=== PATIENT | female | born 1990 | race African-American/Black ===

== ENCOUNTER 2020-05-26 18:20 | Emergency (ER) | payer SELFPAY ==
--- NOTE | ~2020-05-26 | CT_ITS ---
EXAMINATION: CT brain wo con EXAM DATE: 05/26/2020 20:20 INDICATION: Headache, body numbness and tingling, poor appetite. TECHNIQUE: Spiral CT of the head was performed without contrast. Axial, coronal and sagittal images were reviewed. The dose-length product (DLP) for this examination was 681.00 mGy-cm. The exposure w as tailored according to patient size, and iterative reconstruction (ASIR) was used as additional dos e reduction technique. There is no prior study for comparison. FINDINGS: There is no acute intraparenchymal hemorrhage. No evidence of intraparenchymal brain mass lesion. No evidence of acute infarction. There is no mass effect or midline shift. The ventricles are normal in size. There are no extra-axial collections. There are no acute calvarial fractures. T he orbits are unremarkable. Soft tissue is unremarkable. There is mild to moderate bilateral ethmoi d mucoperiosteal thickening. IMPRESSION: 1. No acute intracranial findings. 2. Mild to moderate ethmoid mucoperiosteal thickening. Reviewed, dictated and finalized at location A.
[2020-05-26 18:25] VITALS: BP 117/82; PULSE 80; RESP 17; TEMP 36.9; O2SAT 100
[2020-05-26 18:47] LABS: Basophils Absolute Auto 0.1 K/mm3 (0.0-0.1); Basophils Percent Auto 0.6 % (0.2-1.2); Eosinophils Absolute Auto 0.4 K/mm3 (0-0.3); Eosinophils Percent Auto 3.3 % (0-4.4); Hematocrit 37.2 % (37.0-47.0); Hemoglobin 11.9 g/dL (12.0-15.0); Immature Granulocyte Absolute 0.04 K/mm3 (0.00-0.031); Immature Granulocyte Percent A 0.4 % (0-0.5); Lymphocytes Absolute Auto 2.93 K/mm3 (0.9-3.2); Lymphocytes Percent Auto 25.8 % (18.3-44.2); Mean Corpuscular Hemoglobin 27.6 pg (26-34); Mean Corpuscular Volume 86.3 fl (80-100); Mean Platelet Volume 8.9 fl (7.4-10.4); Monocytes Absolute Auto 0.9 K/mm3 (0.1-0.6); Monocytes Percent Auto 7.8 % (2.6-8.5); Neutrophils Percent Auto 62.1 % (45.5-73.1); Platelet Count Result 447 k/mm3 (150-375); Red Blood Count 4.31 M/mm3 (4.2-5.4); Red Cell Distribution Width 13.9 % (11.5-14.5); White Blood Count 11.4 K/mm3 (4.5-10.0)
[2020-05-26 18:51] LABS: Add Urine Microscopic? YES; Appearance Urine Clear (Clear); Bacteria Urine Trace /hpf; Bilirubin Urine Negative (Negative); Blood Urine Negative (Negative); Color Urine Straw (Yellow); Glucose Urine UA Negative (Negative); Ketones Urine Negative (Negative); Leukocyte Esterase Ur Trace LEU/UL (Negative); Mucus Urine Rare /lpf; Nitrate Urine Negative (Negative); Protein Urine Negative (Negative); Squamous Epithelial Cell Urine Many /hpf (Few); Urobilinogen Urine Negative mg/dL (<2.0); WBC Urine 0-3 /hpf
[2020-05-26 18:59] LABS: Alanine Aminotransferase 17 U/L (4-35); Albumin Level 4.4 g/dL (3.5-5.1); Alkaline Phosphatase 65 U/L (38-126); Anion Gap 10.8 mmol/L (7-16); Aspartate Amino Transferase 31 U/L (14-36); Bilirubin,Total < 0.1 mg/dL (0.2-1.3); Blood Urea Nitrogen 8 mg/dL (7-17); Calcium 9.1 mg/dL (8.4-10.2); Carbon Dioxide 26 mmol/L (22-30); Chloride 104 mmol/L (98-107); Estimated CRCL calculation 116 ml/min; Estimated Glomerular Filt Rate > 60; Glucose 85 mg/dL (65-105); Lipase 51 U/L (23-300); Potassium 3.8 mmol/L (3.4-5.0); Sodium 137 mmol/L (137-145)
--- NOTE | 2020-05-26 19:09 | ED.HA ---
HPI - Headache General Chief Complaint: Headache Stated Complaint: Headache/tingling Time Seen by Provider: 05/26/20 19:08 History of Present Illness HPI Narrative: She has had frequent headaches for the past couple of months. They start in the back of the neck and radiate through the quaker. She says that she can feel something crawling under her skin in her face. She reports that she also has worms in her urine and feces. She was seen about her symptoms at an outside hospital and had what appears to be a negative work-up and was refered for an MRI. She says that she was feeling better so she di not get it. Related Data Home Medications Medication Instructions Recorded Confirmed No Home Medications 05/26/20 05/26/20 Allergies Allergy/AdvReac Type Severity Reaction Status Date / Time No Known Allergies Allergy Verified 05/26/20 18:38 Review of Systems Review of Systems: All systems reviewed & are unremarkable except as noted in HPI and below Constitutional: Constitutional: Reports fatigue and Denies fever(s) Eyes: Eyes: Denies change in vision Cardiovascular: Cardiovascular: Denies chest pain Respiratory: Respiratory: Denies dyspnea Gastrointestinal: Gastrointestinal: Reports nausea Genitourinary: Genitourinary: Denies dysuria Integumentary/Breasts: Skin/Breast: Reports pruritus Neurologic: Reports dizziness, Reports headache(s) and Reports weakness PMFSH Social History Social History (Updated 06/02/20 @ 02:05 by Miller Bonilla MD) Smoking status: Never smoker Gender identity (if verbalized by the patient): Female Exam Const: General: healthy appearing, no acute distress and alert Orientation/consciousness: patient oriented x3 HENMT: Head: normal to inspection Neck: Neck: normal visual inspection and no lymphadenopathy Chest: Chest palpation & inspection: no tenderness Resp: Effort & Inspection: normal respiratory effort Auscultation: clear to auscultation bilaterally, no rales, no rhonchi and no wheezes Cardio: Jugular venous distension: no JVD Rate: regular rate Rhythm: regular rhythm Heart sounds: no murmurs GI: Inspection: non-distended GI Palp: Yes Soft to palpation and No Tenderness to palpation present (GI) Skin: General skin exam: normal color Neuro: General: patient oriented x3 and moves all extremities Speech: normal speech Extrem: General: no edema Psych: Appearance: well kempt Affect: normal affect Course Vital Signs Vital signs: Vital Signs Temperature 36.9 C 05/26/20 18:25 Pulse Rate 80 05/26/20 18:25 Respiratory Rate 17 05/26/20 18:25 Blood Pressure 117/82 05/26/20 18:25 Pulse Oximetry 100 05/26/20 18:25 Temperature 36.7 C 05/26/20 20:40 Pulse Rate 81 05/26/20 20:40 Respiratory Rate 16 05/26/20 20:40 Blood Pressure 116/71 05/26/20 20:40 Pulse Oximetry 98 05/26/20 20:40 MDM - Headache MDM Narrative Medical decision making narrative: Benign exam. I watched the video she provided and it appears to be mucous in her toillet. Will get stool studies if sample is provided. CT brain negative. Feeling better with symptomatic treatment. Lab Data Result diagrams: 05/26/20 18:41 05/26/20 18:41 Labs: Lab Results 05/26/20 05/26/20 05/26/20 Range/Units 18:41 18:41 18:41 WBC 11.4 H (4.5-10.0) K/mm3 RBC 4.31 (4.2-5.4) M/mm3 Hgb 11.9 L (12.0-15.0) g/dL Hct 37.2 (37.0-47.0) % MCV 86.3 (80-100) fl MCH 27.6 (26-34) pg MCHC 32.0 (32-36) g/dl RDW 13.9 (11.5-14.5) % Plt Count 447 H (150-375) k/mm3 MPV 8.9 (7.4-10.4) fl Immature Gran % (Auto) 0.4 (0-0.5) % Neut % (Auto) 62.1 (45.5-73.1) % Lymph % (Auto) 25.8 (18.3-44.2) % [place] % (Auto) 7.8 (2.6-8.5) % Eos % (Auto) 3.3 (0-4.4) % Baso % (Auto) 0.6 (0.2-1.2) % Lymph # (Auto) 2.93 (0.9-3.2) K/mm3 [place] # (Auto) 0.9 H (0.1-0.6) K/mm3 Eos # (Auto) 0.4
[2020-05-26] MEDS: KETOROLAC 30 MG/ML VIAL (*BKC) IV PUSH (19:46)
[2020-05-26] MEDS: SODIUM CHLORIDE 0.9% IV 1,000 ML 999 ML IV CONT (19:46)
[2020-05-26] MEDS: METOCLOPRAMIDE HCL INJ 10 MG/2 ML VIAL IV PUSH (19:47)
[2020-05-26] MEDS: diphenhydrAMINE HCl INJ 50 MG/ML VIAL 25 MG IV PUSH (19:47)
[2020-05-26 20:07] VITALS: BP 114/73; PULSE 84; RESP 16; O2SAT 98
--- NOTE | 2020-05-26 20:07 | PC.NURSE ---
pt asked for tylenol iv to be stopped because it was making her dizzy. aware. no new orders
[2020-05-26 20:40] VITALS: BP 116/71; PULSE 81; RESP 16; TEMP 36.7; O2SAT 98
== END 2020-05-26 20:41 | disposition home or self-care (01) ==
PROVIDERS: Emergency Medicine; Emergency Provider Emergency Medicine
DX: R51 Headache (principal)
CPT/HCPCS: 36415; 70450; 80053; 81001; 81025; 83690; 85025; 96361; 96374; 96375; 99284; J0131; J1200; J1885; J2765; J7030

== ENCOUNTER 2020-07-02 08:54 | Outpatient (CLI) | payer OTHER, SELFPAY ==
--- NOTE | ~2020-07-02 | MR_ITS ---
EXAMINATION: MR brain/brain stem wo/w con DATE: 07/02/2020 10:07 CDT INDICATION: Intermittent severe headache with paresthesias. TECHNIQUE: Magnetic resonance imaging (MRI) of the brain and brainstem was performed without and with 16 cc MultiHance intravenous contrast. Sequences included sagittal and axial T1-weighted SE, axial d iffusion-weighted FS SE, axial T2*-weighted GRE, axial T2-weighted FLAIR Propeller, and axial T2-weig hted Propeller. Apparent diffusion coefficient (ADC) maps were created. COMPARISON: FINDINGS: The brain volume and ventricular system are within normal limits. The brain parenchymal si gnal intensity pattern and milan/white matter is normal and there is no evidence of hemorrhage, space occupying masses or infarctions. The flow signal voids of the major arterial structures about the [place] and within the parth r dural venous sinuses appear grossly unremarkable and patent. The seventh and eighth cranial nerve complexes are normal. The mid sagittal image demonstrates a normal craniovertebral junction and kenny us callosum. There is mucosal thickening of the frontal and ethmoid sinuses. There is rightward nasal septal deviation. Left-sided chandrakant bullosa. No abnormal contrast enhancement was appreciated. IMPRESSION: 1: Mild sinus disease. Otherwise, unremarkable MRI of the brain. Reviewed, dictated and finalized at location A.
[2020-07-02 09:33] LABS: Estimated Glomerular Filt Rate > 60
== END 2020-07-02 08:55 | disposition home or self-care (01) ==
PROVIDERS: PCP Internal Medicine; Visit Provider Emergency Medicine
DX: R51 Headache (principal); R20.2 Paresthesia of skin; J32.9 Chronic sinusitis, unspecified
CPT/HCPCS: 70553; A9577

== ENCOUNTER 2020-07-08 06:33 | Outpatient (CLI) | payer OTHER, SELFPAY ==
--- NOTE | 2020-07-08 12:17 | WPDNEUROLOGY ---
Neurology EEG Report General Information Date of Study: 07/08/20 TEST EEG DIAGNOSIS dizzy spells CONDITION OF RECORDING Awake drowsy and sleep EEG NUMBER [id number] CLINICAL HISTORY patient reported for the last couple of months she has been feeling like something is moving around in her head which makes her dizzy and gives her headaches EEG DESCRIPTION basic resting occipital frequency consist of moderate amount of well-organized low to medium voltage 8 to 10 hertz per 2nd alpha admixed with low-voltage 15 to 18 hertz per 2nd beta. During drowsiness low-voltage beta activity seen diffusely admixed with waxing and waning alpha activity. Bilateral symmetrical sleep activity seen during sleep with normal and symmetrical sleep spindles. Normal EKG artifact is noted intermittently. Non paroxysmal. Nonfocal. Nonlateralizing. IMPRESSION Normal EEG during wakefulness drowsiness and sleep
== END 2020-07-08 06:34 | disposition home or self-care (01) ==
PROVIDERS: PCP Internal Medicine; Visit Provider Internal Medicine
DX: R42 Dizziness and giddiness (principal)
CPT/HCPCS: 95819

== ENCOUNTER 2020-08-05 15:35 | Emergency (ER) | payer OTHER, SELFPAY ==
--- NOTE | 2020-08-05 15:50 | PC.NURSE ---
pt states she is going to another facility to be evaluated. discussed risks of leaving. verbalizes understanding.
== END 2020-08-05 16:03 | disposition left against medical advice (07) ==
PROVIDERS: PCP Internal Medicine
DX: Z53.21 Procedure and treatment not carried out due to patient leaving prior to being seen by health care provider (principal)
CPT/HCPCS: 99199

== ENCOUNTER 2020-08-16 16:08 | Outpatient (CLI) | payer OTHER, SELFPAY ==
[2020-08-16 16:43] LABS: Add Urine Microscopic? YES; Appearance Urine Clear (Clear); Bacteria Urine Trace /hpf; Bilirubin Urine Negative (Negative); Blood Urine Negative (Negative); Color Urine Straw (Yellow); Glucose Urine UA Negative (Negative); Ketones Urine Trace mg/dL (Negative); Leukocyte Esterase Ur Trace LEU/UL (Negative); Nitrate Urine Negative (Negative); Protein Urine Negative (Negative); RBC Urine 0-2 /hpf (0-2); Specific Grav Ur 1.006 (1.001-1.035); Squamous Epithelial Cell Urine Many /hpf (Few); Urobilinogen Urine Negative mg/dL (<2.0); WBC Urine 0-3 /hpf
== END 2020-08-16 16:09 | disposition home or self-care (01) ==
LOC: ANHLAB 16:15
PROVIDERS: PCP Internal Medicine; Visit Provider Internal Medicine
DX: R82.90 Unspecified abnormal findings in urine (principal)
CPT/HCPCS: 81001; 87177; 87209

== ENCOUNTER 2021-02-14 19:57 | Emergency (ER) | payer OTHER, SELFPAY ==
[2021-02-14 20:04] VITALS: BP 108/59; PULSE 116; RESP 20; TEMP 36.7; O2SAT 99
--- NOTE | 2021-02-14 21:38 | ED.URI ---
HPI - URI/Sore Throat General Chief Complaint: Upper Respiratory Infection Stated Complaint: PANIAGUA, BODYACHES, RUNNY NOSE, INSOMNIA, 24 WKS PREG Time Seen by Provider: 02/14/21 21:10 Source: patient Mode of arrival: ambulatory Limitations: no limitations History of Present Illness HPI Narrative: Patient is a 31-year-old female complaining of nasal congestion, runny nose and sore throat that started yesterday. Patient also complaining of not being able to sleep well for the past few months. Patient states that she is 24 weeks . Patient denies any chest pain, shortness of breath, abdominal pain, nausea, vomiting, diarrhea, fever, chills, vaginal bleeding or discharge. Patient wants to get tested for Covid. Related Data Home Medications Medication Instructions Recorded Confirmed No Home Medications 05/26/20 05/26/20 Allergies Allergy/AdvReac Type Severity Reaction Status Date / Time No Known Allergies Allergy Verified 05/26/20 18:38 Review of Systems Review of Systems: All systems reviewed & are unremarkable except as noted in HPI and below Constitutional: Constitutional: Denies body ache(s), Denies chills, Denies excessive sweating, Denies fatigue, Denies fever(s), Denies headache(s), Denies lethargy, Denies malaise, Denies weakness and Denies weight loss Eyes: Eyes: Denies blurry vision, Denies change in vision and Denies loss of vision ENT: Denies dizziness, Denies ear discharge, Denies headache(s), Denies lip swelling, Denies epistaxis, Denies neck pain, Denies throat swelling and Denies tongue swelling Cardiovascular: Cardiovascular: Denies chest pain, Denies chest pain at rest, Denies chest pain with activity, Denies diaphoresis, Denies rapid heart rate, Denies edema, Denies irregular heart rhythm, Denies lightheadedness, Denies palpitations, Denies dyspnea and Denies dyspnea on exertion Respiratory: Respiratory: Denies chest congestion, Denies cough, Denies hemoptysis, Denies dyspnea and Denies dyspnea on exertion Gastrointestinal: Gastrointestinal: Denies abdominal pain, Denies melena, Denies hematochezia, Denies diarrhea, Denies nausea, Denies vomiting and Denies hematemesis Musculoskeletal: Musculoskeletal: Denies abnormal gait, Denies deformity, Denies joint swelling, Denies limited range of motion, Denies neck pain and Denies numbness Neurologic: Denies Abnormal speech present, Denies abnormal gait, Denies confusion, Denies dizziness, Denies headache(s), Denies focal weakness, Denies loss of vision, Denies numbness, Denies Other visual disturbances, Denies Sensory deficit (Neuro) and Denies weakness Psychiatric: Psychiatric: Denies confusion, Denies depression, Denies auditory hallucinations, Denies homicidal ideation and Denies suicidal ideation Endocrine: Endocrine: Denies cold intolerance, Denies excessive sweating, Denies fatigue, Denies heat intolerance and Denies palpitations Hematologic/Lymphatic: Hematologic/Lymphatic: Denies easy bleeding and Denies easy bruising Allergic/Immunologic: Allergic/Immunologic: Denies lip swelling, Denies throat swelling and Denies tongue swelling [facility] Social History Social History (Updated 06/02/20 @ 02:05 by Miller Bonilla MD) Smoking status: Never smoker Gender identity (if verbalized by the patient): Female Comments Past medical history: None Family history: Noncontributory Social history: Non-smoker no EtOH or drug use Exam Const: General: cooperative, healthy appearing, comfortable, no acute distress, well developed, alert and awake; No confusion Orientation/consciousness: oriented to person, oriented to place, oriented to time, patient oriented x3 and No confusion Limitations: no limitations HENMT: Head: normal to inspection, normocephalic and atraumatic Ears: hearing grossly normal bilaterally, TM normal on the right and TM normal on the left General nose exam: Normal external nose present and Normal nares present Face and sinus: normal f
[2021-02-14 21:52] VITALS: BP 103/57; PULSE 100; RESP 16; O2SAT 100
[2021-02-15 18:21] LABS: SARS-CoV-2 RNA PCR Negative
== END 2021-02-14 22:03 | disposition home or self-care (01) ==
PROVIDERS: Emergency Provider Emergency Medicine; PCP Advanced Practice Midwife
DX: O99.512 Diseases of the respiratory system complicating pregnancy, second trimester (principal); J06.9 Acute upper respiratory infection, unspecified; Z20.822 Contact with and (suspected) exposure to COVID-19; Z3A.24 24 weeks gestation of pregnancy
CPT/HCPCS: 99283; C9803; U0003; U0005

== ENCOUNTER 2021-05-20 21:56 | Inpatient (IN) | payer OTHER, SELFPAY ==
[2021-05-20 22:22] VITALS: BP 130/78; PULSE 104
[2021-05-20 22:31] VITALS: BP 132/51; PULSE 87
[2021-05-20 22:46] VITALS: BP 117/74; PULSE 101
[2021-05-20 23:00] VITALS: BP 125/76; PULSE 89
[2021-05-20 23:30] VITALS: BMI 34.4
[2021-05-21] VITALS (96 sets, daily range): BP systolic 98–145; BP diastolic 46–91; PULSE 65–130; RESP 16; TEMP 36.4–37.1; O2SAT 84–100
[2021-05-21 00:25] LABS: Basophils Percent Auto 0.3 % (0.2-1.2); Eosinophils Absolute Auto 0.2 K/mm3 (0-0.3); Eosinophils Percent Auto 1.7 % (0-4.4); Hemoglobin 9.6 g/dL (12.0-15.0); Immature Granulocyte Absolute 0.04 K/mm3 (0.00-0.031); Immature Granulocyte Percent A 0.4 % (0-0.5); Lymphocytes Absolute Auto 1.67 K/mm3 (0.9-3.2); Lymphocytes Percent Auto 17.7 % (18.3-44.2); Mean Corpuscular Volume 80.7 fl (80-100); Mean Platelet Volume 11.1 fl (7.4-10.4); Monocytes Percent Auto 10.4 % (2.6-8.5); Neutrophils Absolute Auto 6.6 K/mm3 (1.3-6.7); Neutrophils Percent Auto 69.5 % (45.5-73.1); Platelet Count Result 316 k/mm3 (150-375); Red Blood Count 3.84 M/mm3 (4.2-5.4); Red Cell Distribution Width 17.2 % (11.5-14.5); White Blood Count 9.4 K/mm3 (4.5-10.0)
--- NOTE | 2021-05-21 04:15 | OBADM ---
This patient, Ysabel Roy, admitted to the OB room Labor/Delivery/Recovery 105 for observation. Patient/family oriented to hospital policies and general routines including ID bracelet, bed and alarms, visiting hours, pain management, procedures, bathroom and other care routines, personal items, smoking policy, room service/diet, and visiting hours. Patient/Family are encouraged to report perceived risks to care and to ask questions if they do not understand what they are told or what they should do.
[2021-05-21] MEDS: LACTATED RINGERS 1,000 ML 125 ML IV CONT ×2 (07:03→08:48)
--- NOTE | 2021-05-21 07:10 | P.PNAN_ITS ---
Anes - Eval Pre Procedure Procedure: labor epidural Date/Time: 05/21/21 07:10 Surgeon: germain Pre Op Diagnosis: CTX Patient Data Age: 31 Gender: F Height: 1.63 m Weight: 91 kg Last Vital Signs Temp 36.8 C 05/21/21 04:00 Pulse 82 05/21/21 07:04 BP 130/46 L 05/21/21 07:04 Allergies Allergy/AdvReac Type Severity Reaction Status Date / Time No Known Allergies Allergy Verified 05/26/20 18:38 Home Medications Medication Instructions Recorded Confirmed Type No Home Medications 05/26/20 05/21/21 History Laboratory Tests 05/20/21 05/20/21 05/20/21 23:58 23:58 23:58 WBC 9.4 K/mm3 K/mm3 (4.5-10.0) RBC 3.84 M/mm3 L M/mm3 (4.2-5.4) Hgb 9.6 g/dL L g/dL (12.0-15.0) Hct 31.0 % L % (37.0-47.0) MCV 80.7 fl fl (80-100) MCH 25.0 pg L pg (26-34) MCHC 31.0 g/dl L g/dl (32-36) RDW 17.2 % H % (11.5-14.5) Plt Count 316 k/mm3 k/mm3 (150-375) MPV 11.1 fl H fl (7.4-10.4) Immature Gran % (Auto) 0.4 % % (0-0.5) Neut % (Auto) 69.5 % % (45.5-73.1) Lymph % (Auto) 17.7 % L % (18.3-44.2) [place] % (Auto) 10.4 % H % (2.6-8.5) Eos % (Auto) 1.7 % % (0-4.4) Baso % (Auto) 0.3 % % (0.2-1.2) Lymph # (Auto) 1.67 K/mm3 K/mm3 (0.9-3.2) [place] # (Auto) 1.0 K/mm3 H K/mm3 (0.1-0.6) Eos # (Auto) 0.2 K/mm3 K/mm3 (0-0.3) Baso # (Auto) 0.0 K/mm3 K/mm3 (0.0-0.1) Abs Immat Gran (auto) 0.04 K/mm3 H K/mm3 (0.00-0.031) Absolute Neuts (auto) 6.6 K/mm3 K/mm3 (1.3-6.7) Absolute Nucleated RBC 0.0 K/mm3 K/mm3 (0.0-0.012) Nucleated RBC % 0.0 % % (0.0-0.2) RPR Pending Blood Type O Positive Antibody Screen Negative Patient hx anesthesia problems: none Family hx anesthesia problems: none PMFSH Social History Social History (Updated 06/02/20 @ 02:05 by Miller Bonilla MD) Smoking status: Never smoker Second hand tobacco smoke exposure: No Substance use: never Gender identity (if verbalized by the patient): Female Sexual Orientation (if Verbalized by the Patient): Straight or Heterosexual Spiritual care concerns: No Exam Day of Procedure 05/21/21 07:10
--- NOTE | 2021-05-21 07:26 | WPDOBADMIT ---
Obstetrics - Admit Note Admission Note: record reviewed. No pertinent additions to the history and/or any subsequent changes in the physical findings that are not consistent with the expected course of the were found. Pt arrived in labor SVE by RN currently 6cm, plans epidural, GBS negative Additions to the history and/or subsequent changes in the physical findings follow. None.
--- NOTE | 2021-05-21 07:52 | PM.OBPNLAB ---
Pain Control Date/time seen: 05/21/21 07:52 AROM minimal amount of odorless fluid, anticipate vaginal delivery
[2021-05-21] MEDS: OXYTOCIN 30 UNITS/NS 500 ML 30 UNITS/500 ML BAG IV CONT (08:48)
--- NOTE | 2021-05-21 12:15 | P.PCNOB_ITS ---
OB - Delivery Note Procedure Delivery date: 05/21/21 Procedure: vaginal delivery Intrapartal events: None Delivery augmentation: rupture of membranes Delivery monitor: external FHT, external uterine and internal uterine Route of delivery: Laceration Description: Periurethral (left) Delivery repair: vicryl Specimen: No Quantitative Blood Loss (ml): 85 Anesthesia type: Epidural Disposition: floor [place] Baby Date of : 05/21/21 Time of : 11:59 Weeks of gestation at delivery: 37 gender: Male Weight (pounds): 6 Weight (ounces): 15 presentation: vertex position: Left Occiput Anterior Placenta delivery description: Spontaneous cord vessel description: 3 Vessels and Clamped/Cut score one minute: 7 score five minutes: 9 Narrative: mother and baby skin to skin in stable condition
[2021-05-21] MEDS: OXYTOCIN 30 UNITS/NS 500 ML 30 UNITS/500 ML BAG 125 UNITS IV CONT (12:29)
[2021-05-21] MEDS: WITCH HAZEL 40 PADS 1 PAD TOPICAL (12:30)
[2021-05-21] MEDS: BENZOCAINE 20% AER SPR (*SP) 56 GM CAN 1 SPRAY TOPICAL (12:30)
--- NOTE | 2021-05-21 16:42 | PC.NURSE ---
Patient transferred to post room #283 via wheelchair. Support person present. Oriented to unit, room, information board, rooming in, admission packet and security measures. Patient verbalizes understanding.
[2021-05-21] MEDS: IBUPROFEN 600 MG TABLET PO (17:43)
[2021-05-21] MEDS: ACETAMINOPHEN 325 MG TABLET 650 MG PO (20:45)
[2021-05-22] VITALS: BP 129/74; PULSE 86; RESP 16; TEMP 36.6
[2021-05-22 05:10] LABS: Hematocrit 28.1 % (37.0-47.0); Hemoglobin 8.8 g/dL (12.0-15.0)
--- NOTE | 2021-05-22 07:35 | WPDANLDPN2 ---
Anes-Prog Note L&D Date/Time: 05/22/21 07:35 Comfortable throughout: labor and delivery Neuraxial method: epidural Epidural/Spinal procedure site: clean & non-tender Neuro status: Neuro function grossly intact. Cardiovascular status: normal Respiratory status: normal Airway patency: baseline Mental status: baseline Post-Op hydration status: normal Vital Signs: Last Vital Signs Temp 36.6 C 05/22/21 00:00 Pulse 86 05/22/21 00:00 Resp 16 05/22/21 00:00 BP 129/74 05/22/21 00:00 Pulse Ox 100 05/21/21 16:45 Pain score (VAS): 0 I/O: Intake & Output 05/21/21 05/21/21 05/22/21 15:59 23:59 07:59 Intake Total 2000 Output Total 85 108 Balance 1915 -108 Post-procedural complaints: none Patient feedback: Patient satisfied with anesthetic care.
[2021-05-22] MEDS: POLYSACCHARIDE IRON COMPLEX 150 MG CAPSULE PO ×2 (07:43→16:04)
[2021-05-22] MEDS: MULTIVIT/MIN/PREN/FOL AC/IRON TABLET 1 TAB PO (07:43)
[2021-05-22] MEDS: IBUPROFEN 600 MG TABLET PO ×4 (07:44→22:42)
[2021-05-22] MEDS: DOCUSATE SODIUM 100 MG CAPSULE PO ×2 (07:44→16:04)
--- NOTE | 2021-05-22 07:52 | PM.OBPNVD ---
OB - PN: Subj Subjective Date/time seen: 05/22/21 07:52 Patient comments: no complaints baby status: doing well OB - PN: Obj Data Labs CBC & Chem 7: 05/22/21 04:23 Labs: Laboratory Results - last 24 hr 05/22/21 04:23 Hgb 8.8 L Hct 28.1 L OB - PN A/P Plan day: 1 Plan: routine care Time Spent With Patient Time: Total time spent is greater than 50% in coordination of care (as documented) at patient's floor/unit and/or counseling patient: Time with patient: less than 15 minutes Review of Systems Review of Systems: All systems reviewed & are unremarkable except as noted in HPI and below Exam Narrative: Fundus firm and vaginal flow controlled. No lower ext redness, warmth, or edema. Negative homans. Const: General: comfortable Chest: Breast/axilla inspection: normal inspection of the breasts Resp: Effort & Inspection: normal respiratory effort Cardio: Rate: regular rate GI: GI Palp: Yes Soft to palpation Psych: Appearance: grossly normal Affect: normal affect Attitude: cooperative Thought content: Yes Normal thought content present Judgement: Good judgement present (Psych)
[2021-05-22 07:55] VITALS: BP 126/85; PULSE 76; RESP 16; TEMP 37.2; O2SAT 100
[2021-05-22 08:05] LABS: Rapid Plasma Reagin Non-Reactive (NonReactive)
--- NOTE | 2021-05-22 10:45 | PC.NURSE ---
Consult with pt., mother has to breast. Infant was latched correctly. Infant nursed eagerly with pausing, with steady draws and frequent swallowing noted. Suggested mother stimulate while feeding to increase stimulate, increase intake and to assist with maintaining deep latch. Demonstrated stimulation techniques to wake for feeding. Reviewed signs of a correct latch, effective nursing and suck swallow ratio. Infant nursed eagerly, with steady draws and occasional swallowing noted. was able to maintain latch without discomfort to mother. Demonstrated how to adjust latch more deeply while feeding if needed. Nipple care reviewed of lanolin after feedings, warm compresses as needed. Reviewed infant feeding cues, frequencies, duration of feedings, feeding elimination flow sheet, and signs of adequate intake. Discussed rational for each. Instructed mother to call out for RN assistance if she is unable to latch for feeding or she has discomfort with nursing. is able to freely thrust tongue past gum ridge and flange both lips. Skin is intact on both nipples, no redness and bruising noted. Instructed mother to call out for RN assistance if she is unable to latch for feeding or she has discomfort with nursing. Instructed feeding should be initiated three hours from start of last feeding or if feeding cues are noted before. Mother voiced understanding of information shared.
[2021-05-22 19:16] VITALS: BP 126/72; PULSE 78; RESP 16; TEMP 36.7
[2021-05-23] MEDS: DOCUSATE SODIUM 100 MG CAPSULE PO ×2 (07:15→16:35)
[2021-05-23] MEDS: POLYSACCHARIDE IRON COMPLEX 150 MG CAPSULE PO ×2 (07:15→16:35)
[2021-05-23] MEDS: MULTIVIT/MIN/PREN/FOL AC/IRON TABLET 1 TAB PO (07:15)
[2021-05-23] MEDS: IBUPROFEN 600 MG TABLET PO ×2 (07:15→16:35)
[2021-05-23] MEDS: LANOLIN (LANSINOH) 7.5 GM CREAM 1 APPLIC TOPICAL (07:16)
[2021-05-23 07:40] VITALS: BP 125/79; PULSE 68; RESP 16; TEMP 36.8; O2SAT 99
--- NOTE | 2021-05-23 08:03 | PM.OBPNVD ---
OB - PN: Subj Subjective Date/time seen: 05/23/21 08:03 Patient comments: no complaints baby status: doing well OB - PN: Obj Data Labs CBC & Chem 7: 05/22/21 04:23 Labs: Laboratory Results - last 24 hr 05/20/21 23:58 RPR Non-reactive OB - PN A/P Plan day: 2 Plan: routine care and discharge home (F/U in 4 weeks) Time Spent With Patient Time: Total time spent is greater than 50% in coordination of care (as documented) at patient's floor/unit and/or counseling patient: Time with patient: less than 15 minutes Review of Systems Review of Systems: All systems reviewed & are unremarkable except as noted in HPI and below Exam Narrative: Fundus firm and vaginal flow controlled. No lower ext redness, warmth, or edema. Negative homans. Const: General: comfortable Chest: Breast/axilla inspection: normal inspection of the breasts Resp: Effort & Inspection: normal respiratory effort Cardio: Rate: regular rate GI: GI Palp: Yes Soft to palpation Psych: Appearance: grossly normal Affect: normal affect Attitude: cooperative Thought content: Yes Normal thought content present Judgement: Good judgement present (Psych)
--- NOTE | 2021-05-23 08:05 | P.DS_ITS ---
DS: Admitting Diagnosis Admitting Diagnosis Labor OB - DS: Summary OB Procedures : None OB Procedures Intrapartum: Spontaneous Vag Delivery OB Procedures: : None Time Spent with Patient Time attestation: Total time spent providing and/or coordinating discharge services: DS: Data Data Completed and Pending Labs on day of discharge: Labs from last 24 hours 05/20/21 23:58 RPR Non-reactive Discharge Plan Discharge Attending physician on discharge: Delilah Gordon Discharging Clinician: Martha Ruby Patient Disposition: Home, Self-Care Activity: pelvic rest Diet: as tolerated Patient Instructions: Antibiotic Form Stand Alone Forms: General Discharge Information Follow-up/Referrals: Delilah Gordon CNM [Certified Nurse [employer]] - Discharge Medications: No Action No Home Medications RF: 0 Date of admission: 05/20/21 22:10 Primary Care Provider: Martha Ruby Admitting Provider: Dudley Moeller Attending physician on admission: Dudley Moeller Condition: Stable
--- NOTE | 2021-05-23 11:00 | PC.NURSE ---
Patient viewed the discharge video Mother & Baby Care, The First Two Weeks . Patient was given the opportunity and encouraged to ask questions. Patient verbalized understanding of information shared and has been given the mother/baby guide for home reference.
--- NOTE | 2021-05-23 11:00 | PC.NURSE ---
Mother called out for assist with feeding, reporting tenderness with feedings on both breasts. Mother states infant has been sleepy and latching eagerly, he then gets sleepy and will be on and off for complete of feeding. is able to freely thrust tongue past gum ridge and flange both lips. Skin is intact on both nipples, slight redness noted to right nipple. Reviewed feeding cues, frequencies, duration of feedings, feeding elimination flow sheet, and signs of adequate intake. Demonstrated stimulation techniques to wake for feeding. Assisted with infant to breast. Reviewed positioning/alignment in cross cradle, holding breast in ?U? hold and guided asymmetrical latch on. Discussed rational for each. Infant able to latch correctly. Infant nursed eagerly, with steady draws and frequent swallowing noted. Suggested mother stimulate while feeding to increase stimulate, increase intake and to assist with maintaining deep latch. Reviewed signs of a correct latch, effective nursing and suck swallow ratio. After 3-5 minutes began with long pausing and would release latch. Mother will allow infant to latch shallow and suck nipple in causing her discomfort. Advised to stimulate during entire feeding trying not to allow to fall asleep and release latch or slip to shallow latch. Demonstrated how to adjust latch more deeply while feeding. Mother reports she can feel change in latch and has no tenderness. responds to stimulation with increased nursing. Mother wants to return to cradle, suggested she continue with cross cradle to assist with deep latch. Nipple care reviewed of lanolin after feedings, warm compresses as needed. Mother is able to independently latch with appropriate positioning/alignment. She denies any nipple discomfort, is feeding as required and waking to feed if needed. has had at least 8 effective feedings in the past 24 hours, and is currently meeting outcomes for weight, output, jaundice and feeding frequencies. Mother states she feels confident to continue effective at home. Reviewed transition to breast milk, signs of adequate intake, and engorgement/relief. Instructed to call ICP if intake/output less than required. Reviewed regular medications mother is taking. Information provided per Donna. Reviewed community resources on the [facility] website and in the Mom/Baby guide. Information on outpatient services provided. Mother has no further questions at this time.
[2021-05-23] MEDS: ACETAMINOPHEN 325 MG TABLET 650 MG PO (19:05)
[2021-05-24 09:49] VITALS: BP 122/61; PULSE 81; RESP 18; O2SAT 100
--- NOTE | 2021-05-24 14:18 | PC.NURSE ---
Pt seen for follow up today, with concerns of 2+ edema to both feed and legs, leg pain on standing, temp of 99.9 and pt reports cervix pain. Fátima Gordon was called, orders for Doppler to both legs, [facility] test to be done today. Fátima will call pt after she receives results and to discuss pain. Pt. is engorged and reviewed engorgement/relief.
== END 2021-05-23 19:35 | disposition home or self-care (01) | DRG 560 ==
LOC: ANHLDR 05-21 11:48 → ANHOB2 05-21 16:51
PROVIDERS: Advanced Practice Midwife; Admitting Provider Obstetrics & Gynecology; PCP Advanced Practice Midwife; Visit Provider Obstetrics & Gynecology
DX: O40.3XX0 Polyhydramnios, third trimester, not applicable or unspecified (principal); O71.82 Other specified trauma to perineum and vulva; O98.52 Other viral diseases complicating childbirth; B00.9 Herpesviral infection, unspecified; O76 Abnormality in fetal heart rate and rhythm complicating labor and delivery; O70.0 First degree perineal laceration during delivery; Z3A.37 37 weeks gestation of pregnancy; Z37.0 Single live birth
CPT/HCPCS: 36415; 85014; 85018; 85025; 86592; 86850; 86900; 86901; A9270; J2590; J2795; J7120

== ENCOUNTER 2022-06-24 08:38 | Emergency (ER) | payer OTHER, SELFPAY ==
--- NOTE | ~2022-06-24 | XR_ITS ---
EXAMINATION: XR chest 1V portable DATE: 06/24/2022 09:04 INDICATION: Cough. TECHNIQUE: A single frontal view of the chest was obtained. COMPARISON: None. FINDINGS: The chest demonstrates clear lungs without pneumonia, pleural effusion, or pneumothorax. Th e heart size is normal. IMPRESSION: 1. No acute cardiopulmonary disease. Reviewed, dictated and finalized at location A.
[2022-06-24 08:45] VITALS: BP 115/69; PULSE 94; RESP 20; TEMP 37.3; O2SAT 100
[2022-06-24 09:27] LABS: Influenza A QL RT-PCR Negative (Negative); Influenza B QL RT-PCR Negative (Negative); SARS-CoV-2 RNA PCR Negative
--- NOTE | 2022-06-24 09:43 | ED.URI ---
HPI - URI/Sore Throat General Chief Complaint: Upper Respiratory Infection Stated Complaint: sore throat, head congestion, infection Time Seen by Provider: 06/24/22 08:46 Source: RN notes reviewed History of Present Illness HPI Narrative: Patient presents emergency department from home for upper respiratory infection. Patient states symptoms began yesterday. Patient states she had a subjective fever as well as bilateral ear pressure sore throat and mild nonproductive cough. She denies any measured temperature she denies any rhinorrhea she denies any chest pain shortness of breath abdominal pain nausea vomiting or any other symptoms. Patient states she not take any medications for the symptoms today Related Data Allergies Allergy/AdvReac Type Severity Reaction Status Date / Time No Known Allergies Allergy Verified 05/26/20 18:38 Review of Systems Review of Systems: Gen.: Reports objective fever denies chills Eyes: Denies eye pain or visual change ENT: See HPI Respiratory: Denies shortness of breath reports nonproductive cough CV: Denies chest pain or palpitations GI: Denies abdominal pain nausea, emesis Musculoskeletal: Denies back pain or muscle pain Neuro: Denies numbness, tingling, weakness or focal weakness Skin: Denies rash Except as documented, all other systems reviewed and negative PMFSH Past Medical History Medical History (Updated 06/24/22 @ 10:23 by Marko Galloway DO) Patient denies significant medical history Social History Social History Smoking status: Never smoker Second hand tobacco smoke exposure: No Substance use: never Gender identity (if verbalized by the patient): Female Sexual Orientation (if Verbalized by the Patient): Straight or Heterosexual Spiritual care concerns: No Exam Narrative: APPEARANCE: No acute distress, nontoxic, resting in bed EYES: EOMI HEENT: Normocephalic, atraumatic, TMs clear bilaterally nares patent oral mucosa moist erythema the posterior pharynx and bilateral tonsils tonsils 2+ with mild whitish exudate uvula midline tolerating own secretions no trismus RESPIRATORY: No respiratory distress Clear to auscultation bilaterally with no rhonchi wheezing or rales. CARDIOVASCULAR: Regular rate and rhythm without murmurs rubs or gallops. ABDOMINAL: Soft, nontender, nondistended, no rebound or guarding MUSCULOSKELETAl: Moves all extremities. No clubbing, cyanosis or edema. NEURO: Awake and alert. Following commands, speech normal, no focal deficits SKIN:: Warm, dry. No rashes lesions or abrasions PSYCHIATRIC: Normal affect/mood, Course Course Emergency Course: Discussed with patient results of workup and diagnosis. Discussed need for follow-up with primary care, proper use of medication, and reasons to return to the emergency department. Patient understands and agrees to current treatment plan Vital Signs Vital signs: Vital Signs Temperature 99.2 F 06/24/22 08:45 Pulse Rate 94 06/24/22 08:45 Respiratory Rate 20 06/24/22 08:45 Blood Pressure 115/69 06/24/22 08:45 Pulse Oximetry 100 06/24/22 08:45 Oxygen Delivery Room Air 06/24/22 08:45 Temperature 99.2 F 06/24/22 08:45 Pulse Rate 94 06/24/22 08:45 Respiratory Rate 20 06/24/22 08:45 Blood Pressure 115/69 06/24/22 08:45 Pulse Oximetry 100 06/24/22 08:45 Oxygen Delivery Room Air 06/24/22 08:45 MDM - URI/Sore Throat MDM Narrative Medical decision making narrative: Patient presents with pharyngitis and ear pressure initial strep screen is negative however patient does have exudates bilaterally suspect strep and will place on Augmentin and wait for culture Lab Data Labs: Lab Results 06/24/22 Range/Units 08:43 Influenza A (RT-PCR) Negative (Negative) Influenza B (RT-PCR) Negative (Negative) SARS-CoV-2 RNA (RT-PCR) Negative Strep Screen Presumptive Negative
[2022-06-24] MEDS: ACETAMINOPHEN 500 MG TABLET 1000 MG PO (09:54)
[2022-06-24 10:00] VITALS: O2SAT 100
[2022-06-24] MEDS: AMOXICILLIN/CLAVULANATE K 875-125 MG TAB 1 TABLET PO (10:35)
== END 2022-06-24 10:41 | disposition home or self-care (01) ==
PROVIDERS: Emergency Provider Emergency Medicine; PCP Advanced Practice Midwife
DX: J02.9 Acute pharyngitis, unspecified (principal); Z20.822 Contact with and (suspected) exposure to COVID-19
CPT/HCPCS: 71045; 87081; 87502; 87880; 99283; A9270; C9803; U0003; U0005

== ENCOUNTER 2022-12-26 09:32 | Emergency (ER) | payer OTHER, SELFPAY ==
[2022-12-26 10:12] VITALS: BP 127/70; PULSE 78; RESP 18; TEMP 36.7; O2SAT 98
--- NOTE | 2022-12-26 11:46 | ED.URI ---
HPI - URI/Sore Throat General Chief Complaint: Upper Respiratory Infection Stated Complaint: nasal congestion Time Seen by Provider: 12/26/22 10:55 Source: patient Mode of arrival: ambulatory Limitations: no limitations History of Present Illness HPI Narrative: 32-year-old female presents today with concerns of congestion and body aches that started today. Patient denies fever, cough, shortness of breath, sore throat. Patient denies significant medical history. She is unsure about sick contacts but she does have 2 children at home. MD elicited complaint: nasal congestion Consistency: constant Related Data Allergies Allergy/AdvReac Type Severity Reaction Status Date / Time No Known Allergies Allergy Verified 05/26/20 18:38 Review of Systems Review of Systems: CONSTITUTIONAL: Denies fever, chills, or sweats. EYES: Denies visual changes, redness, or discharge. ENT: Nasal congestion. Denies rhinorrhea, sore throat, or otalgia. CARDIOVASCULAR: Denies chest pain, palpitations, or edema. RESPIRATORY: Denies cough or dyspnea. GASTROINTESTINAL: Denies abdominal pain, nausea, vomiting, or diarrhea. GENITOURINARY: Denies dysuria or hematuria. SKIN: Denies rash or itching. MUSCULOSKELETAL: Myalgia. Denies back pain, joint pain. NEUROLOGIC: Denies headache, numbness, dizziness, or weakness. PSYCHIATRIC: Denies anxiety or depression. [facility] Past Medical History Medical History (Updated 12/26/22 @ 11:48 by Evette Bullard APRN) Patient denies significant medical history Social History Social History Smoking status: Never smoker Second hand tobacco smoke exposure: No Substance use: never Gender identity (if verbalized by the patient): Female Sexual Orientation (if Verbalized by the Patient): Straight or Heterosexual Spiritual care concerns: No Exam Narrative: GENERAL: Well-appearing, well-nourished, and in no acute distress. HEAD: Normocephalic, atraumatic. EYES: PERRLA and EOMI. ENT: Nares clear, no rhinorrhea or epistaxis. Mucous membranes moist. Oropharynx without tonsillar hypertrophy exudate or other lesions. Bilateral TMs pearly milan nonbulging NECK: Supple. No adenopathy or masses. No carotid bruits or JVD CHEST: Clear to auscultation. No respiratory distress. No wheezes rales or rhonchi HEART: Regular rate and rhythm. No murmur heard. Normal peripheral pulses. EXTREMITIES: Normal range of motion. No edema. SKIN: Warm, dry, no rash. NEURO: No focal deficits. Alert and oriented x3. PSYCH: Normal mood and affect. Course Vital Signs Vital signs: Vital Signs Temperature 98.1 F 12/26/22 10:12 Pulse Rate 78 12/26/22 10:12 Respiratory Rate 18 12/26/22 10:12 Blood Pressure 127/70 12/26/22 10:12 Pulse Oximetry 98 12/26/22 10:12 Oxygen Delivery Room Air 12/26/22 10:12 Temperature 98.1 F 12/26/22 10:12 Pulse Rate 78 12/26/22 10:12 Respiratory Rate 18 12/26/22 10:12 Blood Pressure 127/70 12/26/22 10:12 Pulse Oximetry 98 12/26/22 10:12 Oxygen Delivery Room Air 12/26/22 11:33 MDM - URI/Sore Throat MDM Narrative Medical decision making narrative: 32-year-old female HPI as noted. Work-up to include COVID, influenza, RSV swab. She will be discharged home prior to lab results. Patient was notified via telephone of her lab results: Influenza negative, RSV negative, COVID-negative. Lungs were clear, no fever no concerning signs for pneumonia no need for further imaging at this time. Differential Diagnosis Differential diagnosis: Likely upper respiratory infection, otitis media, sinusitis, viral infection and pharyngitis Medical Records Attestation: I reviewed the patient's medical records. Lab Data Attestation: I reviewed the patient's lab results. Labs: Lab Results 12/26/22 Range/Units 11:53 Influenza A (RT-PCR) Negative (Negative) Influenza B (RT-PCR) Negative (Negative) RSV (RT-PCR)
[2022-12-26 13:00] LABS: Influenza A QL RT-PCR Negative (Negative); Influenza B QL RT-PCR Negative (Negative); RSV RNA, RT-PCR Negative (Negative); SARS-CoV-2 RNA PCR Negative
== END 2022-12-26 12:13 | disposition home or self-care (01) ==
PROVIDERS: Emergency Provider Nurse Practitioner Family; PCP Internal Medicine
DX: J06.9 Acute upper respiratory infection, unspecified (principal); Z20.822 Contact with and (suspected) exposure to COVID-19
CPT/HCPCS: 87637; 99283

== ENCOUNTER 2023-01-21 12:05 | Outpatient (CLI) | payer OTHER, SELFPAY ==
--- NOTE | ~2023-01-21 | US_ITS ---
EXAMINATION: US abdomen complete DATE: 01/21/2023 12:55 INDICATION: Abdominal pain TECHNIQUE: Multiple grayscale and Doppler ultrasound images of the abdomen were obtained. COMPARISON: None available FINDINGS: Bowel gas obscures visualization of the pancreas. The liver is normal with normal echogenic ity and echotexture. No surface nodularity. Normal hepatopetal flow in the main portal vein. The gall bladder is normal with no abnormal wall thickening, pericholecystic fluid or stones. The normal commo n bile duct measures 4 mm. There was no sonographic Arora sign. The visualized portions of the aorta and inferior vena cava are normal. The spleen is normal in appearance and measures 10.1 cm. The right kidney measures 14.5 x 4.2 x 5.2 c m. The left kidney measures 10.3 x 6.1 x 4.8 cm. The kidneys demonstrate normal parenchymal echogenic ity. There is no hydronephrosis. IMPRESSION: 1. No sonographic correlate for the patient's symptoms. Reviewed, dictated and finalized at location B.
== END 2023-01-21 12:06 | disposition home or self-care (01) ==
PROVIDERS: PCP Internal Medicine; Visit Provider Internal Medicine
DX: M54.50 Low back pain, unspecified (principal); R20.9 Unspecified disturbances of skin sensation; R51.9 Headache, unspecified; R10.9 Unspecified abdominal pain
CPT/HCPCS: 76700

== ENCOUNTER 2023-12-16 22:18 | Emergency (ER) | payer OTHER, SELFPAY ==
[2023-12-16 22:20] VITALS: BP 123/63; PULSE 80; RESP 18; TEMP 36.5; O2SAT 98
[2023-12-17] MEDS: PYRIDOXINE HCL 100 MG/ML VIAL (*SPC) 50 MG IV PUSH
[2023-12-17] MEDS: ONDANSETRON INJ 4 MG/2 ML VIAL IV PUSH
[2023-12-17 00:05] VITALS: BP 102/61; PULSE 68; RESP 16; O2SAT 100
[2023-12-17 00:24] LABS: Basophils Absolute Auto 0.1 K/mm3 (0.0-0.1); Basophils Percent Auto 0.4 % (0.2-1.2); Eosinophils Absolute Auto 0.2 K/mm3 (0-0.3); Eosinophils Percent Auto 1.3 % (0-4.4); Hematocrit 40.8 % (37.0-47.0); Hemoglobin 12.7 g/dL (12.0-15.0); Immature Granulocyte Absolute 0.03 K/mm3 (0.00-0.031); Immature Granulocyte Percent A 0.2 % (0-0.5); Lymphocytes Absolute Auto 2.56 K/mm3 (0.9-3.2); Lymphocytes Percent Auto 19.5 % (18.3-44.2); Mean Corpuscular HGB Conc 31.1 g/dl (32-36); Mean Corpuscular Volume 86.6 fl (80-100); Mean Platelet Volume 9.2 fl (7.4-10.4); Monocytes Percent Auto 7.3 % (2.6-8.5); Neutrophils Absolute Auto 9.3 K/mm3 (1.3-6.7); Neutrophils Percent Auto 71.3 % (45.5-73.1); Platelet Count Result 517 k/mm3 (150-375); Red Blood Count 4.71 M/mm3 (4.2-5.4); Red Cell Distribution Width 15.2 % (11.5-14.5); White Blood Count 13.1 K/mm3 (4.5-10.0)
[2023-12-17 00:36] LABS: Anion Gap 5 mmol/L (8-16); Blood Urea Nitrogen 8 mg/dL (7-17); Calcium 9.8 mg/dL (8.4-10.2); Carbon Dioxide 25 mmol/L (22-30); Chloride 104 mmol/L (98-107); Estimated CRCL calculation 144 ml/min; Estimated Glomerular Filt Rate > 60; Glucose 97 mg/dL (65-110); Potassium 4.1 mmol/L (3.4-5.0); Sodium 134 mmol/L (137-145)
[2023-12-17 00:54] LABS: Appearance Urine Cloudy (Clear); Bilirubin Urine Negative (Negative); Blood Urine Negative (Negative); Color Urine Yellow (Yellow); Glucose Urine UA Negative (Negative); Ketones Urine 1+ mg/dL (Negative); Leukocyte Esterase Ur 1+ LEU/UL (Negative); Nitrate Urine Negative (Negative); Protein Urine Trace mg/dL (Negative); Specific Grav Ur 1.028 (1.001-1.035); pH Urine 6.5 (5.0-9.0)
[2023-12-17 00:59] LABS: Bacteria Urine Rare /hpf; RBC Urine 0-2 /hpf (0-2); Squamous Epithelial Cell Urine Occasional /hpf (Few)
[2023-12-17 01:00] LABS: Add Urine Microscopic? YES
[2023-12-17 01:17] VITALS: BP 118/63; PULSE 68; RESP 18; O2SAT 100
--- NOTE | 2023-12-17 01:53 | ED.GENADULT ---
HPI - General Adult General Chief complaint: Nausea/Vomiting/Diarrhea Stated complaint: vomiting, approx 9 weeks Time Seen by Provider: 12/16/23 22:56 History of Present Illness HPI narrative: This is a 33-year-old female at 9 weeks gestation by last menstrual period presenting for nausea and vomiting. She has had nausea for last 2 weeks but had 2 episodes of vomiting yesterday and 2 episodes today. She tried vitamin B6 last week 1 time but it did not work. Patient denies fevers chills chest pain difficulty breathing abdominal pain vaginal bleeding discharge or cramping. Related Data Allergies Allergy/AdvReac Type Severity Reaction Status Date / Time No Known Allergies Allergy Verified 05/26/20 18:38 [facility] Past Medical History Medical History Patient denies significant medical history Social History Social History Smoking status: Never smoker Second hand tobacco smoke exposure: No Substance use: never Gender identity (if verbalized by the patient): Female Sexual Orientation (if Verbalized by the Patient): Straight or Heterosexual Spiritual care concerns: No Exam Narrative: APPEARANCE: No apparent distress. Head: atraumatic. EYES: EOMI, NOSE: Atraumatic NECK: Trachea midline RESPIRATORY: No increased rate of breathing CARDIOVASCULAR: RRR, ABDOMINAL: soft nontender no guarding or rebound MUSCULOSKELETAl: No obvious deformities NEURO: Alert. Moving 4/4 extremities SKIN:: Warm, dry. Normal color PSYCHIATRIC: Normal affect point of care OB ultrasound showed a intrauterine embryo with a visible heart rate Course Vital Signs Vital signs: Vital Signs Temperature 97.7 F 12/16/23 22:20 Pulse Rate 80 12/16/23 22:20 Respiratory Rate 18 12/16/23 22:20 Blood Pressure 123/63 12/16/23 22:20 Pulse Oximetry 98 12/16/23 22:20 Oxygen Delivery Room Air 12/16/23 22:20 Temperature 97.7 F 12/16/23 22:20 Pulse Rate 68 12/17/23 01:17 Respiratory Rate 18 12/17/23 01:17 Blood Pressure 118/63 12/17/23 01:17 Pulse Oximetry 100 12/17/23 01:17 Oxygen Delivery Room Air 12/16/23 22:20 Medical Decision Making MDM Narrative Medical decision making narrative: -Course: 33-year-old female presenting with nausea and vomiting of . Given fluid resuscitation antiemetics. She is then able to tolerate liquids. Patient will be discharged with antiemetics OBGYN follow-up. Urine had 4-6 white blood cells +1 leuk esterase. She will be treated for urinary tract infection -DDX includes but is not limited to: nausea vomiting of , hyperemesis gravidarum -Independent interpretation of studies: white count 13. Laboratory studies within normal limits. Urine showed 4-6 white blood cells +1 leuk esterase -Interventions: 2 L D5 normal, vitamin B6, Zofran -Shared decision making / Disposition: discharge -RX doxylamine, B6, Zofran, vitamin Vital Signs Vital Signs: Vital Signs Temperature 97.7 F 12/16/23 22:20 Pulse Rate 80 12/16/23 22:20 Respiratory Rate 18 12/16/23 22:20 Blood Pressure 123/63 12/16/23 22:20 Pulse Oximetry 98 12/16/23 22:20 Oxygen Delivery Room Air 12/16/23 22:20 Temperature 97.7 F 12/16/23 22:20 Pulse Rate 68 12/17/23 01:17 Respiratory Rate 18 12/17/23 01:17 Blood Pressure 118/63 12/17/23 01:17 Pulse Oximetry 100 12/17/23 01:17 Oxygen Delivery Room Air 12/16/23 22:20 Lab Data 12/17/23 00:04 12/17/23 00:04 Labs: Lab Results 12/17/23 12/17/23 Range/Units 00:04 00:06 WBC 13.1 H (4.5-10.0) K/mm3 RBC 4.71 (4.2-5.4) M/mm3 Hgb 12.7 D (12.0-15.0) g/dL Hct 40.8 (37.0-47.0) % MCV 86.6 (80-100) fl MCH 27.0 (26-34) pg MCHC 31.1 L (32-36) g/dl RDW 15.2 H (11.5-14.5) % Plt Count 517 H D (
[2023-12-17 02:24] VITALS: BP 109/41; PULSE 67; RESP 16; O2SAT 100
== END 2023-12-17 02:26 | disposition home or self-care (01) ==
PROVIDERS: Emergency Provider Emergency Medicine; PCP Internal Medicine
DX: O21.9 Vomiting of pregnancy, unspecified (principal); Z3A.09 9 weeks gestation of pregnancy
CPT/HCPCS: 36415; 80048; 81001; 81025; 85025; 96361; 96374; 96375; 99284; J2405; J3415; J7042

== ENCOUNTER 2024-03-28 11:43 | Emergency (ER) | payer OTHER, SELFPAY ==
[2024-03-28 11:46] VITALS: BP 160/88; PULSE 117; RESP 15; TEMP 36.8; O2SAT 100
[2024-03-28 12:20] VITALS: BP 114/63; PULSE 97; RESP 18; O2SAT 99
--- NOTE | 2024-03-28 12:22 | ED.GENADULT ---
HPI - General Adult General Chief complaint: Psychiatric Symptoms Stated complaint: depression, Time Seen by Provider: 03/28/24 11:56 History of Present Illness HPI narrative: this is a 34 yo @6 month gestation presenting for depression. She has noted difficulty sleeping, loss of interest in normal activities, low energy, difficulty concentrating, loss of appetite over the last several days. This was precipitated by an argument with her although she feels like she was having the symptoms before just realized afterwards. She denies SI HI. She has never been hospitalized for psychiatric illness past. No OB complaints such as abdominal pain, vaginal bleeding or discharge. Related Data Allergies Allergy/AdvReac Type Severity Reaction Status Date / Time No Known Allergies Allergy Verified 03/28/24 11:54 [facility] Past Medical History Medical History Patient denies significant medical history Social History Social History Smoking status: Never smoker Second hand tobacco smoke exposure: No Substance use: never Substance use type: does not use Gender identity (if verbalized by the patient): Female Sexual Orientation (if Verbalized by the Patient): Straight or Heterosexual Spiritual care concerns: No Exam Narrative: APPEARANCE: A&O x4 Head: atraumatic. EYES: EOMI, NOSE: Atraumatic NECK: Trachea midline RESPIRATORY: No increased rate of breathing CTAB CARDIOVASCULAR: RRR, ABDOMINAL: gravid uterus, no tenderness guarding or rebound MUSCULOSKELETAl: No obvious deformities NEURO: Alert. Moving 4/4 extremities SKIN:: Warm, dry. Normal color PSYCHIATRIC: Tearful Course Vital Signs Vital signs: Vital Signs Temperature 98.3 F 03/28/24 11:46 Pulse Rate 117 H 03/28/24 11:46 Respiratory Rate 15 03/28/24 11:46 Blood Pressure 160/88 H 03/28/24 11:46 Pulse Oximetry 100 03/28/24 11:46 Oxygen Delivery Room Air 03/28/24 11:46 Temperature 98.3 F 03/28/24 11:46 Pulse Rate 97 03/28/24 12:20 Respiratory Rate 18 03/28/24 12:20 Blood Pressure 114/63 03/28/24 12:20 Pulse Oximetry 99 03/28/24 12:20 Oxygen Delivery Room Air 03/28/24 11:46 Medical Decision Making MDM Narrative Medical decision making narrative: -Course: 34-year-old female coming with symptoms of depression and . No SI HI or overt psychosis. patient has close follow-up with her OBGYN. She will be discharged follow-up with given strict return precautions for thoughts of harming herself/children. in triage the patient was emotionally upset and had elevated vital signs. When they were rechecked after patient called out a return normal. No concern for preeclampsia at this time -DDX includes but is not limited to: depression, anxiety, adjustment disorder -Co-morbidities complicating care: -Shared decision making / Disposition: discharge with OBGYN follow-up Vital Signs Vital Signs: Vital Signs Temperature 98.3 F 03/28/24 11:46 Pulse Rate 117 H 03/28/24 11:46 Respiratory Rate 15 03/28/24 11:46 Blood Pressure 160/88 H 03/28/24 11:46 Pulse Oximetry 100 03/28/24 11:46 Oxygen Delivery Room Air 03/28/24 11:46 Temperature 98.3 F 03/28/24 11:46 Pulse Rate 97 03/28/24 12:20 Respiratory Rate 18 03/28/24 12:20 Blood Pressure 114/63 03/28/24 12:20 Pulse Oximetry 99 03/28/24 12:20 Oxygen Delivery Room Air 03/28/24 11:46 Discharge Plan Discharge Clinical Impression: Depression Patient Disposition: Home, Self-Care Condition: Stable Instructions: Antibiotic Form, Depression (ED) Additional Instructions: please follow-up with your OBGYN early as possible. Return if you develop thoughts of harming herself or others. You can return to the ED at any time if you would like re-evaluation. Prescriptions: No
== END 2024-03-28 12:38 | disposition home or self-care (01) ==
PROVIDERS: Emergency Provider Emergency Medicine; PCP Internal Medicine
DX: F32.A Depression, unspecified (principal)
CPT/HCPCS: 99281

== ENCOUNTER 2024-07-24 21:28 | Observation (INO) | payer OTHER, SELFPAY ==
--- NOTE | ~2024-07-24 | CT_ITS ---
EXAMINATION: CTA chest PE protocol DATE: 07/25/2024 01:28 INDICATION: Chest pain, shortness of breath and elevated d-dimer. TECHNIQUE: Computed tomography (CT) pulmonary angiogram of the chest was performed with 100 mL Omnipa que-350 intravenous contrast. Additional 3D reconstructions utilizing coronal maximum intensity proje ction (MIP) were performed. Automated exposure control and iterative reconstruction technique were em ployed. The dose-length product was 501.03 mGy-cm. COMPARISON: None FINDINGS: No pulmonary embolism. 6 mm subpleural left lower lobe nodule. No pneumonia, pulmonary edema, pleural effusion or pneumothorax. Cardiomegaly. No pericardial effusion. Thoracic aorta is normal in caliber with no dissection. No pathologically enlarged thoracic lymphadenopathy. And upper abdomen and bones are unremarkable. IMPRESSION: 1. No pulmonary embolism or other acute cardiopulmonary disease. 2. 6 mm left lower lobe nodule. Consider 6-12 month follow-up low-dose noncontrast chest CT. Reviewed, dictated and finalized at location A. IMPRESSION: 1. No pulmonary embolism or other acute cardiopulmonary disease. 2. 6 mm left lower lobe nodule. Consider 6-12 month follow-up low-dose noncontr ast chest CT.
--- NOTE | ~2024-07-24 | XR_ITS ---
EXAMINATION: XR chest 2V DATE: 07/24/2024 21:51 INDICATION: Chest pain. TECHNIQUE: Frontal and lateral views of the chest were obtained. COMPARISON: Chest single view 06/24/2022 FINDINGS: There is no pneumonia, pleural effusion, or pneumothorax. Cardiomegaly is noted. IMPRESSION: 1. Cardiomegaly. Reviewed, dictated and finalized at location A. IMPRESSION: 1. Cardiomegaly.
[2024-07-24 21:30] VITALS: BP 136/82; PULSE 81; RESP 20; TEMP 36.6; O2SAT 100
--- NOTE | 2024-07-24 21:35 | ECG_ITS ---
Test Date: 2024-07-24 21:38:46 Measurements Intervals [place] Rate: 73 P: 33 NH: 147 QRS: -1 QRSD: 89 T: 29 QT: 348 QTc: 384 Interpretive Statements SINUS RHYTHM VOLTAGE CRITERIA FOR LVH [MEETS CRITERIA IN ONE OF: R(aVL), S(V1), R(V5), R(V5/V6)+S(V1)] No previous ECG available for comparison Electronically Signed On 07-25-2024 16:18:33 CDT by Messi Ibrahim M.D.
[2024-07-24 21:49] LABS: Basophils Absolute Auto 0.1 K/mm3 (0.0-0.1); Basophils Percent Auto 0.5 % (0.2-1.2); Eosinophils Absolute Auto 0.4 K/mm3 (0-0.3); Eosinophils Percent Auto 3.9 % (0-4.4); Hematocrit 40.4 % (37.0-47.0); Hemoglobin 12.6 g/dL (12.0-15.0); Immature Granulocyte Absolute 0.02 K/mm3 (0.00-0.031); Immature Granulocyte Percent A 0.2 % (0-0.5); Lymphocytes Absolute Auto 2.58 K/mm3 (0.9-3.2); Lymphocytes Percent Auto 27.1 % (18.3-44.2); Mean Corpuscular HGB Conc 31.2 g/dl (32-36); Mean Corpuscular Hemoglobin 26.5 pg (26-34); Mean Corpuscular Volume 84.9 fl (80-100); Mean Platelet Volume 9.1 fl (7.4-10.4); Monocytes Absolute Auto 0.7 K/mm3 (0.1-0.6); Monocytes Percent Auto 7.7 % (2.6-8.5); Neutrophils Absolute Auto 5.8 K/mm3 (1.3-6.7); Neutrophils Percent Auto 60.6 % (45.5-73.1); Platelet Count Result 458 k/mm3 (150-375); Red Blood Count 4.76 M/mm3 (4.2-5.4); Red Cell Distribution Width 18.1 % (11.5-14.5); White Blood Count 9.5 K/mm3 (4.5-10.0)
[2024-07-24 21:59] LABS: Alanine Aminotransferase 30 U/L (6-35); Albumin Level 4.1 g/dL (3.5-5.1); Alkaline Phosphatase 90 U/L (38-126); Anion Gap 11 mmol/L (4-12); Aspartate Amino Transferase 33 U/L (14-36); Bilirubin,Total 0.3 mg/dL (0.2-1.3); Blood Urea Nitrogen 18 mg/dL (7-17); Calcium 8.8 mg/dL (8.4-10.2); Carbon Dioxide 23 mmol/L (22-30); Chloride 103 mmol/L (98-107); Estimated Glomerular Filt Rate > 60; Glucose 124 mg/dL (65-110); Lipase 74 U/L (23-300); Potassium 3.7 mmol/L (3.4-5.0); Sodium 137 mmol/L (137-145)
[2024-07-24 22:02] LABS: INR 1.1
[2024-07-24 22:03] LABS: Partial Thromboplastin Time 29.9 Seconds (22.3-36.8)
[2024-07-24 22:11] LABS: Troponin I < 0.012 ng/mL (0.000-0.034)
[2024-07-24 23:14] LABS: Uric Acid 5.5 mg/dL (2.5-7.5)
[2024-07-24 23:19] LABS: Add Urine Microscopic? YES; Appearance Urine Clear (Clear); Bacteria Urine None Seen /hpf; Bilirubin Urine Negative (Negative); Blood Urine Negative (Negative); Color Urine Yellow (Yellow); Glucose Urine UA Negative (Negative); Ketones Urine Negative (Negative); Leukocyte Esterase Ur 1+ LEU/UL (Negative); Nitrate Urine Negative (Negative); Non Pathogenic Casts 0-2; Protein Urine Negative (Negative); RBC Urine 0-2 /hpf (0-2); Specific Grav Ur 1.019 (1.001-1.035); Squamous Epithelial Cell Urine None Seen /hpf (Few)
[2024-07-24 23:22] VITALS: O2SAT 100
[2024-07-24 23:24] LABS: NT Pro B Type Natriuretic Pept < 20 pg/mL (19.9-100)
[2024-07-24 23:32] LABS: Alveolar/Arterial O2 Gradient 15.2 mmHg; Base Excess ABG -2.7 mEq/l (+/-2.0); Device ROOM AIR; Fractional Inspired Oxygen 21 %; HCO3 ABG 21.9 mEq/l (22.0-26.0); Oxygen Content ABG 17.7 %vol (16.0-22.0); Oxygen Saturation ABG 96.8 % (95.0-100.0); Oxyhemoglobin 95.7 % THb (90.0-100.0); PCO2 ABG 37.6 mmHg (35.0-45.0); PO2 ABG 89.5 mmHg (80.0-100.0); PO2 FiO2 Ratio Arterial Blood 4.26 %; Site Drawn RIGHT BRACHIAL; Total Hemoglobin 13.1 g/dL (12.0-18.0); pH ABG 7.383 (7.350-7.450)
[2024-07-24 23:48] LABS: Influenza A QL RT-PCR Negative (Negative); Influenza B QL RT-PCR Negative (Negative); RSV RNA, RT-PCR Negative (Negative); SARS-CoV-2 RNA PCR Negative (Negative)
[2024-07-25] VITALS (11 sets, daily range): BP systolic 120–140; BP diastolic 58–88; PULSE 60–88; RESP 15–20; TEMP 36.7–36.9; O2SAT 98–100
--- NOTE | 2024-07-25 | ECHO_ITS ---
Patient Info Name: Ysabel Roy Age: 34 years : 1990 Gender: Female Ht: 64 in Wt: 203 lbs BSA: 2.08 m2 HR: 75 bpm BP: 115 / 70 mmHg Heart Rhythm: Sinus Rhythm Technical Quality: Good Exam Date: 07/25/2024 1:14 PM Exam Location: Echo Lab Patient Status: Inpatient Admit Date: 07/25/2024 Staff Ordering Physician: Mani Lala MD Barrel Stave Inspector: Curtis Madison RDCS Attending Provider: Tonny Mansfield MD Exam Type: CA echo doppler color flow Study Info Indications - chest pain, elevated troponin Complete two-dimensional, color flow and Doppler transthoracic echocardiogram is performed. Summary 1. Complete two-dimensional, color flow and Doppler transthoracic echocardiogram is performed. 2. Left ventricular chamber dimension is normal. 3. Left ventricular systolic function is normal, estimated at 65-70%. 4. The left ventricular diastolic function is normal. 5. Right ventricular chamber dimension is normal. 6. Right ventricular systolic function is normal. 7. No significant valvular abnormalities. Left Ventricle Left ventricular chamber dimension is normal. Left ventricular systolic function is normal, estimated at 65-70%. There is no increased left ventricular wall thickness. Left ventricular septal wall motion is normal. The left ventricular diastolic function is normal. Right Ventricle Right ventricular chamber dimension is normal. Right ventricular systolic function is normal. Left Atria Left atrial chamber dimension is normal. Right Atria Right atrial chamber dimension is normal. Aortic Valve The aortic valve is trileaflet. There is no aortic valve sclerosis. There is no aortic valve stenosis. There is no aortic valve regurgitation. Pulmonic Valve The pulmonic valve is normal. There is no pulmonic valve stenosis. There is no pulmonic regurgitation. Mitral Valve The mitral valve has normal leaflets. There is no mitral valve stenosis. There is no mitral valve regurgitation. Tricuspid Valve The tricuspid valve leaflets are normal. There is no significant tricuspid valve stenosis. There is no tricuspid valve regurgitation. No pulmonary hypertension, estimated pulmonary arterial systolic pressure is 27 mmHg. Pericardium/Pleural The pericardium appears normal. There is no pericardial effusion. Inferior Vena Cava Normal inferior vena cava with >50% collapse upon inspiration consistent with normal right atrial pressure, 5 mmHg. Aorta The aortic root size at the sinus of Valsalva is normal. The prox ascending aorta size is normal. Left Ventricular Outflow Tract Name Value Normal LVOT 2D LVOT Diameter 1.9 cm LVOT Doppler LVOT Peak Gradient 5 mmHg LVOT Mean Gradient 3 mmHg LVOT VTI 25 cm LVOT VTI/AV VTI Ratio 0.8 LVOT Stroke Volume 72 ml LVOT CO 4.7 l/min LVOT CI 2.3 l/min/m2 Pulmonic Valve Name Value Normal
[2024-07-25 00:04] LABS: D Dimer 0.54 ug/mL (<0.48)
--- NOTE | 2024-07-25 00:17 | ECG_ITS ---
Test Date: 2024-07-25 00:23:51 Measurements Intervals [place] Rate: 75 P: 40 AR: 151 QRS: 22 QRSD: 88 T: 24 QT: 371 QTc: 414 Interpretive Statements SINUS RHYTHM Compared to ECG 07/24/2024 21:38:46 no changes Electronically Signed On 07-25-2024 16:20:00 CDT by Messi Ibrahim M.D.
[2024-07-25 01:03] LABS: Troponin I 0.098 ng/mL (0.000-0.034)
--- NOTE | 2024-07-25 01:15 | ED.GENADULT ---
HPI - General Adult General Chief complaint: Chest Pain Stated complaint: chest pain for 30 min. Time Seen by Provider: 07/24/24 22:44 History of Present Illness HPI narrative: Patient 34-year-old female who presents emergency department with chief complaint chest pain and shortness of breath. 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 Patient states that she had no complications during the but did have a little bit of edema afterwards the patient states that has been getting better the patient reports that she has not had any PND denies orthopnea but does report dyspnea on exertion Related Data Allergies Allergy/AdvReac Type Severity Reaction Status Date / Time No Known Allergies Allergy Verified 07/24/24 21:29 Review of Systems Review of Systems: A 10 system review of systems was completed on the patient and is negative except for what is stated in the HPI. Nursing and ancillary documentation was reviewed. [facility] Past Medical History Medical History Patient denies significant medical history Social History Social History Smoking status: Never smoker Second hand tobacco smoke exposure: No Substance use: never Substance use type: does not use Gender identity (if verbalized by the patient): Female Sexual Orientation (if Verbalized by the Patient): Straight or Heterosexual Spiritual care concerns: No Exam Narrative: GENERAL: Well-appearing, well-nourished, and in no acute distress. HEAD: Normocephalic, atraumatic. EYES: PERRLA and EOMI. ENT: Nares clear, no rhinorrhea or epistaxis. Mucous membranes moist. NECK: Supple. CHEST: Clear to auscultation. No respiratory distress. HEART: Regular rate and rhythm. No murmur heard. Normal peripheral pulses. ABDOMEN: Soft, nontender, nondistended, normal active bowel sounds. EXTREMITIES: Normal range of motion. Trace edema. SKIN: Warm, dry, no rash. NEURO: No focal deficits. Alert and oriented x3. PSYCH: Normal mood and affect. Course Vital Signs Vital signs: Vital Signs Temperature 36.6 C 07/24/24 21:30 Pulse Rate 81 07/24/24 21:30 Respiratory Rate 20 07/24/24 21:30 Blood Pressure 136/82 07/24/24 21:30 Pulse Oximetry 100 07/24/24 21:30 Oxygen Delivery Room Air 07/24/24 21:30 Temperature 36.6 C 07/24/24 21:30 Pulse Rate 67 07/25/24 03:14 Respiratory Rate 17 07/25/24 03:14 Blood Pressure 126/64 07/25/24 03:14 Pulse Oximetry 98 07/25/24 03:14 Oxygen Delivery Room Air 07/24/24 23:22 Medical Decision Making MDM Narrative Medical decision making narrative: Differential diagnosis includes pulmonary embolism, cardiomyopathy, myocarditis, pericarditis, EKG showed no acute ischemic changes initial troponin was -3 hour repeat troponin increased to 0.098 6 hour troponin is 0.123 D-dimer was slightly elevated BNP is less than 20 urinalysis showed no evidence of proteinuria uric acid was negative Chest x-ray showed mild cardiomegaly CTA chest showed no evidence of pulmonary embolism no pericardial effusion no dissection Given the elevated troponin the patient will be started on heparin the patient will be admitted to the hospitalist service cardiology was consult to the patient received aspirin in the emergency department. Vital Signs Vital Signs: Vital Signs Temperature 36.6 C 07/24/24 21:30 Pulse Rate 81 07/24/24 21:30 Respiratory Rate 20 07/24/24 21:30 Blood Pressure 136/82 07/24/24 21:30 Pulse Oximetry 100 07/24/24 21:30 Oxygen Delivery Room Air 07/24/24 21:30 Temperature 36.6 C 07/24/24 21:30 Pulse
--- NOTE | 2024-07-25 03:07 | ECG_ITS ---
Test Date: 2024-07-25 03:18:40 Measurements Intervals [place] Rate: 70 P: 34 MD: 152 QRS: 14 QRSD: 91 T: 29 QT: 388 QTc: 419 Interpretive Statements SINUS RHYTHM MINIMAL VOLTAGE CRITERIA FOR LVH, CONSIDER NORMAL VARIANT [MEETS CRITERIA IN ONE OF: R(aVL), S(V1), R(V5), R(V5/V6)+S(V1)] ST-elevation in leads 1 and aVL likely early repolarization Compared to ECG 07/25/2024 00:23:51 No significant changes Electronically Signed On 07-25-2024 16:20:33 CDT by Messi Ibrahim M.D.
[2024-07-25 03:40] LABS: Troponin I 0.123 ng/mL (0.000-0.034)
--- NOTE | 2024-07-25 04:05 | PM.IMHP ---
H&P: HPI History of Present Illness Date/Time: 07/25/24 04:05 Chief Complaint: chest pain Narrative: This is a 34-year-old female with no significant past medical history patient is 2 weeks presents to the emergency room due to chest pain localized to the retrosternal area with radiation to the neck and shoulder down the arm with dizziness lightheadedness this happened intermittently with exertion. Preliminary workup is significant for troponins x2 0.012/0.[address] angiogram of facial report is pending at this time but patient was ruled out for pulmonary embolism. Patient is being admitted for further evaluation management and treatment. EXAMINATION: XR chest 2V DATE: 07/24/2024 21:51 INDICATION: Chest pain. TECHNIQUE: Frontal and lateral views of the chest were obtained. COMPARISON: Chest single view 06/24/2022 FINDINGS: There is no pneumonia, pleural effusion, or pneumothorax. Cardiomegaly is noted. IMPRESSION: 1. Cardiomegaly. Review of Systems Review of Systems: Chest pain, dizziness, lightheadedness Constitutional: Constitutional: Denies chills, Denies fever(s), Denies night sweats and Denies weakness Eyes: Eyes: Denies change in vision ENT: Denies dysphagia, Denies vertigo, Denies dizziness and Denies odynophagia Cardiovascular: Cardiovascular: Reports chest pain, Reports chest pain with activity, Denies syncope, Reports lightheadedness, Reports radiating jaw, neck or arm pain and Denies palpitations Respiratory: Respiratory: Denies chest congestion and Denies cough Gastrointestinal: Gastrointestinal: Denies abdominal pain, Denies nausea and Denies vomiting Genitourinary: Genitourinary: Denies dysuria Musculoskeletal: Musculoskeletal: Denies myalgias and Denies muscle weakness Integumentary/Breasts: Skin/Breast: Denies rash Neurologic: Denies focal weakness and Denies Sensory deficit (Neuro) Psychiatric: Psychiatric: Reports no additional psychiatric complaints and Reports as per HPI Endocrine: Endocrine: Denies cold intolerance, Denies heat intolerance, Denies polyphagia, Denies polydipsia and Denies polyuria Hematologic/Lymphatic: Hematologic/Lymphatic: Reports no additional hematologic/lymphatic complaints and Reports as per HPI Allergic/Immunologic: Allergic/Immunologic: Reports no additional allergic/immunologic complaints and Reports as per HPI [facility] Past Medical History Medical History Patient denies significant medical history Family History Family History (Updated 07/25/24 @ 12:52 by Mahnaz Lino RN) Other Unknown family medical history Social History Social History Smoking status: Never smoker Second hand tobacco smoke exposure: No Substance use: never Substance use type: does not use Gender identity (if verbalized by the patient): Female Sexual Orientation (if Verbalized by the Patient): Straight or Heterosexual Spiritual care concerns: No Meds Home Medications and Allergies Home Medications Medication Instructions Recorded Confirmed Type multivitamin no.47-iron fum 27 1 cap PO DAILY #90 caps 12/17/23 07/25/24 Rx mg-folate no.1 1 mg-dha 300 mg capsule (PNV-DHA) cephalexin 500 mg capsule 500 mg PO Q12H #10 caps 07/25/24 Rx docusate sodium 100 mg capsule 100 mg PO Q12H 07/25/24 07/25/24 History Allergies Allergy/AdvReac Type Severity Reaction Status Date / Time No Known Allergies Allergy Verified 07/24/24 21:29 Vital Signs Vital Signs - 24 hr 07/24/24 21:30 07/24/24 23:22 07/25/24 02:28 Temperature 98 F Pulse Rate 81 66 Respiratory Rate 20 15 Blood Pressure 136/82 130/82 Pulse Oximetry 100 100 98 Oxygen Delivery Room Air Room Air 07/25/24 03:14 Temperature Pulse Rate 67 Respiratory Rate 17 Blood Pressure 126/64 Pulse Oximetry 98 Oxygen [employer]
[2024-07-25] MEDS: HEPARIN SODIUM 5,000 UNITS/ML VIAL 4000 UNITS IV PUSH (04:43)
[2024-07-25] MEDS: HEPARIN SOD/D5W 100 UNITS/ML 25,000 UNITS/250 ML BAG 8 UNITS IV CONT (04:44)
--- NOTE | 2024-07-25 07:17 | ADMGEN ---
This patient, Ysabel Roy, was admitted to IMU Room 206-02 on 07/25/24 at 0717. Patient/family oriented to hospital policies and general routines including ID bracelet, bed and alarms, visiting hours, pain management, procedures, bathroom and other care routines, personal items, smoking policy, room service/diet, and visiting hours. Information on how to activate the Rapid Response Team has been discussed. Patient/Family are encouraged to report perceived risks to care and to ask questions if they do not understand what they are told or what they should do.
--- NOTE | 2024-07-25 10:35 | PM.IMPN ---
Progress Note: A&P Assessment and Plan (1) Chest pain: Code(s): R07.9 - Chest pain, unspecified Status: Acute Assessment and Plan: Troponin trend upward suggesting ACS CTA negative for PE morphine /nitro as needed oxygen by nasal cannula as needed (2) Elevated troponin: Code(s): R79.89 - Other specified abnormal findings of blood chemistry Status: Acute Assessment and Plan: started heparin drip continue to trend cardiology consult (3) UTI (urinary tract infection): Code(s): N39.0 - Urinary tract infection, site not specified Status: Acute Assessment and Plan: started Rocephin (4) Thrombocytosis: Code(s): D75.839 - Thrombocytosis, unspecified Status: Acute Assessment and Plan: follow-up in outpatient setting continue to monitor Subjective Date/time seen: 07/25/24 10:35 Interval history: Chest pain has resolved. Currently sleeping. Discussed with the family at bedside. Review of Systems Review of Systems: All systems reviewed & are unremarkable except as noted in HPI and below Exam Narrative: GENERAL: Well-appearing, well-nourished, and in no acute distress. HEAD: Normocephalic, atraumatic. EYES: PERRLA and EOMI. ENT: Nares clear, no rhinorrhea or epistaxis. Mucous membranes moist. NECK: Supple. CHEST: Clear to auscultation. No respiratory distress. HEART: Regular rate and rhythm. No murmur heard. Normal peripheral pulses. ABDOMEN: Soft, nontender, nondistended, normal active bowel sounds. EXTREMITIES: Normal range of motion. Trace edema. SKIN: Warm, dry, no rash. NEURO: No focal deficits. Alert and oriented x3. PSYCH: Normal mood and affect. Objective Data Vital Signs Vital Signs: Vital Signs - 24 hr 07/24/24 21:30 07/24/24 23:22 07/25/24 02:28 Temperature 98 F Pulse Rate 81 66 Respiratory Rate 20 15 Blood Pressure 136/82 130/82 Pulse Oximetry 100 100 98 Oxygen Delivery Room Air Room Air 07/25/24 03:14 07/25/24 04:34 07/25/24 05:49 Temperature Pulse Rate 67 66 63 Respiratory Rate 17 15 15 Blood Pressure 126/64 120/64 140/88 Pulse Oximetry 98 100 100 Oxygen Delivery 07/25/24 07:48 Temperature 98.5 F Pulse Rate 60 Respiratory Rate 16 Blood Pressure 123/71 Pulse Oximetry 100 Oxygen Delivery Intake/Output Intake/Output: Intake & Output 07/22/24 07/23/24 07/24/24 07/25/24 23:59 23:59 23:59 23:59 Intake Total 50 Balance 50 Meds/Results Medications: Active Medications Generic Name Dose Route Start Last Admin Trade Name Freq PRN Reason Stop Dose Admin Acetaminophen 650 mg 07/25/24 04:07 Acetaminophen 325 Mg Tablet PO Q4H PRN Mild Pain (1-3) or Fever Heparin Sodium (Porcine) 4,000 units 07/25/24 04:04 Heparin Sodium 5,000 Units/Ml Vial IV PUSH PRN PRN aPTT less than 55 seconds Heparin Sodium (Porcine) 3,000 units 07/25/24 04:04 Heparin Sodium 5,000 Units/Ml Vial IV PUSH PRN PRN aPTT 55 - 70 seconds Ceftriaxone Sodium 1 gm in 50 mls @ 100 mls/hr 07/26/24 06:00 Rocephin 1 Gm/Ns 50 Ml IVPB Q24H ROBE Heparin Sodium/Dextrose 25,000 units in 250 mls @ 8 mls/hr 07/25/24 04:05 07/25/24 04:44 Heparin Sodium/D5w 100 Units/Ml IV CONT 800 units/hr .Q24H ROBE 8 mls/hr Administration Protocol 800 UNITS/HR Perflutren Lipid Microsphere 0 ml 07/25/24 04:12 Perflutren Lipid Microspheres 1.5 Ml Vial Diluted To 10 Ml Total Volume IV PUSH 07/28/24 04:13 ONCE PRN adequate visualization Protocol Radiology Results: ITS Impressions Chest X-Ray 07/24/24 21:53 IMPRESSION: 1. Cardiomegaly. Chest CTA 07/25/24 07:19 IMPRESSION: 1. No pulmonary embolism or other acute cardiopulmonary disease. 2. 6 mm left lower lobe nodule. Consider 6-12 month follow-up low-dose noncontrast chest CT. Labs Labs: Laboratory Results - last 24 hr 07/24/24
[2024-07-25 10:48] LABS: Basophils Absolute Auto 0.1 K/mm3 (0.0-0.1); Basophils Percent Auto 0.7 % (0.2-1.2); Eosinophils Absolute Auto 0.3 K/mm3 (0-0.3); Eosinophils Percent Auto 4.2 % (0-4.4); Hematocrit 41.7 % (37.0-47.0); Immature Granulocyte Absolute 0.01 K/mm3 (0.00-0.031); Immature Granulocyte Percent A 0.1 % (0-0.5); Lymphocytes Absolute Auto 2.18 K/mm3 (0.9-3.2); Lymphocytes Percent Auto 29.7 % (18.3-44.2); Mean Corpuscular HGB Conc 31.2 g/dl (32-36); Mean Corpuscular Hemoglobin 26.5 pg (26-34); Mean Corpuscular Volume 85.1 fl (80-100); Mean Platelet Volume 9.5 fl (7.4-10.4); Monocytes Absolute Auto 0.5 K/mm3 (0.1-0.6); Monocytes Percent Auto 6.8 % (2.6-8.5); Neutrophils Absolute Auto 4.3 K/mm3 (1.3-6.7); Neutrophils Percent Auto 58.5 % (45.5-73.1); Platelet Count Result 488 k/mm3 (150-375); Red Cell Distribution Width 18.6 % (11.5-14.5); White Blood Count 7.3 K/mm3 (4.5-10.0)
[2024-07-25 11:00] LABS: Partial Thromboplastin Time 34.9 Seconds (22.3-36.8)
[2024-07-25 13:11] LABS: Cholesterol 188 mg/dL (0-200); HDL Direct 63 mg/dL; Triglycerides 57 mg/dL (<150)
--- NOTE | 2024-07-25 13:13 | PM.CNCAR ---
Assessment and Plan Assessment and plan (1) Elevated troponin: Code(s): R79.89 - Other specified abnormal findings of blood chemistry Status: Acute Plan Mildly elevated troponin with normal EKG and no dynamic EKG changes. No clinical evidence is of ACS. And symptoms are atypical possible demand type 2 ischemia. 2 weeks Plan Transthoracic echocardiogram to rule out stress induced myopathy or cardiomyopathy Echocardiogram is unremarkable patient can be discharged follow-up in the clinic History of Present Illness History of Present Illness Consult date/time: 07/25/24 13:13 Reason For Visit: chest pain for 30 min. Narrative: 34-year-old female patient brought into the hospital with acute episode of chest pain. She had 2 episodes chest pain once yesterday and another 1 to days ago. Chest pain sharp retrosternal radiating to shoulder and the neck. HX of the pain lasted 40 minute. Pain without precipitating or relieving factors. She had no prior similar episodes in the past. She is 2 weeks. Currently she feels good no problem. She was admitted overnight for observation and management of mildly elevated troponin found in her lab. Overnight no acute events. Review of Systems Review of Systems: All systems reviewed & are unremarkable except as noted in HPI and below PMFSH Past Medical History Medical History Patient denies significant medical history Family History Family History (Updated 07/25/24 @ 12:52 by Mahnaz Lino RN) Other Unknown family medical history Social History Social History Smoking status: Never smoker Second hand tobacco smoke exposure: No Substance use: never Substance use type: does not use Gender identity (if verbalized by the patient): Female Sexual Orientation (if Verbalized by the Patient): Straight or Heterosexual Spiritual care concerns: No Meds Home Medications and Allergies Home Medications Medication Instructions Recorded Confirmed Type multivitamin no.47-iron fum 27 1 cap PO DAILY #90 caps 12/17/23 07/25/24 Rx mg-folate no.1 1 mg-dha 300 mg capsule (PNV-DHA) docusate sodium 100 mg capsule 100 mg PO Q12H 07/25/24 07/25/24 History Allergies Allergy/AdvReac Type Severity Reaction Status Date / Time No Known Allergies Allergy Verified 07/24/24 21:29 Vital Signs Vital Signs - 24 hr 07/24/24 21:30 07/24/24 23:22 07/25/24 02:28 Temperature 36.6 C Pulse Rate 81 66 Respiratory Rate 20 15 Blood Pressure 136/82 130/82 Pulse Oximetry 100 100 98 Oxygen Delivery Room Air Room Air 07/25/24 03:14 07/25/24 04:34 07/25/24 05:49 Temperature Pulse Rate 67 66 63 Respiratory Rate 17 15 15 Blood Pressure 126/64 120/64 140/88 Pulse Oximetry 98 100 100 Oxygen Delivery 07/25/24 07:48 07/25/24 11:43 07/25/24 08:00 Temperature 36.9 C 36.7 C Pulse Rate 60 69 62 Respiratory Rate 16 20 Blood Pressure 123/71 123/58 L Pulse Oximetry 100 100 Oxygen Delivery 07/25/24 10:00 07/25/24 12:00 07/25/24 08:00 Temperature Pulse Rate 75 62 Respiratory Rate Blood Pressure Pulse Oximetry Oxygen Delivery Room Air 07/25/24 12:00 Temperature Pulse Rate Respiratory Rate Blood Pressure Pulse Oximetry Oxygen Delivery Room Air Exam Const: General: comfortable and no acute distress Other: Able to lie flat HENMT: Face/Nose/Sinus: Normal nares present and no epistaxis Mouth: Yes moist mucous membranes Eyes: Sclera: sclerae normal Pupils: Equal, round and reactive pupils present Neck: Neck: supple and no JVD Carotids: no bruits Resp: Auscultation: clear to auscultation bilaterally and lung sounds not diminished Other: No chest wall tenderness Cardio: Rate: regular rate Rhythm: regular rhythm Heart sounds:
[2024-07-25 13:22] LABS: LDL Cholesterol Direct 86 mg/dL
--- NOTE | 2024-07-25 14:50 | PM.DS ---
DS: Admitting Diagnosis Discharge Date 07/25/2024 Admitting Diagnosis chest pain DS: Discharge Diagnosis Discharge Diagnosis (1) Chest pain: Code(s): R07.9 - Chest pain, unspecified Status: Acute (2) Elevated troponin: Code(s): R79.89 - Other specified abnormal findings of blood chemistry Status: Acute (3) UTI (urinary tract infection): Code(s): N39.0 - Urinary tract infection, site not specified Status: Acute (4) Thrombocytosis: Code(s): D75.839 - Thrombocytosis, unspecified Status: Acute DS: Summary Hospital Course Hospital Course: this is a 34-year-old female who presented with complaints of chest pain. Two episodes yesterday sharp retrosternal radiating to the shoulder and neck. No precipitating or relieving factor. No prior episodes. She is 2 weeks. No further recurrence of chest pain. She was admitted for observation. Initial troponin was negative. EKG unremarkable. Serial troponin which was trending upward minimally. heparin drip was started. CTA was performed which was negative for PE. Cardiology was consulted For possible ACS. However no dynamic EKG changes suspected likely demand ischemia. TTE was performed to rule out stress-induced cardiomyopathy. Echo was unremarkable. She will be followed up as an outpatient basis. Okay to discharge per Cardiology. CTA showed 6 mm left lower lobe nodule which needs to be followed up with 6-10 mom low-dose noncontrast chest CT. He did have evidence of UTI on admission and will be discharged on oral antibiotics cephalexin. Time Spent with Patient Time attestation: Total time spent providing and/or coordinating discharge services: 35 minutes Exam Narrative: GENERAL: Well-appearing, well-nourished, and in no acute distress. HEAD: Normocephalic, atraumatic. EYES: PERRLA and EOMI. ENT: Nares clear, no rhinorrhea or epistaxis. Mucous membranes moist. NECK: Supple. CHEST: Clear to auscultation. No respiratory distress. HEART: Regular rate and rhythm. No murmur heard. Normal peripheral pulses. ABDOMEN: Soft, nontender, nondistended, normal active bowel sounds. EXTREMITIES: Normal range of motion. Trace edema. SKIN: Warm, dry, no rash. NEURO: No focal deficits. Alert and oriented x3. PSYCH: Normal mood and affect. DS: Data Data Completed and Pending Completed studies during hospitalization: Exam Type: CA echo doppler color flow Study Info Indications - chest pain, elevated troponin Complete two-dimensional, color flow and Doppler transthoracic echocardiogram is performed. Summary 1. Complete two-dimensional, color flow and Doppler transthoracic echocardiogram is performed. 2. Left ventricular chamber dimension is normal. 3. Left ventricular systolic function is normal, estimated at 65-70%. 4. The left ventricular diastolic function is normal. 5. Right ventricular chamber dimension is normal. 6. Right ventricular systolic function is normal. 7. No significant valvular abnormalities. Left Ventricle Left ventricular chamber dimension is normal. Left ventricular systolic function is normal, estimated at 65-70%. There is no increased left ventricular wall thickness. Left ventricular septal wall motion is normal. The left ventricular diastolic function is normal. Right Ventricle Right ventricular chamber dimension is normal. Right ventricular systolic function is normal. Left Atria Left atrial chamber dimension is normal. Right Atria Right atrial chamber dimension is normal. Aortic Valve The aortic valve is trileaflet. There is no aortic valve sclerosis. There is no aortic valve stenosis. There is no aortic valve regurgitation. Pulmonic Valve The pulmonic valve is normal. There is no pulmonic valve stenosis. There is no pulmonic regurgitation. Mitral Valve The mitral valve has nor
== END 2024-07-25 17:48 | disposition home or self-care (01) ==
LOC: ANHED 07-25 04:12 → ANHIMU 07-25 14:50
PROVIDERS: Admitting Provider Internal Medicine; Emergency Provider Emergency Medicine; PCP Internal Medicine; Visit Provider Internal Medicine
DX: O99.893 Other specified diseases and conditions complicating puerperium (principal); R07.2 Precordial pain; D75.839 Thrombocytosis, unspecified; R79.89 Other specified abnormal findings of blood chemistry; N39.0 Urinary tract infection, site not specified; Z79.899 Other long term (current) drug therapy; Z20.822 Contact with and (suspected) exposure to COVID-19
CPT/HCPCS: 36415; 36600; 71046; 71275; 80053; 80061; 81001; 82805; 83690; 83880; 84484; 84550; 85018; 85025; 85380; 85610; 85730; 87086; 87637; 93005; 93306; 96365; 96366; 96375; 99285; G0378; G0379; J0696; J1644; Q9967

== ENCOUNTER 2025-02-05 15:09 | Emergency (ER) | payer OTHER, SELFPAY ==
--- NOTE | ~2025-02-05 | XR_ITS ---
EXAMINATION: XR chest 2V 02/05/2025 15:36 INDICATION: Chest pain and congestion PROCEDURE: 2 view chest COMPARISON: No prior studies for comparison. FINDINGS: The lungs are clear. The cardiomediastinal silhouette is within normal limits. There are no pleural effusions. There is no pneumothorax suspected. IMPRESSION: 1: NO ACUTE CARDIOPULMONARY DISEASE. Reviewed, dictated and finalized at location B.
--- OUTSIDE RECORDS SUMMARY | 2025-02-05 15:11 | XMS_ITS | Clinical Summary ---
Author Organization [facility] at the [facility] Address [address] [place] [address] Care Team Providers Care Senior Product Development Engineer Name Role Phone Ruddy Jones MD Primary Care Provider [phone] Allergies No known active allergies Medications multivitamin capsule Take 1 capsule by mouth daily Active ibuprofen (ADVIL,MOTRIN) 600 mg tablet Take 1 tablet (600 mg total) by mouth every 6 (six) hours as needed for pain 30 tablet Active Additional Information Patient not taking.Reported on 02/02/2025 Active Problems Problem Noted Date Diagnosed Date Chest pain 10/23/2024 39 weeks gestation of 07/10/2024 Dizziness, nonspecific 06/27/2024 Decreased movements in third trimester 04/2024 Shortness of breath during 06/27/2024 Low back pain during in third trimeste r 06/27/2024 36 weeks gestation of 06/24/2024 Nonintractable headache 07/25/2023 Encounters Date Type Department Care Team Description 02/02/2025 11:30 AM CDT Ancillary Procedure [facility] Cardiology [address] [facility] [address] [place] [address] Palpitations 02/02/2025 10:30 AM CDT Office Visit [facility] Cardiology [address] [facility] [address] [place] [address] Betty Bishop NP Need for lipid screening (Primary Dx); Other chest pain; Palpitations; Shortness of breath 11/16/2024 Telephone [facility] Medical [facility] Cardiology [facility] [facility] [address], [place] [address] Jc Lazaro MD from Last 3 Months Immunizations Immunization Administration Dates Next Due Varicella 07/12/2024 Medical History Medical History Date Comments Cardiomegaly Family History Relation Name Status Comments Father Alive Mother Alive Social History Tobacco Use Types Packs/Day Years Used Date Smoking Tobacco: Never Smokeless Tobacco: Never Tobacco Cessation:Counseling Given: No Social Connection and Isolat ion Panel [NHANES] Answer Date Recorded In a typical week, how many times do you talk on the phone with family, friends, or neighbors? More than three times a week 06/29/2024 How often do you get togethe r with friends or relatives? More than three times a week 06/29/2024 How often do you attend chur ch or pentecostal services? More than 4 times per year 06/29/2024 Do you belong to any clubs o r organizations such as confucianist groups, unions, fraternal or athletic groups, or school groups? Yes 06/29/2024 How often do you attend meet ings of the clubs or organizations you belong to? Never 06/29/2024 Are you , , di vorced, , never , or living with a partner? 06/29/2024 AUDIT-C Answer Date Recorded Q1: How often do you have a drink containing alcohol? Never 07/10/2024 Q2: How many drinks containi ng alcohol do you have on a typical day when you are drinking? Patient does not drink Q3: How often do you have si x or more drinks on one occasion? Never 07/10/2024 Overall Financial Resource Strain (CARDIA) Answe r Date Recorded How hard is it for you to pa y for the very basics like food, housing, medical care, and heating? Not hard at all 07/10/2024 PHQ-2 Answer Date Recorded PHQ-2 Total Score (If total score is 3 or more points, staff should administer the PHQ-9) 0 07/10/2024 [facility] of Occupat ional Health - Occupational Stress Questionnaire Answer Date Recorded Do you feel stress - tense, restless, nervous, or anxious, or unable to sleep at night because your mind is troubled all the time - these days? Not at all 07/10/2024 Exercise Vital Sign Answer Date Recorde d On average, how many days pe r week do you engage in moderate to strenuous exercise (like a brisk walk)? 7 days 07/10/2024 On average, how many minutes do you engage in exercise at this level? 30 min 07/10/2024 Hunger Vital Sign Answer Date Recorded Within the past 12 months, y ou worried that your food would run out before you got the money to buy more. Never true 07/10/20 24 Within the past 12 months, t he food you bought just didn't last and you didn't have money to get more. Never true 07/10/2024 PRAPARE - Transportation Answer Date Re corded In the past 12 months, has l ack of transportation kept you from medical appointments or from getting medications? No 06/22 In the past 12 months, has l ack of transportation kept you from meetings, work, or from getting things needed for daily living? No 07/10/2024 PHQ-9 Answer Date Recorded PHQ-9 Total Score 0 06/23/2024 Housing Stability Vital Sign Answer Jozef e Recorded In the last 12 months, was t here a time when you were not able to pay the mortgage or rent on time? No 07/10/2024 In the past 12 months, how m any times have you moved where you were living? 0 07/10/2024 At any time in the past 12 m [facility], were you homeless or living in a retirement (including now)? No 07/10/2024 Personal Safety Answer Date Recorded Have you ever been in or are you currently in a harmful physical or emotional relationship or is someone making you feel afraid or unsafe? Denies 07/10/2024 Comments Unknown Sex and Gender Information Value Date Recorded Sex Assigned at Not on file Legal Sex Female 7:25 PM CDT Gender Identity Not on file Sexual Orientation Not on file Obstetrics History Para Term AB IAB SAB Ectopic Multiple Livin g Live Births 3 3 3 0 3 3 Date Outcome GA Total Labor Labor/2nd/3rd Weight Sex Type Anes PTL Abena A1 A5 Name Clin 2017 Term 38w 0d Vag-Sp ont Livin g 2020 Term 38w 0d 3.005 kg (6 lb 10 oz) M Vag-Sp ont Livin g Complications:None 2023 Term 39w 1d 2h 13m 1h 33m/0h 33m/0h 07m 3.481 kg (7 lb 10.8 oz) F Vagina l Epidur al N Livin g 8 9 Yosol annie Garcia se, Cristhian Lee MD Complications:None Delivery Location:[facility] ([facility]) Last Filed Vital Signs Vital Sign Reading Time Taken Comments Blood Pressure 116/62 02/02/2025 11:44 AM CDT Pulse 71 02/02/2025 11:44 AM CDT Temperature 36.5 C (97.7 F) 07/12/2024 12:00 AM CDT Respiratory Rate 15 07/12/2024 12:00 AM CDT Oxygen Saturation 99% 02/02/2025 11:44 AM CDT Inhaled Oxygen Concentration - - Weight 95.9 kg (211 lb 8 oz) 02/02/2025 11:44 AM CDT Height 162.6 cm (5' 4 ) 02/02/2025 11:44 AM CDT Body Mass Index 36.3 02/02/2025 11:44 AM CDT Plan of Treatment Health Maintenance Due Date Last Done Comments Cervical Cancer Screening 1989 Hepatitis C Screening 1989 DTaP/Tdap/Td Vaccine (1 - Tdap) 01/08/2000 Hepatitis B Screening 2007 Regular Well Visit/Exam 18-64 2007 Varicella Vaccines (2 of 2 - 13+ 2-dose series) 08/09/2024 07/12/2024 Influenza Vaccine (Season Ended) 2025 Depression Screening 07/04/2025 07/04/2024, 06/27/2024, 05/25/2024, Additional history exists HPV Vaccines Aged Out No longer eligi ble based on patient's age to complete this topic Pneumococcal vaccine <65 Aged Out No longer eligible based on patient's age to complete this topic Procedures Procedure Name Priority Date/Time Associated Diagnosis Comments POCT LIPID PANEL Routine 02/02/2025 3:20 PM CDT Need for lipid screening ELECTROCARDIOGRAM REPORT Routine 025 3:10 PM CDT Other chest pain from Last 3 Months Results * POCT lipid panel (02/02/2025 3:20 PM CDT) Cholesterol, POC 162 mg/dL Comment:GLU = 86 HDL, POC 61 mg/dL Triglycerides, POC 80 mg/dL LDL Cholesterol POC 86 mg/dL Chol/HDL Ratio, POC 1.4 Non-HDL Cholesterol, POC 101 mg/dL Cholesterol Total, POC 162 mg/dL Capillary blood 02/02/2025 3 :20 PM CDT Betty Bishop NP POINT OF CARE TEST ORDERABLE S Final Result * Electrocardiogram Report (02/02/2025 3:10 PM CDT) Betty Bishop NP ECG ORDERABLES Final Result from Last [address] [place] [address] [facility] COUNTS INCLUDE 234 BEDS AT THE [facility] [employer] [facility] Advance Directives For more information, please contact: [phone] * Full Code (Latest Code Status on File) Date Activated Date Inactivated Comments 07/10/2024 10:27 AM 07/12/2024 5:07 PM * Full Code Date Activated Date Inactivated Comments 07/10/2024 6:00 AM 07/10/2024 10:27 AM Full CPR in case of cardiopulmonary arrest * Full Code Date Activated Date Inactivated Comments 06/24/2024 1:46 AM 06/24/2024 6:32 PM Full CPR in ca se of cardiopulmonary arrest Care Teams Senior Product Development Engineer Relationship Specialty Start Date End Date Ruddy Jones MD [address] [place] [address] PCP - General Internal Medicine 04/10/23
--- OUTSIDE RECORDS SUMMARY | 2025-02-05 15:11 | XMS_ITS | Referral Summary ---
Author Organization [facility] at the [facility] Address [address] [place] [address] Care Team Providers Care Computer Installer Name Role Phone Ruddy Jones MD Primary Care Provider [phone] Encounters Date Type Department Care Team Description 02/02/2025 11:30 AM CDT Ancillary Procedure [facility] Cardiology [address] [place] [address] [place] [phone] Palpitations 02/02/2025 10:30 AM CDT Office Visit [facility] Cardiology [address] [place] [address] [place] [phone] Betty Bishop NP Need for lipid screening (Primary Dx); Other chest pain; Palpitations; Shortness of breath 11/16/2024 Telephone [facility] Cardiology [address] [facility] [address] [place] [phone] Jc Lazaro MD from Last 3 Months Allergies No known active allergies Medications multivitamin [...] weeks gestation of 06/24/2024 Nonintractable headache 07/25/2023 Immunizations Immunization Administration Dates Next Due Varicella 07/12/2024 Social History Tobacco Use Types Packs/Day Years [...] 06/29/2024 How often do you attend chur or shinto services? More than 4 times per year 06/29/2024 Do you belong to any clubs o r organizations such as sabianism groups, unions, fraternal or athletic groups, or [...] staff should administer the PHQ-9) 0 07/10/2024 [facility] [place] of Occupat ional Health - Occupational Stress [...] any time in the past 12 m [facility], were you homeless or living in a fdc (including now)? No 07/10/2024 Personal Safety Answer [...] on file Sexual Orientation Not on file Last Filed Vital Signs Vital Sign Reading [...] 02/02/2025 11:44 AM CDT Plan of Treatment Not on file Procedures Procedure Name Priority Date/Time Associated Diagnosis [...] Last [address] [place] [address] [facility] [facility] [employer] [facility] Advance Directives For more information, please contact: [phone] * Full Code (Latest Code Status on [...] ca se of cardiopulmonary arrest Care Teams Computer Installer Relationship Specialty Start Date End Date Ruddy Jones MD [address] [place] [address] PCP - General Internal Medicine 04/10/23
--- OUTSIDE RECORDS SUMMARY | 2025-02-05 15:12 | XMS_ITS | Clinical Summary ---
Author Organization [employer] [email or web address] Address [address] [facility] [place] [address] Care Team Providers Care Rail Tractor Operator Name Role Phone Unavailable Primary Care Provider Unavailabl e Source Comments [email or web address],non-owned Affiliates and Associated Physician Practices is amultiple site organization consisting of ambulatory clinics and hospital sitesin [place], [place], [place] and [place]. This disclosure is being madepursuant to the Care Everywhere program and may not contain all information available regarding this patient. Last updated 18.Student Designed Allergies No known active allergies Medications * Be aware that medications may not be up to date on this document. Alwaysverify current medications with the patient. Vit-Fe Fumarate-FA ( 1 PLUS 1 PO) Active Active Problems Problem Noted Date Diagnosed Date Polyhydramnios in morales in third t rimester 03/16/2021 complicated by fet al cerebral ventriculomegaly, single gestation 02/13/2021 Overview (03/06/2021): Rubella IGM: NEGATIVE Toxoplasma IGG Antibody Quant: <3; Toxo IGG Anti Qualitative: Negative Toxo IGM Quant: <0.2 ; Toxo IGM Qualitative: Negative HSV 1 & 2 screen IGM: Negative HSV 1 IGG: Positive, will need Valtrex @ 36weeks. (Primary OB aware) HSV 2 IGG, Quant: <0.2/Negative Varicella IGM: < or = 0.90 ; varicella IGG: Positive CMV IG.9/ Positive ; CMV IGM: <0.2/Negative Parvo IGG:Positive; Parvo IGM: Negative Encounter for anatomic survey 02/13/2021 Resolved Problems Problem Noted Date Diagnosed Date Resolved Date Depression screening-Initial 03/16/2021 03/16/2021 06/07/2021 Overview (03/16/2021): 03/16/2021 Ysabel Roy was screened for depression using the [place] Depression Scale (EPDS) at her [facility] initial evaluation on 03/16/2021. Her initial score at baseline was 1. Based off of her score of 1, Ysabel does not warrant follow up. Patient will continue to be screened throughout , at intervals no closer than two weeks, for continued surveillance and early identification of depression until delivery. Patient denies mental health history. CUSTODIAL: abnormality in pr egnancy, ventriculomegaly 02/16/2021 06/07/2021 Overview (03/17/2021): Images from the original note were not included. CUSTODIAL PATIENT--PLEASE CALL [phone] (ex 2) IF TRIAGED OR ADMITTED Care Provider: Dr. Moeller [facility] consultants involved: Nurse coordinator-Mayra Mcdonald; [facility]-Dr. Childers Diagnosis: Previous concern for ventriculomegaly; lateral ventricles of the brain measure within normal limits on ultrasound from 03/16/2021 Planned surveillance: Continue routine OB care; ultrasound in [facility] weeks at [facility] for growth and fluid check; Released from CUSTODIAL after initial visit on 03/16/2021 Delivery location: [facility] Delivery mode: Per usual OB indications Desired Delivery GA: No indication for delivery before 39 weeks at this time follow up: Routine care Client Reporting Associate: Undecided Autopsy indicated: Genetics note: Low risk NIPT (predicted male) 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 See Images or Cardiac under Chart Review for US/ ECHO/ MRI reports. Social History Tobacco Use Types Packs/Day Years Used Date Smoking Tobacco: Never Assessed Comments No Sex and Gender Information Value Date Recorded Sex Assigned at Not on file Legal Sex Female 8:22 AM CDT Gender Identity Not on file Sexual Orientation Not on file Last Filed Vital Signs Vital Sign Reading Time Taken Comments Blood Pressure 120/70 03/16/2021 3:31 PM CDT Pulse 108 03/16/2021 3:31 PM CDT Temperature - - Respiratory Rate - - Oxygen Saturation - - Inhaled Oxygen Concentration - - Weight - - Height - - Body Mass Index - - Plan of Treatment Health Maintenance Due Date Last Done Comments PAP SMEAR 1989 HEPATITIS C SCREENING 01/03/2007 DTAP/TDAP/TD VACCINES (1 - Tdap) 01/08/2008 HEPATITIS B VACCINE (1 of 3 - 19+ 3-dose series) 01/08/2008 COVID-19 VACCINE (1 - 2023-2 5 season) 2024 DEPRESSION SCREENING 10/21/2024 INFLUENZA VACCINE (Season Ended) 2025 ZOSTER VACCINE (1 of 2) 2039 HIV SCREENING Completed 03/15/2021 HIB VACCINE Aged Out No longer eligi ble based on patient's age to complete this topic HPV VACCINE Aged Out No longer eligi ble based on patient's age to complete this topic MENINGOCOCCAL (Group B) VACC INE SHARED DECISION-MAKING Aged Out No longer eligibl e based on patient's age to complete this topic MENINGOCOCCAL GROUPS A/C/Y/W VACCINE Aged Out No longer eligible b ased on patient's age to complete this topic PNEUMOCOCCAL VACCINE Aged Out No long er eligible based on patient's age to complete this topic [id number]
--- OUTSIDE RECORDS SUMMARY | 2025-02-05 15:12 | XMS_ITS | Data Portability ---
[facility] Organization [facility] Address [address] [place] [address] Care Team Providers Care Traffic Controller Cable Name Role Phone NAOMY DARCIE Paper Stripper Assessment Encounter Date Assessment Date Assessment LastModified by Organization Details LastModified Time 08/31/2024 08/31/2024 Follow-up preferably with Dr. Gold in 2 months or as needed [email or web address] Not available 09/05/2024 18:53:34 Plan of Treatment Reminders Order Date Submit Date Provider Last Modified By Organization Details Last Modified Time Details Appointments None recorded. Lab urinalysi s, dipstick 2023 024 [email or web address] In-Office Order, Internal Use Only DO Not Attach Compendium DO Not Attach Compendium, Do Not Delete/merge, [id number] 07:57:37 HbA1c (hemoglob in A1c), blood 2023 024 [facility], [address], [place] [address], [place], [address], 4 15:38:12 urinalysi s, dipstick 2023 024 [email or web address] In-Office Order, Internal Use Only DO Not Attach Compendium DO Not Attach Compendium, Do Not Delete/merge, [id number] 18:27:27 urinalysi s, dipstick 2023 024 [email or web address] In-Office Order, Internal Use Only DO Not Attach Compendium DO Not Attach Compendium, Do Not Delete/merge, [id number] 08:19:57 culture, urine 2023 024 [place], [address], [place] [address], [place], [address], 4 06:23:22 urinalysi s, dipstick 2023 024 [email or web address] In-Office Order, Internal Use Only DO Not Attach Compendium DO Not Attach Compendium, Do Not Delete/merge, [id number] 4 12:27:04 Referral None recorded. Procedures None recorded. Surgeries None recorded. Imaging None recorded. Medication Orders None recorded. Patient TargetsNo targets recorded. Patient Instructions Encounter Date Encounter Id Patient Instructions Last Modified By Organization Details Last Modified Time 07/02/2024 [id number] Attending Physician Attestation S: 34 yo F, at 38w0d. Has had multiple triage visits. Scheduled for eIOL at 39w0d. Neg OB ROS except B-H. O: BP 111/73. FH 40, FHR 150. Udip small leuk, neg nitrite. A/P: Routine OB care - Scheduled for eIOL on 07/10/24. I did not personally see or examine the patient with the resident. I was physically present to provide indirect supervision through entire encounter. I have reviewed the documentation and agree with the history, physical findings, work-up, and medical decision making as recorded. Modesta Turner MD [email or web address] Not available 07/02/2024 12:40:30 07/09/2024 [id number] After Age 34: Care Instructions [email or web address] Not available 07/10/2024 08:19:50 Attending Physician Attestation I did not personally see or examine the patient with the resident. I was physically present to provide indirect supervision through entire encounter. I have reviewed the documentation and agree with the history, physical findings, work-up, and medical decision making as recorded. Fred Nice MD [email or web address] Not available 07/09/2024 13:06:57 07/28/2024 [id number] Care at Home With Your Baby: Care Instructions [email or web address] Not available 07/28/2024 18:27:26 When You Want to Lose Weight: Care Instructions kanota Not available 07/28/2024 18:27:26 painful urinatio n (dysuria): care instructions [email or web address] Not available 07/28/2024 18:27:26 I saw the patien t with the resident. I agree with the resident's assessment and plan as documented Osmany Guillen MD [email or web address] Not available 08/06/2024 22:09:55 08/03/2024 [id number] On the date of this encounter, I was immediately available to assist the resident/fellow in the care of the patient, and have reviewed and agree with the resident s findings and plan of care. MD Dipesh [email or web address] Not available 08/04/2024 01:01:10 08/31/2024 [id number] Attending Physician Attestation I did not personally see or examine the patient with the resident. I was physically present to provide indirect supervision through entire encounter. I have reviewed the documentation and agree with the history, physical findings, work-up, and medical decision making as recorded. Fred Nice MD [email or web address] Not available 09/05/2024 18:53:47 Reason for Referral None Reported. Results Created Date Observation Date Name Description Value Unit Range Abnormal Flag Note LastModifiedBy Organization Detail LastModifiedTime 06/09/20 24 06/09/2024 urina lysis , dipst ick Leukocytes Small Not Available In-Offi ce Order Internal Use Only DO Not Attach Compendium DO Not Attach Compendium, Do Not Delete/merge, [id number] 06/09/2024 11:50:33 06/09/2006/09/2024 urina lysis , dipst ick Nitrite negati ve Not Available In-Office Order Internal Use Only DO Not Attach Compendium DO Not Attach Compendium, Do Not Delete/merge, [id number] 06/09/2024 11:50:33 06/09/20 24 06/09/2024 urina lysis , dipst ick Urobilinogen .2 Not Available In-Of fice Order Internal Use Only DO Not Attach Compendium DO Not Attach Compendium, Do Not Delete/merge, [id number] 06/09/2024 11:50:33 06/09/20 24 06/09/2024 urina lysis , dipst ick Protein Negati ve Not Available In-Office Order Internal Use Only DO Not Attach Compendium DO Not Attach Compendium, Do Not Delete/merge, 06/09/2024 11:50:33 06/09/20 24 06/09/2024 urina lysis , dipst ick pH 7.5 Not Available In-Office Order Internal Use Only DO Not Attach Compendium DO Not Attach Compendium, Do Not Delete/merge, 06/09/2024 11:50:33 06/09/20 24 06/09/2024 urina lysis , dipst ick Blood Non-He molyze d: Trace Not Available In-Office Order Internal Use Only DO Not Attach Compendium DO Not Attach Compendium, Do Not Delete/merge, 06/09/2024 11:50:33 06/09/20 24 06/09/2024 urina lysis , dipst ick Specific Baraga 1.020 Not Available In-Off ice Order Internal Use Only DO Not Attach Compendium DO Not Attach Compendium, Do Not Delete/merge, 06/09/2024 11:50:33 06/09/20 24 06/09/2024 urina lysis , dipst ick Ketone Negati ve Not Available In-Office Order Internal Use Only DO Not Attach Compendium DO Not Attach Compendium, Do Not Delete/merge, 06/09/2024 11:50:33 06/09/20 24 06/09/2024 urina lysis , dipst ick Bilirubin Negati ve Not Available In-Office Order Internal Use Only DO Not Attach Compendium DO Not Attach Compendium, Do Not Delete/merge, 06/09/2024 11:50:33 06/09/20 24 06/09/2024 urina lysis , dipst ick Glucose Negati ve Not Available In-Office Order Internal Use Only DO Not Attach Compendium DO Not Attach Compendium, Do Not Delete/merge, 06/09/2024 11:50:33 06/09/20 24 06/09/2024 urina lysis , dipst ick Appearance Clear Not Available In-Offi ce Order Internal Use Only DO Not Attach Compendium DO Not Attach Compendium, Do Not Delete/merge, 06/09/2024 11:50:33 06/09/20 24 06/09/2024 urina lysis , dipst ick Color Yellow Not Available In-Office Order Internal Use Only DO Not Attach Compendium DO Not Attach Compendium, Do Not Delete/merge, 06/09/2024 11:50:33 06/25/20 24 06/25/2024 urina lysis , dipst ick Leukocytes Small Not Available In-Offi ce Order Internal Use Only DO Not Attach Compendium DO Not Attach Compendium, Do Not Delete/merge, 06/25/2024 15:06:14 06/25/20 24 06/25/2024 urina lysis , dipst ick Nitrite negati ve Not Available In-Office Order Internal Use Only DO Not Attach Compendium DO Not Attach Compendium, Do Not Delete/merge, 06/25/2024 15:06:14 06/25/20 24 06/25/2024 urina lysis , dipst ick Urobilinogen .2 Not Available In-Of fice Order Internal Use Only DO Not Attach Compendium DO Not Attach Compendium, Do Not Delete/merge, 06/25/2024 15:06:14 06/25/20 24 06/25/2024 urina lysis , dipst ick Protein Negati ve Not Available In-Office Order Internal Use Only DO Not Attach Compendium DO Not Attach Compendium, Do Not Delete/merge, 06/25/2024 15:06:14 06/25/20 24 06/25/2024 urina lysis , dipst ick pH 7.5 Not Available In-Office Order Internal Use Only DO Not Attach Compendium DO Not Attach Compendium, Do Not Delete/merge, 06/25/2024 15:06:14 06/25/20 24 06/25/2024 urina lysis , dipst ick Blood Negati ve Not Available In-Office Order Internal Use Only DO Not Attach Compendium DO Not Attach Compendium, Do Not Delete/merge, 06/25/2024 15:06:14 06/25/20 24 06/25/2024 urina lysis , dipst ick Specific [place] 1.015 Not Available In-Off ice Order Internal Use Only DO Not Attach Compendium DO Not Attach Compendium, Do Not Delete/merge, [id number] 06/25/2024 15:06:14 06/25/20 24 06/25/2024 urina lysis , dipst ick Ketone Negati ve Not Available In-Office Order Internal Use Only DO Not Attach Compendium DO Not Attach Compendium, Do Not Delete/merge, [id number] 06/25/2024 15:06:14 06/25/20 24 06/25/2024 urina lysis , dipst ick Bilirubin Negati ve Not Available In-Office Order Internal Use Only DO Not Attach Compendium DO Not Attach Compendium, Do Not Delete/merge, [id number] 06/25/2024 15:06:14 06/25/20 24 06/25/2024 urina lysis , dipst ick Glucose Negati ve Not Available In-Office Order Internal Use Only DO Not Attach Compendium DO Not Attach Compendium, Do Not Delete/merge, [id number] 06/25/2024 15:06:14 06/26/20 24 06/28/2024 STREP GP B DANII strep gp B DANII NEGATI VE negati ve Cente rs for Disea se Contr ol and Preve ntion (CDC) and Ameri can Congr ess of Obste trici ans and Gynec ologi sts (ACOG ) guide lines for preve ntion of perin atal group B strep tococ kusum (GBS) disea se speci fy co-co llect ion of a vagin al and recta l swab speci men to maxim ize sensi tivit y of GBS detec tion. Per the CDC and ACOG, swabb ing both the lower vagin a and rectu m subst antia lly incre ases the yield of detec tion azeem red with sampl ing the vagin a alone . Penic illin G, ampic illin , or cefaz alethea are indic ated for intra partu m proph ylaxi s of perin atal GBS colon izati on. Refle x susce ptibi lity testi ng shoul d be perfo rmed prior to use of clind amyci n only on GBS isola bibiana from penic illin -luis rgic women who are consi dered a high risk for anaph ylaxi s. Treat ment with vanco mycin witho ut addit ional chico fraga is warra nted if resis tance to clind amyci n is noted . Not Available [facility] ([facility]) [address] [facility], [place], [address], 06/28/2024 13:07:33 07/02/20 24 07/03/2024 URINE CULTU RE, ROUTI NE urine culture, routine FINAL REPORT Not Available [facility] ([facility]) [address], [place], [address], 07/04/2024 06:23:22 07/02/20 24 07/03/2024 URINE CULTU RE, ROUTI NE result 1 COMMEN T Mixed uroge nital doc Less than 10,00 0 colon ies/m L Not Available [facility] ([facility]) [address] [facility], [place], [address], 07/04/2024 06:23:22 07/02/20 24 07/02/2024 urina lysis , dipst ick Leukocytes Large Not Available In-Offi ce Order Internal Use Only DO Not Attach Compendium DO Not Attach Compendium, Do Not Delete/merge, [id number] 07/02/2024 12:08:22 07/02/20 24 07/02/2024 urina lysis , dipst ick Nitrite negati ve Not Available In-Office Order Internal Use Only DO Not Attach Compendium DO Not Attach Compendium, Do Not Delete/merge, [id number] 07/02/2024 12:08:22 07/02/20 24 07/02/2024 urina lysis , dipst ick Urobilinogen .2 Not Available In-Of fice Order Internal Use Only DO Not Attach Compendium DO Not Attach Compendium, Do Not Delete/merge, [id number] 07/02/2024 12:08:22 07/02/2007/02/2024 urina lysis , dipst ick Protein Negati ve Not Available In-Office Order Internal Use Only DO Not Attach Compendium DO Not Attach Compendium, Do Not Delete/merge, 07/02/2024 12:08:22 07/02/20 24 07/02/2024 urina lysis , dipst ick pH 7.0 Not Available In-Office Order Internal Use Only DO Not Attach Compendium DO Not Attach Compendium, Do Not Delete/merge, 07/02/2024 12:08:22 07/02/20 24 07/02/2024 urina lysis , dipst ick Blood Negati ve Not Available In-Office Order Internal Use Only DO Not Attach Compendium DO Not Attach Compendium, Do Not Delete/merge, 07/02/2024 12:08:22 07/02/20 24 07/02/2024 urina lysis , dipst ick Specific Bar[place] 1.020 Not Available In-Off ice Order Internal Use Only DO Not Attach Compendium DO Not Attach Compendium, Do Not Delete/merge, 07/02/2024 12:08:22 07/02/20 24 07/02/2024 urina lysis , dipst ick Ketone Negati ve Not Available In-Office Order Internal Use Only DO Not Attach Compendium DO Not Attach Compendium, Do Not Delete/merge, 07/02/2024 12:08:22 07/02/20 24 07/02/2024 urina lysis , dipst ick Bilirubin Negati ve Not Available In-Office Order Internal Use Only DO Not Attach Compendium DO Not Attach Compendium, Do Not Delete/merge, 07/02/2024 12:08:22 07/02/20 24 07/02/2024 urina lysis , dipst ick Glucose Negati ve Not Available In-Office Order Internal Use Only DO Not Attach Compendium DO Not Attach Compendium, Do Not Delete/merge, 07/02/2024 12:08:22 07/02/20 24 07/02/2024 urina lysis , dipst ick Appearance Slight ly Cloudy Not Available In-Office Order Internal Use Only DO Not Attach Compendium DO Not Attach Compendium, Do Not Delete/merge, 07/02/2024 12:08:22 07/02/20 24 07/02/2024 urina lysis , dipst ick Color Yellow Not Available In-Office Order Internal Use Only DO Not Attach Compendium DO Not Attach Compendium, Do Not Delete/merge, 07/02/2024 12:08:22 07/09/20 24 07/09/2024 urina lysis , dipst ick Leukocytes Modera te Not Available In-Office Order Internal Use Only DO Not Attach Compendium DO Not Attach Compendium, Do Not Delete/merge, 07/09/2024 12:01:25 07/09/20 24 07/09/2024 urina lysis , dipst ick Nitrite negati ve Not Available In-Office Order Internal Use Only DO Not Attach Compendium DO Not Attach Compendium, Do Not Delete/merge, 07/09/2024 12:01:07/09/20 24 07/09/2024 urina lysis , dipst ick Urobilinogen .2 Not Available In-Of fice Order Internal Use Only DO Not Attach Compendium DO Not Attach Compendium, Do Not Delete/merge, 07/09/2024 12:01:07/09/20 24 07/09/2024 urina lysis , dipst ick Protein Negati ve Not Available In-Office Order Internal Use Only DO Not Attach Compendium DO Not Attach Compendium, Do Not Delete/merge, 07/09/2024 12:01:25 07/09/20 24 07/09/2024 urina lysis , dipst ick pH 7.5 Not Available In-Office Order Internal Use Only DO Not Attach Compendium DO Not Attach Compendium, Do Not Delete/merge, 07/09/2024 12:01:25 07/09/20 24 07/09/2024 urina lysis , dipst ick Blood Negati ve Not Available In-Office Order Internal Use Only DO Not Attach Compendium DO Not Attach Compendium, Do Not Delete/merge, 07/09/2024 12:01:25 07/09/20 24 07/09/2024 urina lysis , dipst ick Specific Bar[place] 1.020 Not Available In-Off ice Order Internal Use Only DO Not Attach Compendium DO Not Attach Compendium, Do Not Delete/merge, [id number] 07/09/2024 12:01:25 07/09/20 24 07/09/2024 urina lysis , dipst ick Ketone Negati ve Not Available In-Office Order Internal Use Only DO Not Attach Compendium DO Not Attach Compendium, Do Not Delete/merge, 07/09/2024 12:01:25 07/09/20 24 07/09/2024 urina lysis , dipst ick Bilirubin Negati ve Not Available In-Office Order Internal Use Only DO Not Attach Compendium DO Not Attach Compendium, Do Not Delete/merge, 07/09/2024 12:01:25 07/09/20 24 07/09/2024 urina lysis , dipst ick Glucose Negati ve Not Available In-Office Order Internal Use Only DO Not Attach Compendium DO Not Attach Compendium, Do Not Delete/merge, 07/09/2024 12:01:25 07/28/20 24 07/28/2024 urina lysis , dipst ick Leukocytes Trace Not Available In-Offi ce Order Internal Use Only DO Not Attach Compendium DO Not Attach Compendium, Do Not Delete/merge, 07/28/2024 17:53:31 07/28/20 24 07/28/2024 urina lysis , dipst ick Nitrite negati ve Not Available In-Office Order Internal Use Only DO Not Attach Compendium DO Not Attach Compendium, Do Not Delete/merge, [id number] 07/28/2024 17:53:31 07/28/20 24 07/28/2024 urina lysis , dipst ick Urobilinogen .2 Not Available In-Of fice Order Internal Use Only DO Not Attach Compendium DO Not Attach Compendium, Do Not Delete/merge, 07/28/2024 17:53:31 07/28/20 24 07/28/2024 urina lysis , dipst ick Protein Trace Not Available In-Office Order Internal Use Only DO Not Attach Compendium DO Not Attach Compendium, Do Not Delete/merge, [id number] 07/28/2024 17:53:31 07/28/2007/28/2024 urina lysis , dipst ick pH 6.5 Not Available In-Office Order Internal Use Only DO Not Attach Compendium DO Not Attach Compendium, Do Not Delete/merge, [id number] 07/28/2024 17:53:31 07/28/2007/28/2024 urina lysis , dipst ick Blood Modera te Not Available In-Office Order Internal Use Only DO Not Attach Compendium DO Not Attach Compendium, Do Not Delete/merge, [id number] 07/28/2024 17:53:31 07/28/2007/28/2024 urina lysis , dipst ick Specific [place] 1.020 Not Available In-Off ice Order Internal Use Only DO Not Attach Compendium DO Not Attach Compendium, Do Not Delete/merge, [id number] 07/28/2024 17:53:31 07/28/20 24 07/28/2024 urina lysis , dipst ick Ketone Negati ve Not Available In-Office Order Internal Use Only DO Not Attach Compendium DO Not Attach Compendium, Do Not Delete/merge, [id number] 07/28/2024 17:53:31 07/28/20 24 07/28/2024 urina lysis , dipst ick Bilirubin Negati ve Not Available In-Office Order Internal Use Only DO Not Attach Compendium DO Not Attach Compendium, Do Not Delete/merge, [id number] 07/28/2024 17:53:31 07/28/20 24 07/28/2024 urina lysis , dipst ick Glucose Negati ve Not Available In-Office Order Internal Use Only DO Not Attach Compendium DO Not Attach Compendium, Do Not Delete/merge, [id number] 07/28/2024 17:53:31 07/28/20 24 07/28/2024 urina lysis , dipst ick Appearance Slight ly Cloudy Not Available In-Office Order Internal Use Only DO Not Attach Compendium DO Not Attach Compendium, Do Not Delete/merge, [id number] 07/28/2024 17:53:31 07/28/20 24 07/28/2024 urina lysis , dipst ick Color Yellow Not Available In-Office Order Internal Use Only DO Not Attach Compendium DO Not Attach Compendium, Do Not Delete/merge, [id number] 07/28/2024 17:53:31 08/31/20 24 08/31/2024 urina lysis , dipst ick Leukocytes Negati ve Not Available In-Office Order Internal Use Only DO Not Attach Compendium DO Not Attach Compendium, Do Not Delete/merge, 08/31/2024 13:33:14 08/31/20 24 08/31/2024 urina lysis , dipst ick Nitrite negati ve Not Available In-Office Order Internal Use Only DO Not Attach Compendium DO Not Attach Compendium, Do Not Delete/merge, 08/31/2024 13:33:14 08/31/20 24 08/31/2024 urina lysis , dipst ick Urobilinogen .2 Not Available In-Of fice Order Internal Use Only DO Not Attach Compendium DO Not Attach Compendium, Do Not Delete/merge, 08/31/2024 13:33:14 08/31/20 24 08/31/2024 urina lysis , dipst ick Protein 30 Not Available In-Office Order Internal Use Only DO Not Attach Compendium DO Not Attach Compendium, Do Not Delete/merge, 08/31/2024 13:33:14 08/31/20 24 08/31/2024 urina lysis , dipst ick pH 7.0 Not Available In-Office Order Internal Use Only DO Not Attach Compendium DO Not Attach Compendium, Do Not Delete/merge, [id number] 08/31/2024 13:33:14 08/31/20 24 08/31/2024 urina lysis , dipst ick Blood Negati ve Not Available In-Office Order Internal Use Only DO Not Attach Compendium DO Not Attach Compendium, Do Not Delete/merge, 08/31/2024 13:33:14 08/31/20 24 08/31/2024 urina lysis , dipst ick Specific [place] 1.025 Not Available In-Off ice Order Internal Use Only DO Not Attach Compendium DO Not Attach Compendium, Do Not Delete/merge, [id number] 08/31/2024 13:33:14 08/31/20 24 08/31/2024 urina lysis , dipst ick Ketone Negati ve Not Available In-Office Order Internal Use Only DO Not Attach Compendium DO Not Attach Compendium, Do Not Delete/merge, [id number] 08/31/2024 13:33:14 08/31/20 24 08/31/2024 urina lysis , dipst ick Bilirubin Negati ve Not Available In-Office Order Internal Use Only DO Not Attach Compendium DO Not Attach Compendium, Do Not Delete/merge, [id number] 08/31/2024 13:33:14 08/31/20 24 08/31/2024 urina lysis , dipst ick Glucose Negati ve Not Available In-Office Order Internal Use Only DO Not Attach Compendium DO Not Attach Compendium, Do Not Delete/merge, [id number] 08/31/2024 13:33:14 06/25/20 24 06/25/2024 non-s tress test (PROC ) No observ ation record ed. BARCODE Not Available 2023 17:24:01 Result Notes None recorded. Problems Name Problem SNOMED Code Status Onset Date Resolution Date Notes Provider Name and Address Organization Details Recorded Time Pregnanc y 50118178 Completed 202207/12/2024 Pam Gold MD Attn: Dean henry,[address] [facility], [place], [address], [facility] 4 11:11:48 Varicell a non-immu ne 615910313 Completed 202309/01/2024 Got vaccine 07/12/24 Liane Swain MD Attn: Dean henry,[address] [facility], [place], [address], [facility] - [facility] 4 07:58:58 Vomiting 299180376 Completed 202309/01/2024 S/p ED visit. Sx resolved prior to establish ing care & at this time. Tried B6 w/o unisom prior to establish ing care. No Tx at this time as Sx resolved. Liane Swain MD Attn: Dean henry,[address] [facility], [place], [address], [place] - [facility] 4 07:57:48 Pregnanc y 16817241 Completed 2022 CINDY Francis, [place] - [facility] 5 11:42:50 Varicell a non-immu ne 746652579 Completed 2023 Recommend pp vaccinati on Mariela CINDY Tay null, [place] - [facility] 5 11:42:49 Vomiting 668693065 Completed 2023 S/p ED visit. Sx resolved prior to establish ing care & at this time. Tried B6 w/o unisom prior to establish ing care. No Tx at this time as Sx resolved. CINDY Francis, [place] - [facility] 5 11:42:49 Hypereme sis gravidar um 24312790 Completed Unisom and Zofran Mariela Tay RN null, [place] - [facility] 5 11:42:49 Advanced maternal age 835090984 Completed Mariela Tay RN null, [place] - [facility] 5 11:42:49 Recurren t candidia sis of vagina 058813627 Completed 2023 Mariela Tay RN null, [place] - [facility] 5 11:42:49 Contrace ption care manageme nt Active 2023 Liane Swain MD Attn: Dean henry,[address] [place], [address], [place] - [facility] 4 07:57:31 Sleep pattern disturba nce 41492156 Active 2023 Liane Swain MD Attn: Dean henyr,[address] [place], [address], [place] - [facility] 4 07:57:41 Malaise and fatigue 482931278 Active 2023 Liane Swain MD Attn: Dean henry,[address] [place], [address], [place] [facility] 4 07:57:42 Postpart um care Completed 202309/05/2024 Liane Swain MD Attn: Dean henry,[address], [place], [address], [facility] 4 18:43:29 Postpart care Active 2023 Liane Swain MD Attn: Dean henry,[address], [place], [address], [facility] - [facility] 4 18:43:29 Problem Notes None recorded. Procedures Surgical History Date Name Laterality Status Provider Name and Address Organization Details Recorded Time 10/21/2020 Date of Last Pap Smear completed Kristin Cooley MA [facility] 12/06/2023 10:48:35 Imaging Results Imaging Date Name Status LastModified by Organiz ation Details LastModified Time 06/25/2024 non-stress test (PROC) completed BAR[facility] Information not available 06/25/2024 17:24:01 Procedure Notes None recorded. Medical Equipment None Reported. Allergies No known drug allergies Medications Name Sig Start Date Stop Date Status Note LastModified by Organization Details LastModified Time Vitamin B-6 25 mg tablet TAKE 1 TABLET BY MOUTH DAILY 04/13 completed Not Available Not Available Not Available fluconazole 150 mg tablet TAKE 1 TABLET BY MOUTH FOR YEAST INFECTION . 05/26 completed Not Available Not Available Not Available ondansetron HCl 4 mg tablet TAKE 1 TABLET BY MOUTH TWICE A DAY NEEDED FOR 30 DAYS, FOR VOMITING IN . 04/13 completed Not Available Not Available Not Available clotrimazol e 1 % vaginal cream INSERT 1 APPLICATO RFUL EVERY DAY BY VAGINAL ROUTE AT BEDTIME FOR 7 DAYS, FOR YEAST INFECTION . 06/09 completed Not Available Not Available Not Available topiramate 25 mg tablet 12/06 completed Not Available Not Available Not Available folic acid 400 mcg tablet TAKE 1 TABLET BY MOUTH EVERY DAY FOR 30 DAYS 04/13 completed Not Available Not Available Not Available cephalexin 500 mg capsule TAKE 1 CAPSULE BY MOUTH EVERY 12 HOURS active Not Available Not Available No t Available ferrous sulfate 325 mg (65 mg iron) tablet TAKE 1 TABLET BY MOUTH EVERY DAY active Not Available Not Available No t Available docusate sodium 100 mg capsule 08/03 completed Not Available Not Available Not Available ibuprofen 600 mg tablet active Not Available Not Available Not Available ondansetron 4 mg disintegrat ing tablet DISSOLVE 1 TABLET BY MOUTH EVERY 8 HOURS NEEDED FOR NAUSEA AND VOMITING 02/16 completed Not Available Not Available Not Available fluticasone propionate 50 mcg/actuati on nasal spray,suspe nsion SPRAY 2 SPRAYS INTO EACH NOSTRIL DAILY 12/06 completed Not Available Not Available Not Available Sleep Aid (doxylamine ) 25 mg tablet 04/13 completed Not Available Not Available Not Available 28 mg iron-800 mcg tablet Take 1 tablet every day by oral route at bedtime for 30 days, for iron deficienc y. 2023 active Not Available Not Available Not Avai lable Vitals Date Recorded Body height Body mass index (BMI) Body weight Body temperature Respiratory rate Heart rate Systolic blood pressure Diastolic blood pressure Provider Name and Address Organization Details Last Updated DateTime 4 162.56 cm 37.7 kg/m2 53244.8 8 g 97.5 [degF] 16 /min 98 /min 111 mm[Hg] 73 mm[Hg] Bijan Reilly [place] [facility] 4 11:12:58 Date Recorded Body height Body mass index (BMI) Body weight Heart rate Body temperature Respiratory rate Oxygen saturation Oxygen saturation in Arterial blood by Pulse oximetry Systolic blood pressure Diastolic blood pressure Provider Name and Address Organization Details Last Updated DateTime 4 162.56 cm 36.8 kg/m2 23488.8 7 g 97 /min 97.7 [degF] 16 /min 99 % 99 % 112 mm[Hg] 72 mm[Hg] Trixie pham [place] [facility] 4 11:50:42 Date Recorded Body height Respiratory rate Body temperature Oxygen saturation Oxygen saturation in Arterial blood by Pulse oximetry Heart rate Body mass index (BMI) Body weight Systolic blood pressure Diastolic blood pressure Provider Name and Address Organization Details Last Updated DateTime 4 162.56 cm 18 /min 97.8 [degF] 99 % 99 % 74 /min 34.3 kg/m2 85769.9 7 g 118 mm[Hg] 64 mm[Hg] GAVINO Dwyer [facility] 4 17:37:29 Date Recorded Body height Body mass index (BMI) Body weight Heart rate Oxygen saturation Oxygen saturation in Arterial blood by Pulse oximetry Systolic blood pressure Diastolic blood pressure Provider Name and Address Organization Details Last Updated DateTime 162.56 cm 35 kg/m2 63192.8 4 g 93 /min 96 % 96 % 122 mm[Hg] 68 mm[Hg] Jane Anne MA [facility] 4 11:45:03 Date Recorded Body height Body mass index (BMI) Body weight Heart rate Oxygen saturation Oxygen saturation in Arterial blood by Pulse oximetry Systolic blood pressure Diastolic blood pressure Provider Name and Address Organization Details Last Updated DateTime 162.56 cm 35 kg/m2 02239.1 9 g 87 /min 97 % 97 % 103 mm[Hg] 79 mm[Hg] Ayleen Najera MA [facility] 4 12:08:00 Social History Question Answer Notes LastModified by Organizat ion Details LastModified Time Tobacco Smoking Status Never Smoker Kristin Cooley MA [facility], [facility] 12/06/2023 10:55:23 Do You Have An Advance Directive? No Information not available 12/06/2023 What Is Your Level Of Alcohol Consumption? None Information not available 12/06/2023 Are You Blind Or Do You Have Difficulty Seeing? No Information not available 12/06/2023 What Is Your Level Of Caffeine Consumption? Occasional Information not available 12/06/2023 Are You Currently Employed? Yes Information not available 12/06/2023 Are You Deaf Or Do You Have Serious Difficulty Hearing? No Information not available 12/06/2023 What Type Of Diet Are You Following? 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 08/31/2024 Information not available 08/31/2024 How Many Children Do You Have? 2 Information not available 12/06/2023 Do You Use Protection During Sex? No Information not available 12/06/2023 What Is Your Relationship Status? Information not available 12/06/2023 Do You Use Your Seat Belt Or Car Seat Routinely? Yes Information not available 12/06/2023 Are You Sexually Active? Yes Information not available 12/06/2023 Do You Have Smoke And Carbon Monoxide Detectors In Your Home? Yes Information not available 12/06/2023 Are You Passively Exposed To Smoke? Yes Information no t available 12/06/2023 Do You Use Any Illicit Or Recreational Drugs? No Information not available 12/06/2023 Do You Use Sunscreen Routinely? No Information not available 12/06/2023 Has Tobacco Cessation Counseling Been Provided? Yes Information not available 12/06/2023 On What Date Was Tobacco Cessation Counseling Provided? 08/31/2024 Information not available 08/31/2024 Do You Or Have You Ever Used Any Other Forms Of Tobacco Or Nicotine? No Information not available 12/06/2023 Sex: Female Functional Status Question Answer Note LastModified by Organizat ion Details LastModified Time Are you able to care for yourself? Yes Information not available 12/06/2023 What is your exercise level? Occasional Information not available 12/06/2023 Mental Status None recorded. Family History Relationship Description Onset Age of this Age Resolved Age Notes LastModified by Organization Details LastModified Time Father No current problems or disability [email or web address] Not available 10:54:50 Mother No current problems or disability [email or web address] Not available 10:54:50 Notes:06/09/24, 07/28/24 Medical History Condition Response Anxiety Disorder N Diabetes N High Blood Pressure N Seizures/Epilepsy N Cancer N Thyroid Problems N Kidney or Bladder Problems N Allergies N Depression N Blood Clots N Asthma N Anemia N High Cholesterol N Hepatitis N Liver Disease N Heart Failure N Gynecological History Statement/Question Response Date of LMP 10/10/2023 On BCP's at Conception? N Menses Monthly N Date of Last Pap Smear 10/21/2020 Current Control Method None Age at First Child 27 LMP Definite Obstetrics History GPAL:G 3 P 3 0 0 3 Type Value Multiple Births 0 Full Term 3 Induced 0 Spontaneous 0 Premature 0 Living 3 Ectopics 0 Total 3 Immunizations Vaccine Type Date Status Note Provider Name and Address Organization Details Recorded Time Tdap 4 cancelled patient objection Rosa Elena Guerrero MD Attn: [address] [place], [address], [facility] 04/15/2024 09:30:56 Tdap 4 completed Pam Gold MD Attn: [address] [facility], [place], [address], [facility] 05/07/2024 16:31:00 Past Encounters Encounter ID Performer Location Encounter Start Date Encounter Closed Date Diagnosis/Indication Diagnosis SNOMED-CT Code Diagnosis ICD10 Code Diagnosis Note [id number] OSBALDO Knight (SEED SERVICE ADVISOR) [address] [place] [phone] 0 12/06/2023 10:12:31 12/19/2023 13:03:59 Routine care [id number] Z34.90 [id number] MD Diann Lai (SEED SERVICE ADVISOR) [address] [place] [phone] 12/23/2023 10:07:38 01/21/2024 12:36:57 test positive 494344335 Z32.01 Positive. Routine an tenatal care 703563223 Z34.91 OB plan: 33 y/o ; LUKAS 07/16/2024 based on LMP supported by dating USPre-Preg lisseth Weight: n/a, BMI: 20.1Pre-Ec lampsia Risk: NegativeAn ticipatory guidance givenConti nue PNVf/u in 4 gly00-56 wk labs ordered today Continuity Resident: n/aPregturner cy Risk Level: LowProblem List: Varicella non-immune status Ysabel Roy is a 33y/o who presents to clinic for dating US. LMP: 10/10/2024 GA: 10w4d LUKAS: 07/16/2024 Patient is sure of dating. DUS: 12/23/2023 AUA: 10w6d LUKAS: 07/14/2024 iscrepancy <7days LUKAS: 07/16/2024 Based on LMP = 1st trimester US INITIAL LABS Date: 12/06/2023 lood Type: O+Rh Type: PositiveAn tibody Screen: NegativeCB C: wnl. Hb 12.5VDRL/R SD: non-reacti veUrine Culture: negativeHB sAg: negativeHe pC: non-reacti veHIV: non-reacti veRubella: immuneVari owen: non-Immune CF: negativeSS : consistent with normal variantUDS : negative 10-12 week labs:Order ed today Situationa l Awareness: Support Person(s): Baby Name(s):Ed [place]: NegativePH Q9: negative GAD7: negativeAC ES: 1Resilienc e: HighSDOH: NoneDesire d delivering facility: [facility] to participat e in group visits: YesPlannin g to breastfeed : YesCircumc ision YesEpidura l YesPost-pa rtum contracept ion: UndecidedO pen to vaccinatio n:Tdap: YesCOVID: NoFlu: n/aHome visits ok: Yes Screening for malignant neoplasm of cervix 764480328 Z12.4 Unknown last PAP.Repeat today. Vomiting 713341879 R11.1 0 Resolved. ED visit prior to [facility]. Previously taking B6 alone (ED prescribed ). ED has give zofran Rx. All Sx resolved at this time.Advis ed if recurrence to advise and combo B6 & unisom likely more effective. Monitor. Varicella non-immune 371 679765 Z78.9 Per labs.Recom mend post-partu m vaccinatio n Body mass index 20-24 - normal 465970150 Z68.20 [facility] requiremen t. BMI 20.1 today.Shawn mmend continued lifestyle modificati ons & exercise >150mins/w k [id number] MD Diann OHARA (SEED SERVICE ADVISOR) [address] [place] [phone] 0 01/13/2024 10:09:41 02/10/2024 16:48:20 Routine care [id number] Z34.91 OB plan: 33 y/o ; LUKAS 07/16/2024 based on LMP supported by dating US Pre-Pregna ncy Weight: n/a, BMI: 20.1Pre-Ec lampsia Risk: Negative Continuity Resident: n/aPregturner cy Risk Level: Low Problem List:Varic hayden non-immune statusAMAH yperemesis gravidum LMP: 10/10/2024 GA: 10w4d LUKAS: 07/16/2024 Patient is sure of dating.DUS : 12/23/2023 AUA: 10w6d LUKAS: 07/14/2024 iscrepancy <7days LUKAS: 07/16/2024 Based on LMP = 1st trimester US INITIAL LABS Date: 12/06/2023 lood Type: O+Rh Type: PositiveAn tibody Screen: NegativeCB C: wnl. Hb 12.5VDRL/R SD: non-reacti veUrine Culture: negativeHB sAg: negativeHe pC: non-reacti veHIV: non-reacti veRubella: immuneVari owen: non-Immune CF: negativeSS : consistent with normal variantUDS : negativeSe quential/Q UAD/Matern iT21:{{pos neg*}}; consistent with {{male fem martin* unkno wn}}AFP: will need at 16 week gestation Anatomy Scan: {{concorda nt with dates; unremarkab le discord ant with dates}} 26-28 weeks: Date{{}}GT T: {{Pass Arnav l}}; 3HR GTT {{not warranted pass fail} }CBC: {{}}Urinal ysis: {{pos neg} }HIV:{{kenny ctive non- reactive}} RPR {{reactive non-react carol}}Tdap: {{given de clined}} Date:Rhoga m: {{unwarran cathy given} } Date: 36 weeksVagin al Cultures: Yeast: {{pos neg} };BV: {{pos neg} }GC:{{pos neg}}; Chlamydia: {{pos neg} };Trich: {{pos neg} }GBS {{postive negative}} Limited US:{{cepha lic breech transvers e}}Situati onal Awareness: Support Person(s): Baby Name(s):Ed [place]: NegativePH Q9: negative GAD7: negativeAC ES: 1Resilienc e: HighSDOH: NoneDesire d delivering facility: [facility] to participat e in group visits: YesPlannin g to breastfeed : YesCircumc ision YesEpidura l YesPost-pa rtum contracept ion: UndecidedO pen to vaccinatio n:Tdap: YesCOVID: NoFlu: n/aHome visits ok: Yes Varicella non-immune 371 127416 Z78.9 Advanced m aternal age 571502853 O09.521 -Will be 35-39 years old or older at the time of delivery: {{yes* no} }-Aspirin 81mg daily for pre-eclamp holley risk - start when able to tolerate PO-MFM level II anatomy US at 18-22 weeks: {{will order at 18-22 weeks* ord ered sched uled compl eted}} Consider IOL at 39 wks-If older than 40 years at delivery, transfer care to OB Hyperemesi s gravidarum 56559058 O21.0 Has lost 3 lbs since last visitWill start zofran since -First linea. Avoidance triggers, small/freq uent meals, monitor hydrationb . Folic acid only until able to tolerate PNVc. P6 pressure bandsd. Adeel capsule 250mg q6h or other adeel productse. OTC Vitamin B6 10-25mg q6h plus doxylamine (Unisom) 25 mg QHS (can increase to q8h if tolerated) f. Vit B6/Doxylam ine combo (Diclegis) 10mg/10mg q8h or 20mg/20mg q12h (expensive , consider OTC) -Second line, one of the following in addition to above - wanting to avoid anything that can make era. Promethazi ne (Phenergan ) 12.5-25mg q4-6h PRN or scheduled, oral or per rectumb. Prochlorpe razine (Compazine ) 25mg q6h PRN or scheduled, oral or per rectumc. Diphenhydr amine (Benadryl) 25-50mg q4-6h PRN or scheduled (avoid if taking doxylamine ) -Third lineW/o dehydratio n, in addition to above:b. Metoclopra mide (Reglan) 5-10mg q6-8h PRN or scheduledc . Ondansetro n (Zofran) 4-8mg q8h PRN or scheduled [id number] MD Diann Lai (SEED SERVICE ADVISOR) [address] [place] [phone] 0 02/17/2024 10:09:55 02/21/2024 09:30:51 Routine care [id number] Z34.90 - 34 y/o presenting @ 18.4 LUKAS 07/16/24 based on LMP supported by dating US here for routine care- no acute concerns or complaints this visit- Nausea and vomiting is improved- will send for anatomy scan today- given anticipato ry guidance, to continue PNV- follow up in 4 weeks OB plan: 33 y/o ; LUKAS 07/16/2024 based on LMP supported by dating US Pre-Pregna ncy Weight: n/a, BMI: 20.1 Pre-Eclamp holley Risk: Negative Continuity Resident: Dr Flores lalito Risk Level: Low Problem List:Varic hayden non-immune statusAMAH yperemesis gravidum LMP: 10/10/2024 GA: 10w4d LUKAS: 07/16/2024 Patient is sure of dating.DUS : 12/23/2023 AUA: 10w6d LUKAS: 07/14/2024 iscrepancy <7daysEDD: 07/16/2024 Based on LMP = 1st trimester US INITIAL LABS Date: 12/06/2023 lood Type: O+Rh Type: PositiveAn tibody Screen: NegativeCB C: wnl. Hb 12.5VDRL/R SD: non-reacti veUrine Culture: negativeHB sAg: negativeHe pC: non-reacti veHIV: non-reacti veRubella: immuneVari owen: non-Immune CF: negativeSS : consistent with normal variantUDS : negativeSe quential/Q UAD/Matern iT21:neg; consistent with female Situationa l Awareness: Support Person(s): Moose - Baby Name(s): [place]: Negative PHQ9: negative GAD7: negative ACES: 1 Resilience : High SDOH: None Desired delivering facility: [facility] Willing to participat e in group visits: Yes Planning to breastfeed : Yes Circumcisi on Yes Epidural Yes Post-partu m contracept ion: Undecided Open to vaccinatio n: Tdap: Yes COVID: No Flu: n/a Home visits ok: Yes [id number] MD Barry Lai 14 IM 4 [facility] [address] [place] [address] 03/17/2024 10:46:29 03/19/2024 13:04:07 Routine care 457519821 Z34.90 - 34 y/o presenting @ 22.5 LUKAS 07/16/24 based on LMP supported by dating US here for routine care- no acute concerns or complaints this visit- given anticipato ry guidance, to continue PNV- follow up in 4 weeks [id number] MD Barry Gray 14 IM 4 [facility] [address] [place] [address] 04/13/2024 14:25:27 04/16/2024 08:49:35 Routine care 289258762 Z34.90 - 34 y/o presenting @ 26.4 LUKAS 07/16/24 based on LMP supported by dating US here for routine care- is endorsing dysuria and itching, will culture urine and nuswab performed- given anticipato ry guidance, to continue PNV- follow up in 3 weeks, will receive TDap vaccine at that time [id number] MD Barry Gray 14 IM 4 [facility] [address] [place] [address] 05/07/2024 14:30:35 05/14/2024 16:14:07 Routine care 141751073 Z34.90 - 34 y/o presenting @ 30.0 LUKAS 07/16/24 based on LMP supported by dating US here for routine care- given anticipato ry guidance, to continue PNV- will give TDap vaccine today Iron defic iency anemia 66559040 D50.9 - pt Hgb of 9.3 with last bloodwork will send additional iron supplement ation at this time [id number] MD Barry OHARA 14 IM 4 [facility] [place] [address] 05/26/2024 11:19:33 06/02/2024 16:02:50 Iron deficiency anemia 35828700 D50.9 - pt Hgb of 9.3 with last bloodwork was never notified of additional iron supplement ation- will resend prescripti on at this time Vaginal discharge 811559 006 N89.8 - pt expressed increased discharge of late, denies any burning itching or redness, denies blood in urine- nuswab performed today, will FU on results Routine an tenatal care 078127116 Z34.90 - 34 y/o presenting @ 32.5 LUKAS 07/16/24 based on LMP supported by dating US here for routine care- was seen by this provider yesterday in Ob triage due to copious discharge and back pain/contr actions- nuswab ordered today, urine sent for culture and Pr/Cr- endorsing hip pain and frequent night time urination, advised on stretching and decreased oral intake before bed- given anticipato ry guidance, to continue PNV encouraged to take additional iron Proteinuria 16614694 R80 .9 - moderate protein seen on UA will order Pr/Cr for further evaluation [id number] MD Barry LOUIS 14 IM 4 [facility] [place] [address] 06/09/2024 11:27:53 07/07/2024 11:09:13 Routine care 955565313 Z34.90 - 34 y/o presenting @ 34.5 LUKAS 07/16/24 based on LMP supported by dating US here for routine care- reports symptoms from yeast infection are much improved- endorses lower back pain and advised to get belly band and rest as needed- continues to endorse hip pain and frequent night time urination, advised on stretching and decreased oral intake before bed- given anticipato ry guidance, to continue PNV and additional iron- given BP cuff this visit [id number] MD Barry Peter 14 IM 4 [facility] [place] [address] 06/25/2024 14:12:40 07/02/2024 08:38:29 Routine care 842840826 Z34.90 - 34 y/o presenting @ 37.0 LUKAS 07/16/24 based on LMP supported by dating US here for routine care- pt was seen in L&D in the week since last visit for painful contractio ns, there was noticeable cervical change to 3cm dilated in 2 hours however pt then stalled and was discharged with anticipato ry guidance- endorses continued contractio ns and back pain, denies any leakage of fluid/bloo d- will continue expectant management for , to continue PNV and additional iron- follow up in 1 week if not delivered [id number] MD Barry LOUIS 14 IM 4 [facility] [place] [address] 07/02/2024 11:03:32 07/03/2024 14:49:14 Routine care 150297593 Z34.90 - 34 y/o presenting @ 38.0 LUKAS 07/16/24 based on LMP supported by dating US here for routine care- pt was seen in L&D in the week since last visit for painful contractio ns, however unchanged cervical exam since office vist and did not make any change while on the floor and was DC'ed with return precaution s- endorses continued contractio ns however are irregular and back pain with pressure, denies any leakage of fluid/bloo d- will continue expectant management for harmeet for eIOL 07/10, to continue PNV and additional iron- urine had large leukocytes , will send for culture [id number] MD Barry OHARA 14 IM 4 [facility] [place] [address] 07/09/2024 11:34:14 07/22/2024 15:50:18 Routine care 559563125 Z34.90 - 34 y/o presenting @ 30.0 LUKAS 07/16/24 based on LMP supported by dating US here for routine care- endorses continued contractio ns however are irregular and back pain with pressure, denies any leakage of fluid/bloo d- will continue expectant management for harmeet for eIOL 07/10, to continue PNV and additional iron Advanced m aternal age 692008886 O09.523 continue supportive care Varicella non-immune 371 147195 Z78.9 will need vaccinatio n post delivery, continue supportive care Recurrent candidiasis of vagina 837227960 B37.32 has had multiple yeast infection during , suspect to be the cause of large presence of leukocytes seen in urineasymp tomatic at this time, will continue to monitor [id number] Osmany Guillen MD [place] 14 IM 4 [facility] [address] [place] [address] 07/28/2024 17:18:46 08/07/2024 10:29:47 care 189797767 Z39.2 Assessment : Patient is day 18. No acute concerns at this time. Plan:- Continue routine post kamron care- F/u if there's concerning sx such as fever, chills, chest pain, elevated bp, visual changes and headache. Obesity 350119775 E66.9 Assessment : Pt's BMI today is 34.3.Plan: - Discussed diet and life style modificati ons.- Recommende d A1c for next visit. Dysuria 67723525 R30.0 [id number] [facility] ([facility]ED SERVICE ADVISOR) [address] [place] [phone] 08/03/2024 11:03:53 08/07/2024 10:27:41 Contraception care management 288894445 Z30.9 - pt advised on contracept ion options, Nexplanon seemed to be the best fit for this pt- pt decided to think on her other options and will seek further care once she has decided, will do barrier method in the mean time for contracept ion- not yet cleared for sex, will re-evaluat e at 6 week visit support 40 3581351 Z39.1 - pt having trouble with milk supply, had no difficulti es breastfeed ing other children- advised on supportive measures of rest, warm fluids and warm compresses also to allow her to suckle more frequently [id number] MD Diann OHARA [facility] (SEED SERVICE ADVISOR) [address] [place] [phone] 08/31/2024 11:37:10 09/23/2024 12:43:38 care 393798774 Z39.2 Patient here for 6 week visit. Bonding well with baby, has support at home. Overall feels unwell, attributed to sleep deprivatio n. Would likely benefit from continued follow-up, preferably with consistent provider to maintain therapeuti c relationsh ip. Contracept ion care management 336769484 Z30.9 Discussed options. Considerin g Nexplanon or depo but ultimately defers today. Advised to use condoms if is not desired. Continue PNV. Can call office to schedule Nexplanon any time if desired. Sleep kenton debbie disturbance 70883982 G47.9 Multifacto rial, disrupted by baby at night and other children during the day. Inconsiste nt schedule. Encouraged proper sleep hygeine when able to, continued support from family. Malaise and fatigue 2717 08343 R53.81 DDX sleep deprivatio n, anemia, thyroid dysfunctio n. Hgb 13.0 during recent hospitaliz ation. Likely secondary to chronic sleep deprivatio n. Continue supportive care. Health Concerns Section Related Observation LastModified by Organization Detai ls LastModified Time None Recorded Concern Status LastModified by Organization Details LastModified Time None Recorded Advance Directives Directive N: Payers Encounter Date Sequence Insurance Name Policy Number Policy Bright Covered Member ID Bright Member ID Guarantor Name 07/02/2024 1 [employer] [place] ON [place] AFTER 2020 (MEDICAID REPLACEMENT - HMO) Ysabel Disu [id number] Ysabel Disu 07/09/2024 1 [employer] [place] ([place] REPLAC[place] - [place]MO) Ysabel Disu [id number] Ysabel Disu 07/28/2024 1 [employer] [place] 2020 ([place]ICA[place] REPLAC[place] - HMO) Ysabel Disu [id number] Ysabel Disu 08/03/2024 1 [employer] [place] 2020 ([place] REPLAC[place] - HMO) Ysabel Disu [id number] Ysabel Disu 08/31/2024 1 [employer] [place] REPLAC[place] - HMO) Ysabel Disu [id number] Ysabel Roy Notes Date Note Type Note Provider Name and Address Organization Details Recorded Time 4 text/html vaccination {{ Ysabel #}} is a {{ 34#}}y/o G{{ 3#}}P{{ 2#}} presenting @ {{ 30.0#}} dated by {{US LMP LMP supported by US*}}; here for {{initial routine*}} OB exam. Initial US performed {{1st* 2nd 3rd}} trimester. Preg complicated by: {{ hyperemsis gravidum (resolved), AMA#}} . She endorses good movement. She denies vaginal bleeding, vaginal discharge, loss of fluid, or contractions.- states she is feeling a lot of pressure, increased peeing- was seen in the L&D for contractions however was discharged with anticipatory guidance OB plan: 33 y/o ; LUKAS 07/16/2024 based on LMP supported by dating USPre- Weight: n/a, BMI: 20.1Pre-Eclampsia Risk: NegativeContinuity Resident: Dr GoldPregnancy Risk Level: Low Problem List:Varicella non-immune statusAMAHyperemesis gravidum (resolved) LMP: 10/10/2024 GA: 10w4d LUKAS: 07/16/2024 Patient is sure of dating.DUS: 12/23/2023 AUA: 10w6d LUKAS: 07/14/2024iscrepancy <7daysEDD: 07/16/2024 Based on LMP = 1st trimester US INITIAL LABS Date: 12/06/2023lood Type: O+Rh Type: PositiveAntibody Screen: NegativeCBC: wnl. Hb 12.5VDRL/RPR: non-reactiveUrine Culture: negativeHBsAg: negativeHepC: non-reactiveHIV: non-reactiveRubella: immuneVaricella: non-ImmuneCF: negativeSS: consistent with normal variantUDS: negativeSequential/QUAD/M [id number]:neg; consistent with female Anatomy Scan: {{concordant with dates; unremarkable* discordant with dates}} 26-28 weeks: Date {{ 04/13/24#}}GTT: {{Pass* Fail}}; 3HR GTT {{not warranted* pass fail}}CBC : {{ Hgb 9.3#}}Urinalysis: {{pos neg*}}HIV:{{reactiv e non-reactive*}}RPR {{reactive non-reactive*} }Tdap:{{given* declined}} Date: 05/07/24Rhogam: {{unwarranted* given}} Date: 36 weeks: 06/26/24GBS {{postive negative*}}Situ ational Awareness:Support Person(s): Moose Dunbar husbandPatricio Name(s):Prescott: NegativePHQ9: negative GAD7: negativeACES: 1Resilience: HighSDOH: NoneDes[facility] to participate in group visits: YesPlanning to breastfeed: YesCircumcision YesEpidural YesPost- contraception: UndecidedOpen to vaccination:Tdap: YesCOVID: NoFlu: n/aHome visits ok: Yes MODESTA TURNER MD Attn: Accounting,[address] [place], [address], [facility] 07/02/2024 17:21:56 4 text/html {{ Ysabel #}} is a {{ 34#}}y/o G{{ 3#}}P{{ 2#}} presenting @ {{ 39.0#}} dated by {{US LMP LMP supported by US*}}; here for {{initial routine*}} OB exam. Initial US performed {{1st* 2nd 3rd}} trimester. Preg complicated by: {{ hyperemsis gravidum (resolved), AMA#}} . She endorses good movement. She denies vaginal bleeding, vaginal discharge, loss of fluid, or contractions.- states she is feeling a lot of pressure OB plan: 33 y/o ; LUKAS 07/16/2024 based on LMP supported by dating USPre- Weight: n/a, BMI: 20.1Pre-Eclampsia Risk: NegativeContinuity Resident: Dr GoldPregnancy Risk Level: Low Problem List:Varicella non-immune statusAMARecurrent yeast infectionHyperemesis gravidum (resolved) LMP: 10/10/2024 GA: 10w4d LUKAS: 07/16/2024 Patient is sure of dating.DUS: 12/23/2023 AUA: 10w6d LUKAS: 07/14/2024iscrepancy <7daysEDD: 07/16/2024 Based on LMP = 1st trimester US INITIAL LABS Date: 12/06/2023lood Type: O+Rh Type: PositiveAntibody Screen: NegativeCBC: wnl. Hb 12.5VDRL/RPR: non-reactiveUrine Culture: negativeHBsAg: negativeHepC: non-reactiveHIV: non-reactiveRubella: immuneVaricella: non-ImmuneCF: negativeSS: consistent with normal variantUDS: negativeSequential/QUAD/M fipfhcG25:neg; consistent with female Anatomy Scan: {{concordant with dates; unremarkable* discordant with dates}} 26-28 weeks: Date {{ 04/13/24#}}GTT: {{Pass* Fail}}; 3HR GTT {{not warranted* pass fail}}CBC : {{ Hgb 9.3#}}Urinalysis: {{pos neg*}}HIV:{{reactiv e non-reactive*}}RPR {{reactive non-reactive*} }Tdap:{{given* declined}} Date: 05/07/24Rhogam: {{unwarranted* given}} Date: 36 weeks: 06/26/24GBS {{postive negative*}}Situ ational Awareness:Support Person(s): Moose Godinez Name(s):Prescott: NegativePHQ9: negative GAD7: negativeACES: 1Resilience: HighSDOH: NoneDes[facility] to participate in group visits: YesPlanning to breastfeed: YesCircumcision YesEpidural YesPost- contraception: UndecidedOpen to vaccination:Tdap: YesCOVID: NoFlu: n/aHome visits ok: Yes FRED NICE MD Attn: Accounting[address] [place], [address], [facility] 07/20/2024 13:39:11 4 text/html {{ Ysabel#}} is a {{ 34#}}yo G{{ 3#}} now P{{ 3#}} s/p {{Spontaneous Vaginal Delivery* Induced Vaginal Delivery Delivery}} of {{Full-term* Pre-term Pos t-term}} {{AGA* LGA SGA}} {{Male Female*}} infant @ {{ 39w d1#}}wks gestation on {{ 07/10/24#}}. Complicated by:{{ VZV non-immune status, AMA, resolved hyperemesis gravidum, anemia of pregnacy, BMI >30#}} Delivery {{uncomplicated* complica cathy by:}}Lacerations: {{none* 1st degree 2nd degree 3rd degree 4th degree}}EBL: {{ 106#}}mlPreHgb {{ 11#}} g/dL, Post Hgb {{ 11#}} g/dLBirth DetailsApgars: {{ 8#}} weight: {{ 3481#}}g ({{ 67#}} Percentile) Course: {{uncomplicated complicat ed by: complicated by:chest pain with elevated trop. otherwise neg workup#}} Today, {{ doing good. #}}- Bonding: Good- Breast: no issues- Belly: no pain- Bowels: regular bowel movement- Bladder: Just increased frequency- Bleeding: decreased- Boinking 'sex': Not active at this.- Blues (EDPS): good- Control: not on control. Osmany Guillen MD Attn: Accounting[address] [place], [address], [facility] 08/06/2024 22:13:19 4 text/html {{ Ysabel#}} is a {{ 34#}}yo G{{ 3#}} now P{{ 3#}} s/p {{Spontaneous Vaginal Delivery* Induced Vaginal Delivery Delivery}} of {{Full-term* Pre-term Pos t-term}} {{AGA* LGA SGA}} {{Male Female*}} infant @ {{ 39w d1#}}wks gestation on {{ 07/10/24#}}. Here for acute visit concerning issues and control.-States she has very minimal flow, was able to breastfeed both older children with no issues and is concerned she isn't producing enough for this baby, no fever or breast pain or abnormal discharge- would also like to discuss control, desires more children in the next 5 years and would like a non-hormonal control options, would like not to take pills and would prefer a non-estrogen containing control, already has heavy menstrual cycle but no family history of snaker cancers, would eventually like a tubal ligation Darcie Phillip MD Attn: Accounting[address] [facility], [place], [address], [place] [facility] 08/04/2024 01:01:23 4 text/html Ysabel is a 34 y/o here for care. S/p on 07/10/24. She reports not feeling well overall, stays up at night with the baby, tries to sleep during the day but interrupted by older kids. Also tosses and turns even when not interrupted.Can't concentrate, feels weak and drowsy, associated headache, dizziness, changes in vision starting 3 weeks ago and attributed to exhaustion.Helped at home by and MIL.Staying hydrated, has low appetiteTaking PNV intermittently Baby doing well, bondingStruggling with ideas of guilt and failure but denies thoughts of hurting self or baby Seen in ED on 07/25/24 for sharp chest pain, attributed to stress of Considering Nexplanon or depo but ultimately defers today.Endorses she does not want more kids but wants 1-2 more. FRED NICE MD Attn: Accounting[address] [facility], [place], [address], [place] - [facility] 09/06/2024 21:48:09 OBGyn Episode Ob Episode Information Episode Created Date Number of Fetuses Patient Bloodtype Patient rh Status Prepregnancy Weight lbs Domestic Partner Domestic Partner Phone Father Name Bale Piler Status 12/06/19 24 1 CLOSED Fetus Data First Name Last Name Admitted to NICU Weight (g) Sex Living Outcome Pediatric Complications Fetus ID Race Codes Race Delivery Type 2891.64 9 F Full Term [id number] Standard Vaginal Delivery Lukas Calculation Initial Lukas Date Initial Exam Date Initial Exam Provider Initial Ultrasound Date Last Menstrual Period Date Ultra Sound Weeks Gestation 0 Eighteen To Twenty Week Lukas Update Ultra Sound Date Fundal Height At Umbil Quickening Date Ultra Sound Latest Weeks Gestation Final Lukas Confirmed By Final Lukas Confirmed Date Final Lukas Date Ultra Sound Latest Days Gestation 0 0 Menstrual History Last Menstrual Date Menses Monthly On Bcp Conception Prior Menses Frequency Hcg Plus Date Menarche Onset Age Delivery Information Delivery Date Delivery Type Labor Anesthesia Weeks Gestation Incision Type Labor Labor Length Hrs Delivered By Post Complications Tubal Sterilization Discharge Date Comments 8 [facility] idural 38 2 baby [place] in [place] Discharge Information Feeding Method Contraceptive Method Maternal HG B and HCT Levels Ob Episode Information Episode Created Date Number of Fetuses Patient Bloodtype Patient rh Status Prepregnancy Weight lbs Domestic Partner Domestic Partner Phone Father Name Bale Piler Status 12/06/19 24 1 CLOSED Fetus Data First Name Last Name Admitted to NICU Weight (g) Sex Living Outcome Pediatric Complications Fetus ID Race Codes Race Delivery Type 3005.04 7 M Full Term [id number] Standard Vaginal Delivery Lukas Calculation Initial Lukas Date Initial Exam Date Initial Exam Provider Initial Ultrasound Date Last Menstrual Period Date Ultra Sound Weeks Gestation 0 Eighteen To Twenty Week Lukas Update Ultra Sound Date Fundal Height At Umbil Quickening Date Ultra Sound Latest Weeks Gestation Final Lukas Confirmed By Final Lukas Confirmed Date Final Lukas Date Ultra Sound Latest Days Gestation 0 0 Menstrual History Last Menstrual Date Menses Monthly On Bcp Conception Prior Menses Frequency Hcg Plus Date Menarche Onset Age Delivery Information Delivery Date Delivery Type Labor Anesthesia Weeks Gestation Incision Type Labor Labor Length Hrs Delivered By Post Complications Tubal Sterilization Discharge Date Comments 1 [facility] idural 38 4 Discharge Information Feeding Method Contraceptive Method Maternal HG B and HCT Levels Ob Episode Information Episode Created Date Number of Fetuses Patient Bloodtype Patient rh Status Prepregnancy Weight lbs Domestic Partner Domestic Partner Phone Father Name Bale Piler Status 12/06/19 24 1 O Positive CLOSED Fetus Data First Name Last Name Admitted to NICU Weight (g) Sex Living Outcome Pediatric Complications Fetus ID Race Codes Race Delivery Type yosola gianni disu false 3481.31 86 F true Full Term reducible umblical herniapeds [facility], [facility]. [address] [id number] Black or Afric an Ameri can Vaginal Problems Problem Notes Continuity Resident: RAFAELA burns call her directly should patient present to L&D Problem Name Start Date End Date Resolution Snomed Code Not e Recurrent candidiasis of vagina 05/28/2024 527268516 Hyperemesis gravidarum [id number] Unisom and Zofr an Advanced maternal age [id number] Varicella non-immune 12/12/2023 [id number] 9 Recommend pp vaccination Vomiting 12/16/2023 [id number] S/p ED vi sit. Sx resolved prior to establishing care & at this time. Tried B6 w/o unisom prior to establishing care. No Tx at this time as Sx resolved. 10/10/2023 [id number] Lukas Calculation Initial Lukas Date Initial Exam Date Initial Exam Provider Initial Ultrasound Date Last Menstrual Period Date Ultra Sound Weeks Gestation 07/16/2024 12/06/2023 [email or web address] 12/23/2023 10/10/2023 10 Eighteen To Twenty Week Lukas Update Ultra Sound Date Fundal Height At Umbil Quickening Date Ultra Sound Latest Weeks Gestation Final Lukas Confirmed By Final Lukas Confirmed Date Final Lukas Date Ultra Sound Latest Days Gestation 12/23/19 24 10 [email or web address] 01/05/2024 07/16/20 24 6 Pre- Flowsheet Flowsheet Date 12/06/2023 Watts Score Blood Edema Fundus Height Fundus Units Glucose Ketones Leukocytes Nitrite Labor Signs Protein Cervic Dilation Cervic Effacement Cervic Station Type Weight in lbs Pre/Post Dialysis Refused With clothes 200.754186797927 BP Diastolic BP Location Tested BP Systolic BP Type 68 108 sitting Fetus Heart Rate Present Fetus Movement Comments Flowsheet Date 12/23/2023 Watts Score Blood Edema Fundus Height Fundus Units Glucose Ketones Leukocytes Nitrite Labor Signs Protein Cervic Dilation Cervic Effacement Cervic Station neg none none negative none neg Type Weight in lbs Pre/Post Dialysis Refused With clothes 117.134718902555 BP Diastolic BP Location Tested BP Systolic BP Type sitting Fetus Heart Rate Present A 157 Present Fetus Movement A No Comments Ysabel Disu is a 33y/o 02 presenting @ 10w4d dated by LMP; here for initial OB exam. Preg complicated by: VZV non-immune status & resolved emesis. She has no significant concerns today and reports normal antepartum symptoms of . Has not yet experienced movement. She denies vaginal bleeding, vaginal discharge, loss of fluid, or contractions. Had an ER visit last wk sat and Marvel for recurrent intractable emesis. Emesis has since resolved. Tried B6 alone (per ED recs), didn't find effective. Did a UA that reflexed, but they don't do a urine culture. They gave her ABX, and said it was just in case, she develops a UTI . Denies any dysuria, fever or flank pain. Pt would like to know opinion of their recs. UA today wnl. Was taking folic acid prior to and has since transitioned to PNV.Anticipatory guidance givenContinue PNVf/u in 4 qdg07-19 wk labs ordered today Flowsheet Date 01/13/2024 Watts Score Blood Edema Fundus Height Fundus Units Glucose Ketones Leukocytes Nitrite Labor Signs Protein Cervic Dilation Cervic Effacement Cervic Station neg none none small neg Type Weight in lbs Pre/Post Dialysis Refused With clothes 197.317521628799 BP Diastolic BP Location Tested BP Systolic BP Type 66 114 sitting Fetus Heart Rate Present A 155 Present Fetus Movement Comments 33y/o presenting @ 1 0w4d dated by LMP; here for initial OB exam. Preg complicated by: VZV non-immune status, AMA and hyperemesis gravidum. Still vomiting even on the Unisom. She denies vaginal bleeding, vaginal discharge, loss of fluid, or contractions. AFP at 16 weeks. Will try folic acid and restart zofran. F/u in 2 wks. If still vomiting in 2 weeks, add reglan. Flowsheet Date 02/17/2024 Watts Score Blood Edema Fundus Height Fundus Units Glucose Ketones Leukocytes Nitrite Labor Signs Protein Cervic Dilation Cervic Effacement Cervic Station neg none none trace neg Type Weight in lbs Pre/Post Dialysis Refused With clothes 202.459615860446 BP Diastolic BP Location Tested BP Systolic BP Type 70 120 sitting Fetus Heart Rate Present A Present Fetus Movement Comments - 34 y/o presenting @ 1 8.4 LUKAS 07/16/24 based on LMP supported by dating US here for routine care- no acute concerns or complaints this visit - Nausea and vomiting is improved- will send for anatomy scan today- given anticipatory guidance, to continue PNV- follow up in 4 weeksContinuity Resident: Dr Gold Flowsheet Date 03/17/2024 Watts Score Blood Edema Fundus Height Fundus Units Glucose Ketones Leukocytes Nitrite Labor Signs Protein Cervic Dilation Cervic Effacement Cervic Station neg none none trace neg Type Weight in lbs Pre/Post Dialysis Refused Weight 204.290835690783 BP Diastolic BP Location Tested BP Systolic BP Type 76 111 sitting Fetus Heart Rate Present A 150 Fetus Movement Comments - 34 y/o presenting @ 2 2.5 LUKAS 07/16/24 based on LMP supported by dating US here for routine care- no acute concerns or complaints this visit - given anticipatory guidance, to continue PNV- follow up in 4 weeks Flowsheet Date 04/13/2024 Watts Score Blood Edema Fundus Height Fundus Units Glucose Ketones Leukocytes Nitrite Labor Signs Protein Cervic Dilation Cervic Effacement Cervic Station neg none 26 cm none negative neg Type Weight in lbs Pre/Post Dialysis Refused With clothes 209.127073211485 BP Diastolic BP Location Tested BP Systolic BP Type 75 112 sitting Fetus Heart Rate Present A 154 Present Fetus Movement Comments - 34 y/o presenting @ 2 6.4 LUKAS 07/16/24 based on LMP supported by dating US here for routine care - is endorsing dysuria and itching, will culture urine and nuswab performed - given anticipatory guidance, to continue PNV - follow up in 3 weeks, will receive TDap vaccine at that time Flowsheet Date 05/07/2024 Watts Score Blood Edema Fundus Height Fundus Units Glucose Ketones Leukocytes Nitrite Labor Signs Protein Cervic Dilation Cervic Effacement Cervic Station neg none 30 wks none negative neg Type Weight in lbs Pre/Post Dialysis Refused With clothes 209.613133930618 BP Diastolic BP Location Tested BP Systolic BP Type 66 124 sitting Fetus Heart Rate Present A 147 Present Fetus Movement Comments - 34 y/o presenting @ 3 0.0 LUKAS 07/16/24 based on LMP supported by dating US here for routine care - no acute concerns or complaints at this time- given anticipatory guidance, to continue PNV added additional Fe supplementation - will give TDap vaccine today Flowsheet Date 05/26/2024 Watts Score Blood Edema Fundus Height Fundus Units Glucose Ketones Leukocytes Nitrite Labor Signs Protein Cervic Dilation Cervic Effacement Cervic Station neg 32 cm none negative 1+ Type Weight in lbs Pre/Post Dialysis Refused With clothes 210.934132170420 BP Diastolic BP Location Tested BP Systolic BP Type 70 R arm 107 sitting Fetus Heart Rate Present A 140 Fetus Movement A Yes Comments - 34 y/o presenting @ 3 2.5 LUKAS 07/16/24 based on LMP supported by dating US here for routine care - was seen by this provider yesterday in Ob triage due to copious discharge and back pain/contractions- nuswab ordered today, urine sent for culture and Pr/Cr - endorsing hip pain and frequent night time urination, advised on stretching and decreased oral intake before bed - given anticipatory guidance, to continue PNV encouraged to take additional iron Flowsheet Date 06/09/2024 Watts Score Blood Edema Fundus Height Fundus Units Glucose Ketones Leukocytes Nitrite Labor Signs Protein Cervic Dilation Cervic Effacement Cervic Station trace none 36 cm none negative neg Type Weight in lbs Pre/Post Dialysis Refused With clothes 213.136147961771 BP Diastolic BP Location Tested BP Systolic BP Type 70 R arm 111 sitting Fetus Heart Rate Present A 150 Fetus Movement A Yes Comments - 34 y/o presenting @ 3 4.5 LUKAS 07/16/24 based on LMP supported by dating US here for routine care- reports symtpoms from yeast infection are much improved- endorsing hip pain and frequent night time urination, advised on stretching and decreased oral intake before bed- given anticipatory guidance, to continue PNV and additional iron Flowsheet Date 06/25/2024 Watts Score Blood Edema Fundus Height Fundus Units Glucose Ketones Leukocytes Nitrite Labor Signs Protein Cervic Dilation Cervic Effacement Cervic Station neg none negative neg 3cm 50% - 3 Type Weight in lbs Pre/Post Dialysis Refused With clothes 214.813755031197 BP Diastolic BP Location Tested BP Systolic BP Type 73 R arm 117 sitting Fetus Heart Rate Present A 150 Present Fetus Movement A Yes Comments - 34 y/o presenting @ 3 7.0 LUKAS 07/16/24 based on LMP supported by dating US here for routine care- pt was seen in L&D in the week since last visit for painful contractions, there was noticeable cervical change to 3cm dilated in 2 hours however pt then stalled and was discharged with anticipatory guidance- endorses continued contractions and back pain, denies any leakage of fluid/blood- will continue expectant management for , to continue PNV and additional iron- follow up in 1 week if not delivered Flowsheet Date 07/02/2024 Watts Score Blood Edema Fundus Height Fundus Units Glucose Ketones Leukocytes Nitrite Labor Signs Protein Cervic Dilation Cervic Effacement Cervic Station neg trace 40 cm none negative Backpain neg 4cm 5 0% -2 Type Weight in lbs Pre/Post Dialysis Refused With clothes 219.505446805415 BP Diastolic BP Location Tested BP Systolic BP Type 73 R arm 111 sitting Fetus Heart Rate Present A 151 Present Fetus Movement A Yes Comments - 34 y/o presenting @ 3 8.0 LUKAS 07/16/24 based on LMP supported by dating US here for routine care- pt was seen in L&D in the week since last visit for painful contractions, however unchanged cervical exam since office vist and did not make any change while on the floor and was DC'ed with return precautions - endorses continued contractions however are irregular and back pain with pressure, denies any leakage of fluid/blood- will continue expectant management for harmeet for eIOL 07/10, to continue PNV and additional iron Flowsheet Date 07/09/2024 Watts Score Blood Edema Fundus Height Fundus Units Glucose Ketones Leukocytes Nitrite Labor Signs Protein Cervic Dilation Cervic Effacement Cervic Station neg none 40 cm none negative Backpain neg 60 % -2 Type Weight in lbs Pre/Post Dialysis Refused With clothes 214.938813100345 BP Diastolic BP Location Tested BP Systolic BP Type 72 R arm 112 sitting Fetus Heart Rate Present A 147 Present Fetus Movement A Yes Comments - 34 y/o presenting @ 3 9.0 LUKAS 07/16/24 based on LMP supported by dating US here for routine care- endorses continued contractions however are irregular and back pain with pressure, denies any leakage of fluid/blood- will continue expectant management for harmeet for eIOL 07/10, to continue PNV and additional iron Flowsheet Date 08/03/2024 Watts Score Blood Edema Fundus Height Fundus Units Glucose Ketones Leukocytes Nitrite Labor Signs Protein Cervic Dilation Cervic Effacement Cervic Station Type Weight in lbs Pre/Post Dialysis Refused With clothes 204.700548368960 BP Diastolic BP Location Tested BP Systolic BP Type 68 L arm 122 sitting Fetus Heart Rate Present Fetus Movement Comments Menstrual History Last Menstrual Date Menses Monthly On Bcp Conception Prior Menses Frequency Hcg Plus Date Menarche Onset Age 1210/10/2023 false Genetic Screening And Infection History Question Response Note Patient's Age Will Be 35 Yea rs Or Older At Estimated Date of Delivery true 89 Thalassemia (Mongolian, Romansh, Mediterranean, Or Background): MCV < 80 false Neural Tube Defect (Meningom yelocele, Spina Bifida, Or Anencephaly) false Congenital Heart Defect false Down Syndrome false Blas-Sachs (eg, Jain, Cajun, Swedish-Dominican) f alse Eboni Disease true Sickle Cell Disease Or Trait () false Hemophilia Or Other Blood Disorders false Muscular Dystrophy false Cystic Fibrosis false [place]'s Chorea false Mental Retardation/Autism false Other Inherited Genetic Or Chromosomal Disorder false Maternal Metabolic Disorder (eg, Type 1 Diabetes , PKU) false Patient Or Baby's Father Had A Child With Defects Not Listed Above false Recurrent Loss, Or A Stillbirth false Medications (including Suppl ements, Vitamins, Herbs, OTC Drugs), Illicit/Recreational Drugs, Alcohol false Any Other Genetic History false Live With Someone With TB Or Exposed To TB false Patient Or Partner Has History Of Genital Herpes false Rash Or Viral Illness Since Last Menstrual Perio d false History Of STD, Gonorrhea, Chlamydia, HPV, Syphi lis false Other Infection History false History of HIV false History of Hepatitis false Prior GBS-infected child false Plans and Education First Trimester Discussed Date Discussion Item Discussion Note Discuss ed By 12/06/2023 12/06/23 Breast and Bottle, cb-rma gwenshandres Second Trimester Discussed Date Discussion Item Discussion Note Discuss ed By 12/06/2023 Selecting a care provider 12/06/[address] Sofia MARCIAL [facility] dwaine 12/06/2023 family planning/tubal sterilization 12/06/23 PPBC Undecided, cb-rma cbstevenshawma Third Trimester Discussed Date Discussion Item Discussion Note Discuss ed By 12/06/2023 Anesthesia plans 12/06/23 Yes to Epidural , cb-rma raysaradshawma 12/06/2023 Circumcision 12/06/23 If Baby Boy, yes to circ, cb-rma dwaine 12/06/2023 12/06/23 Breast and Bottle, -rma [facility] Delivery Information Delivery Date Delivery Type Labor Anesthesia Weeks Gestation Incision Type Labor Labor Length Hrs Delivered By Post Complications Tubal Sterilization Discharge Date Comments [facility] 39.1 false Pam Gold RES None false 07/12/2024 Discharge Information Feeding Method Contraceptive Method Maternal HG B and HCT Levels Combination none 11
--- OUTSIDE RECORDS SUMMARY | 2025-02-05 15:12 | XMS_ITS | Data Portability ---
Author Organization [facility] Address [address] [place] [place] [address] [place] [address] Assessment Encounter Date Assessment Date Assessment LastModified by Organization Details LastModified Time 04/26/2021 04/26/2021 Patient is __34_weeks . Discussed plan. Not available 04/28/2021 09:13:32 05/17/2021 05/17/2021 Patient is _37__weeks . Discussed plan. Not available 05/17/2021 18:28:57 06/21/2021 06/21/2021 plan f/u 2 week if one stitch does not dissolve, f/u wwe Not available 06/21/2021 16:38:06 Plan of Treatment Reminders Order Date Submit Date Provider Last Modified By Organization Details Last Modified Time Details Appointments None recorded. Lab None recorded. Referral None recorded. Procedures None recorded. Surgeries None recorded. Imaging US, obstetric , follow-up [facility], [address], [address], [place], [address], 13:18:05 Medication Orders Reglan 10 mg tablet [facility] [id number] [facility], [address], [place], [address], 17:02:42 Valtrex 1 gram tablet [facility] [id number] [facility], [address], [place], [address], 14:02:20 Patient TargetsNo targets recorded. Patient InstructionsNo instructions recorded. Reason for Referral None Reported. Results Created Date Observation Date Name Description Value Unit Range Abnormal Flag Note LastModifiedBy Organization Detail LastModifiedTime 05/08/20 21 05/08/2021 CULTU RE: GROUP B STREP SCREE N, REFLE X SUSCE PTIBI LITY result report SEE RESULT S BELOW Test: Cultu re: Group B Strep , Refle x Susce ptibi lity ([facility]/ [facility] ) Speci men Sourc e: Vagin a/Rec nam Speci men Type: Vagin al/Re ctal Speci men Date: 2020 1:06 PM Resul t Date: 2020 3:53 PM Resul t Statu s: Final resul t Abnor mal: No Resul ting Lab: [facility] [address] [facility] [address] Tel: CULTU RE ----- ----- ----- --- No Group B strep isola cathy at 2 days (soila ctive broth enhan cemen t) Not Available [facility] (Lab) [address] [facility], [place], [address], 05/11/2021 16:55:58 04/14/20 21 04/14/2021 US, obste tric, follo w-up No observ ation record ed. [facility] [address] [place] [address], [address], 04/17/2021 09:08:24 04/14/20 21 04/14/2021 US, obste tric, follo w-up No observ ation record ed. [email or web address] [facility] [address] [place] [address], [address], 04/17/2021 10:26:12 04/17/20 21 04/14/2021 US, obste tric, follo w-up No observ ation record ed. [email or web address] [facility] [address], [place], [address], 04/18/2021 09:35:41 05/08/20 21 05/08/2021 US, obste tric, follo w-up No observ ation record ed. [facility] [address], [place], [address], 05/08/2021 17:05:30 05/08/20 21 05/08/2021 US, obste tric, follo w-up No observ ation record ed. [facility] [address], [facility], [place], [address], 05/14/2021 11:14:27 06/24/20 22 06/24/2022 XR, chest No observ ation record ed. [email or web address] [facility] [address], [place], [address], 05/02/2023 10:53:23 Result Notes None recorded. Problems Name Problem SNOMED Code Status Onset Date Resolution Date Notes Provider Name and Address Organization Details Recorded Time Pregnanc y 12945860 Completed 202005/29/2021 Mariela briones, [facility] 1 15:06:08 Cerebral ventricu lomegaly 715000104 Completed [facility] 03/16 - lateral ventricle s WNL 04/14- Level II WNL Mariela davenportl [facility], [facility] 1 15:06:01 Herpes simplex 73353385 Completed 1+ - hx IgG - valtrex at 36wks Mariela davenportl null, [facility] 1 15:06:01 Polyhydr amnios 12157034 Completed 16.3cm @ 04/14 level II Mariela davenportl anselmo, [facility] 15:06:01 Problem Notes None recorded. Procedures Surgical History None recorded. Imaging Results Imaging Date Name Status LastModified by Organiz ation Details LastModified Time 04/14/2021 US, obstetric, follow-up completed [email or web address] [facility] [address], [address], 04/17/2021 09:08:24 04/14/2021 US, obstetric, follow-up completed [email or web address] [facility] [address], [address], 04/17/2021 10:26:12 04/14/2021 US, obstetric, follow-up completed [email or web address] [facility] [address], [address], 04/18/2021 09:35:41 05/08/2021 US, obstetric, follow-up completed jaz [address], [place], [address], 05/08/2021 17:05:30 05/08/2021 US, obstetric, follow-up completed [facility] [address], [facility], [place], [address], 05/14/2021 11:14:27 06/24/2022 XR, [facility] [place] [address] [address] [facility] [address], [place], [address], 05/02/2023 10:53:23 Procedure Notes None recorded. Medical Equipment None Reported. Allergies No known drug allergies Medications Name Sig Start Date Stop Date Status Note LastModified by Organization Details LastModified Time terconazole 0.8 % vaginal cream Insert 1 applicato rful every day by vaginal route at bedtime for 3 days. 03/15 completed Not Available Not Available Not Available Zithromax Z-Stiven 250 mg tablet TAKE 2 TABLETS (500 MG) BY ORAL ROUTE ONCE DAILY FOR 1 DAY THEN 1 TABLET (250 MG) BY ORAL ROUTE ONCE DAILY FOR 4 DAYS 02/24 completed Not Available Not Available Not Available Diflucan 150 mg tablet Take 1 tablet by mouth once 03/15 completed Not Available Not Available Not Available Reglan 10 mg tablet Take 1 tablet 3 times a day by oral route for 14 days. 2020 active Not Available Not Available Not Avai lable ondansetron 8 mg disintegrat ing tablet Place 1 tablet twice a day by transling ual route. 01/30 completed Not Available Not Available Not Available Valtrex 1 gram tablet Take 1 tablet every day by oral route. 2020 active Not Available Not Available Not Avai lable iron active Not Available Not Availa ble Not Available active Not Available Not Avai lable Not Available Vitals Date Recorded Body height Body mass index (BMI) Body weight Systolic blood pressure Diastolic blood pressure Provider Name and Address Organization Details Last Updated DateTime 04/26/2021 163.83 cm 32.3 kg/m2 41232.14 267 g 115 mm[Hg] 74 mm[Hg] Mirela Angel [facility] 18:51:08 Date Recorded Body height Body mass index (BMI) Body weight Systolic blood pressure Diastolic blood pressure Provider Name and Address Organization Details Last Updated DateTime 05/08/2021 163.83 cm 33.3 kg/m2 45919.69 689 g 121 mm[Hg] 78 mm[Hg] Marina Cho [facility] 12:18:47 Date Recorded Body height Body mass index (BMI) Body weight Systolic blood pressure Diastolic blood pressure Provider Name and Address Organization Details Last Updated DateTime 05/17/2021 163.83 cm 33.5 kg/m2 42275.28 926 g 129 mm[Hg] 80 mm[Hg] Mirela Angel [facility] 18:23:32 Date Recorded Body height Body mass index (BMI) Body weight Systolic blood pressure Diastolic blood pressure Provider Name and Address Organization Details Last Updated DateTime 06/21/2021 163.83 cm 31.8 kg/m2 17428.37 g 117 mm[Hg] 77 mm[Hg] Mirela Angel [facility] 15:43:01 Social History Question Answer Notes LastModified by Organizat ion Details LastModified Time Tobacco Smoking Status Never Smoker Luzma Thurman anselmo, [facility] 11/01/2020 14:16:26 What Is Your Level Of Alcohol Consumption? Occasional [email or web address] Information not available 03/15/2021 If You Are , What Was Your Level Of Alcohol Consumption Prior To ? None [email or web address] Information not available 03/15/2021 Are You Blind Or Do You Have Difficulty Seeing? No [email or web address] Information n ot available 03/15/2021 What Is Your Level Of Caffeine Consumption? Occasional [email or web address] Information not available 03/15/2021 In The 14 Days Before Symptom Onset, Have You Had Close Contact With A Laboratory-confirm ed COVID-19 While That Case Was Ill? No Information n ot available 03/15/2021 In The 14 Days Before Symptom Onset, Have You Had Close Contact With A Person Who Is Under Investigation For COVID-19 While That Person Was Ill? No [email or web address] Information not available 03/15/2021 Have You Been To An Area Known To Be High Risk For COVID-19? No [email or web address] Information not available 03/15/2021 Are You Deaf Or Do You Have Serious Difficulty Hearing? No [email or web address] Information not available 03/15/2021 What Type Of Diet Are You Following? REGULAR [email or web address] Information n ot available 03/15/2021 Have You Ever Been Counseled For Unhealthy Alcohol Use? No [email or web address] Information not available 03/15/2021 Do You Use Your Seat Belt Or Car Seat Routinely? Yes [email or web address] Information not available 03/15/2021 Do You Have Smoke And Carbon Monoxide Detectors In Your Home? Yes [email or web address] Information not available 03/15/2021 Do You Feel Stressed (tense, Restless, Nervous, Or Anxious, Or Unable To Sleep At Night)? [id number] [email or web address] Information not available 03/15/2021 Do You Use Any Illicit Or Recreational Drugs? No [email or web address] Information not available 03/15/2021 Do You Use Sunscreen Routinely? Yes [email or web address] Information not available 03/15/2021 Has Tobacco Cessation Counseling Been Provided? No [email or web address] Information not available 03/15/2021 Do You Or Have You Ever Used Any Other Forms Of Tobacco Or Nicotine? No [email or web address] Information not available 03/15/2021 Sex: Unknown Functional Status Question Answer Note LastModified by Organizat ion Details LastModified Time Are you able to walk? YESWOREST [email or web address] Information not available 03/15/2021 What is your exercise level? Occasional [email or web address] Information not available 03/15/2021 Mental Status None recorded. Family History Relationship Description Onset Age of this Age Resolved Age Notes LastModified by Organization Details LastModified Time Father No current problems or disability [email or web address] Not available 11/01 14:16:23 Mother No current problems or disability [email or web address] Not available 11/01 14:16:23 Medical History Condition Response Allergies (Food, seasonal, environmental ) N Other N Breast Cancer N Drug/Latex Allergies/Reactions N Blood Transfusion N Dermatologic Disorders N Lung Disease N Defects or Inherited Disease N Breast Problem N Gestational Diabetes N Hematologic disorders N Anesthesia Complications N History of STI N Deep Vein Thrombosis N Polycystic ovary syndrome N Anxiety Disorder N Autoimmune disease N Arthritis N Infertility N Polyps N Acid Reflux (GERD) N History of abnormal pap N Cancer N Stroke N Varicosities N Neurologic/Epilepsy N Endometriosis N High Cholesterol N Headaches N Fibromyalgia N Kidney Disease N Heart Problems N Kidney or Bladder Problems N Thyroid Problems N GI Problems N Eating Disorder N Anemia N Art (IVF or FET) N Psychiatric Illness N Ovarian Cancer N Diabetes N Pulmonary (TB, Asthma) N Hepatitis/Liver Disease N Eczema N Urinary Tract Infection N Abuse/Domestic Violence N Asthma N Trauma/Violence N Depression/ depression N Heart Disease N Pre-Eclampsia N Hypertension N Osteoporosis N Thrombophilias N Gynecological History Statement/Question Response Date of Last Pap Smear Current Control Method None Date of LMP 08/30/2020 LMP Approximate Obstetrics History GPAL:G 2 P 2 0 0 2 Type Value Full Term 2 Living 2 Total 2 Past Encounters Encounter ID Performer Location Encounter Start Date Encounter Closed Date Diagnosis/Indication Diagnosis SNOMED-CT Code Diagnosis ICD10 Code Diagnosis Note [id number] Martha Ruby [facility] [address],[place] [address] 11/01/2020 14:00:23 11/05/2020 15:29:06 test positive 767722189 Z32.01 Risk factors addressed: Tobacco Cessation, Safe Sexual Practices, environmen tru, work hazards, travel restrictio ns, seat belt use.Eat a health well balanced diet, avoid alcohol, tobacco, and street drugs. Engage in daily low impact exercise, avoid temperatur e extremes, and cat, rodent, and bird feces.Avoi d travel to areas where zika virus is a concern.Of fered carrier screen and NIPT. Will decide at 12 week visit and bring in consent forms. Handouts given and discussed with patient.Ch ildbirth classes recommende d.New OB sheet given. If previous , counseling .Pt verbalizes that she understand s the importance of above instructio ns.All questions were answered. Patient reminded to have annual well woman examinatio n and address [facility] . [id number] Iliana Gomez [facility] [address],[place] [address] 11/01/2020 14:01:10 11/02/2020 08:05:26 [id number] Darwin Moeller MD [facility] [address],[place] [address] 11/28/2020 14:38:58 11/28/2020 16:12:03 Nausea and vomiting 93085674 R11.2 Routine an tenatal care 626096097 Z34.01 [id number] Martha Moreausebastien [facility] [address],[place] [address] 12/26/2020 14:58:41 12/27/2020 14:45:28 Routine care 861635486 Z34.92 Additional precaution tyshawn measures were taken to minimize potential exposure to the Covid-19 virus during this patient s visit, including available hand air support control officer upon arrive, temperatur e check and being asked a series of screening questions. All staff wore face coverings during this encounter, as well as provided additional cleaning and sanitizing of all surfaces, including countertop s, pens, chairs, door handles, light switches, etc, prior to and following the patient s visit. [id number] Olivamargaret Gomez [facility] [address],[place] [address] 12/26/2020 14:58:12 02/20/2021 17:50:56 [id number] [facility] [address],[place] [address] 01/30/2021 15:09:47 01/30/2021 16:57:34 Routine care 835614646 Z34.92 Additional precaution tyshawn measures were taken to minimize potential exposure to the Covid-19 virus during this patient s visit, including available hand air support control officer upon arrive, temperatur e check and being asked a series of screening questions. All staff wore face coverings during this encounter, as well as provided additional cleaning and sanitizing of all surfaces, including countertop s, pens, chairs, door handles, light switches, etc, prior to and following the patient s visit. [id number] Kristen Moss [facility] [address],[place] [address] 01/30/2021 15:09:19 01/30/2021 18:00:07 screening for malformation 723389490 Z36.3 [id number] [facility] [address],[place] [address] 02/27/2021 16:05:10 02/27/2021 17:20:05 Routine care 095497450 Z34.92 Additional precaution tyshawn measures were taken to minimize potential exposure to the Covid-19 virus during this patient s visit, including available hand air support control officer upon arrive, temperatur e check and being asked a series of screening questions. All staff wore face coverings during this encounter, as well as provided additional cleaning and sanitizing of all surfaces, including countertop s, pens, chairs, door handles, light switches, etc, prior to and following the patient s visit. [id number] Delilah Gordon CNM [facility] [address],[place] [address] 03/15/2021 17:38:15 03/16/2021 17:19:29 Routine care 076166484 Z34.93 [id number] Lenora Casey MD [facility] [address],[place] [address] 03/27/2021 17:17:56 03/27/2021 18:30:55 Routine care 429720428 Z34.83 Polyhydramnios 27430739 O40.3XX1 [id number] [facility] [address],[place] [address] 04/12/2021 17:33:13 04/14/2021 10:23:58 Routine care 798353898 Z34.93 [id number] [facility] [address],[place] [address] 04/26/2021 18:30:17 04/27/2021 21:07:43 Routine care 143663443 Z34.93 [id number] [facility] [address],[place] [address] 05/08/2021 11:31:40 05/08/2021 12:27:22 Uterine size for dates discrepancy 667490392 O26.843 Z3A.35 [id number] Lenora Casey MD [facility] [address],[place] [address] 05/08/2021 11:31:59 05/08/2021 14:05:20 Routine care 103095503 Z34.83 [id number] [facility] [address],[place] [address] 05/17/2021 18:04:40 05/18/2021 11:40:56 Routine care 834899491 Z34.93 [id number] [facility] [address],[place] [address] 06/21/2021 15:35:04 06/21/2021 17:06:40 care 781769778 Z39.2 Inadequate flow of breast milk 827390396 O92.4 Health Concerns Section Related Observation LastModified by Organization Detai ls LastModified Time None Recorded Concern Status LastModified by Organization Details LastModified Time None Recorded Advance Directives Directive None Recorded Payers Encounter Date Sequence Insurance Name Policy Number Policy Bright Covered Member ID Bright Member ID Guarantor Name 04/26/2021 1 [employer] [place] 2020 (MEDICAID REPLACEMENT - HMO) Ysabel Disu [id number] Ysabel O Disu 05/08/2021 1 [employer] [place]AC[place] - HMO) Ysabel Disu [id number] Ysabel O Disu 05/08/2021 1 [employer] [place]AC[place] - HMO) Ysabel Disu [id number] Ysabel O Disu 05/17/2021 1 [employer] [place]AC[place] - HMO) Ysabel Disu [id number] Ysabel O Disu 06/21/2021 1 [employer] [place] - [place]MO) Ysabel Disu [id number] Ysabel O Disu Notes Date Note Type Note Provider Name and Address Organization Details Recorded Time 06/21/2021 text/html VisitReported bypatient.Quality:N Context:complicatio ns of : none; feeding choice: breast; good support from partner/family Associated Symptoms:no abnormal bleeding; no vaginal discharge Contraception Plan:declines contraceptionNotes: discussed IUD, nexplanon, pop and nuvaring handouts on each given reviewed se of decreased milk supply and risk of blood clots with ocp Delilah Gordon CNM [address], [place], [address], [facility] 06/21/2021 17:02:43 OBGyn Episode Ob Episode Information Episode Created Date Number of Fetuses Patient Bloodtype Patient rh Status Prepregnancy Weight lbs Domestic Partner Domestic Partner Phone Father Name Technical Training Coordinator Status 11/28/19 21 1 O Positive 189 CLOSED Fetus Data First Name Last Name Admitted to NICU Weight (g) Sex Living Outcome Pediatric Complications Fetus ID Race Codes Race Delivery Type 3146.79 45 M true Full Term 7761 Vaginal Delivery Problems Problem Notes Problem Name Start Date End Date Resolution Snomed Code Not e Herpes simplex 27465678 1+ - hx IgG - valtrex at 36wks Cerebral ventriculomegaly SELFRESOLVED 247607746 [facility] 03/16 - lateral ventricles WNL04/14- Level II WNL Polyhydramnios SELFRESOLVED 27828935 16 .3cm @ 04/14 level II Lukas Calculation Initial Lukas Date Initial Exam Date Initial Exam Provider Initial Ultrasound Date Last Menstrual Period Date Ultra Sound Weeks Gestation 06/06/2021 11/28/2020 11/01/2020 08/30/2020 8 Eighteen To Twenty Week Lukas Update Ultra Sound Date Fundal Height At Umbil Quickening Date Ultra Sound Latest Weeks Gestation Final Lukas Confirmed By Final Lukas Confirmed Date Final Lukas Date Ultra Sound Latest Days Gestation 0 [email or web address] 11/28/2020 06/06/20 21 0 Pre- Flowsheet Flowsheet Date 11/01/2020 Watts Score Blood Edema Fundus Height Fundus Units Glucose Ketones Leukocytes Nitrite Labor Signs Protein Cervic Dilation Cervic Effacement Cervic Station Type Weight in lbs Pre/Post Dialysis Refused BP Diastolic BP Location Tested BP Systolic BP Type Fetus Heart Rate Present Fetus Movement Comments Flowsheet Date 11/28/2020 Watts Score Blood Edema Fundus Height Fundus Units Glucose Ketones Leukocytes Nitrite Labor Signs Protein Cervic Dilation Cervic Effacement Cervic Station 12 Type Weight in lbs Pre/Post Dialysis Refused Weight 184.890746378427 BP Diastolic BP Location Tested BP Systolic BP Type 74 R arm 115 sitting Fetus Heart Rate Present A 145 Fetus Movement Comments this patient is a 30-year-ol d 2 para 1001 at 12 weeks and 6 days gestation presents for initial care. She has significant nausea and vomiting. She was prescribed Zofran. She has a history of 1 term vaginal . Her medical and social history are unremarkable. She will begin routine care. Flowsheet Date 12/26/2020 Watts Score Blood Edema Fundus Height Fundus Units Glucose Ketones Leukocytes Nitrite Labor Signs Protein Cervic Dilation Cervic Effacement Cervic Station Type Weight in lbs Pre/Post Dialysis Refused BP Diastolic BP Location Tested BP Systolic BP Type Fetus Heart Rate Present Fetus Movement Comments Flowsheet Date 12/26/2020 Watts Score Blood Edema Fundus Height Fundus Units Glucose Ketones Leukocytes Nitrite Labor Signs Protein Cervic Dilation Cervic Effacement Cervic Station none 17 neg Type Weight in lbs Pre/Post Dialysis Refused Weight 181.292659884328 BP Diastolic BP Location Tested BP Systolic BP Type 71 100 Fetus Heart Rate Present A 154 Fetus Movement A Yes Comments Doing well. Still has some n ausea. Has not taken zofran. Discussed risk vs benefit. She is going to try b6 and unisom first. Declines AFP. Flowsheet Date 01/30/2021 Watts Score Blood Edema Fundus Height Fundus Units Glucose Ketones Leukocytes Nitrite Labor Signs Protein Cervic Dilation Cervic Effacement Cervic Station Type Weight in lbs Pre/Post Dialysis Refused BP Diastolic BP Location Tested BP Systolic BP Type Fetus Heart Rate Present Fetus Movement Comments Flowsheet Date 01/30/2021 Watts Score Blood Edema Fundus Height Fundus Units Glucose Ketones Leukocytes Nitrite Labor Signs Protein Cervic Dilation Cervic Effacement Cervic Station none trace Type Weight in lbs Pre/Post Dialysis Refused Weight 183.112513186410 BP Diastolic BP Location Tested BP Systolic BP Type 70 111 Fetus Heart Rate Present Fetus Movement A Yes Comments Doing well. Baseline anatomy today. Discussed enlarged ventricles. Will schedule level 2 ultrasound and mfm consult. Having a boy! Again offered AFP. Pt agreed. Flowsheet Date 02/27/2021 Watts Score Blood Edema Fundus Height Fundus Units Glucose Ketones Leukocytes Nitrite Labor Signs Protein Cervic Dilation Cervic Effacement Cervic Station none 26 Type Weight in lbs Pre/Post Dialysis Refused Weight 185.908040767629 BP Diastolic BP Location Tested BP Systolic BP Type 71 110 Fetus Heart Rate Present A 160 Fetus Movement A Yes Comments Visit per Z. Due SNM. Doing well. Some upper leg/thigh cramps at night. Discussed increasing water intake. Appt scheduled with [facility]. Occasional vaginal itching. Affirm collected. Exam normal. Flowsheet Date 03/15/2021 Watts Score Blood Edema Fundus Height Fundus Units Glucose Ketones Leukocytes Nitrite Labor Signs Protein Cervic Dilation Cervic Effacement Cervic Station neg none trace Type Weight in lbs Pre/Post Dialysis Refused Weight 185.562987012207 BP Diastolic BP Location Tested BP Systolic BP Type 74 118 Fetus Heart Rate Present Fetus Movement A Yes Comments PATIENT IS HAVING SOME CRAMP ING AND PRESSURE AND NAUSEA, precautions reviewed, GCT today, f/u 2 weeks ob Flowsheet Date 03/27/2021 Watts Score Blood Edema Fundus Height Fundus Units Glucose Ketones Leukocytes Nitrite Labor Signs Protein Cervic Dilation Cervic Effacement Cervic Station neg none 32 Type Weight in lbs Pre/Post Dialysis Refused Weight 187.163195987078 BP Diastolic BP Location Tested BP Systolic BP Type 71 111 Fetus Heart Rate Present A 140 Fetus Movement A Yes Comments Doing ok. NOt tolerating PNV , but taking iron and we discussed a healthy diet. GCT wnl. FItted for maternity belt. Follow up with MFM on 04/14, on 03/16 noted to have poly of 27 but lateral ventricles no longer enlarged. Worried about finding childcare aide for their 3yo when she is in labor. Flowsheet Date 04/12/2021 Watts Score Blood Edema Fundus Height Fundus Units Glucose Ketones Leukocytes Nitrite Labor Signs Protein Cervic Dilation Cervic Effacement Cervic Station neg none 32 trace Type Weight in lbs Pre/Post Dialysis Refused Weight 188.026620563525 BP Diastolic BP Location Tested BP Systolic BP Type 73 116 Fetus Heart Rate Present A 134 Fetus Movement A Yes Comments patient states that having b ack pain, contractions, discharge, and swelling, using maternity belt, reviewed precautions pt would like IOL at 39 weeks, would be easier for her to deliver while daughter is at day care Flowsheet Date 04/26/2021 Watts Score Blood Edema Fundus Height Fundus Units Glucose Ketones Leukocytes Nitrite Labor Signs Protein Cervic Dilation Cervic Effacement Cervic Station neg none 37 trace Type Weight in lbs Pre/Post Dialysis Refused Weight 191.106572922008 BP Diastolic BP Location Tested BP Systolic BP Type 74 115 Fetus Heart Rate Present A 155 Fetus Movement A Yes Comments patient states that having s ome back pain and contractions. precautions reviewed, growth next visit s>d, plan iol on may 30 not scheduled with LD yet Flowsheet Date 05/08/2021 Watts Score Blood Edema Fundus Height Fundus Units Glucose Ketones Leukocytes Nitrite Labor Signs Protein Cervic Dilation Cervic Effacement Cervic Station Type Weight in lbs Pre/Post Dialysis Refused BP Diastolic BP Location Tested BP Systolic BP Type Fetus Heart Rate Present Fetus Movement Comments Flowsheet Date 05/08/2021 Watts Score Blood Edema Fundus Height Fundus Units Glucose Ketones Leukocytes Nitrite Labor Signs Protein Cervic Dilation Cervic Effacement Cervic Station neg 2+ 37 trace 3cm 70% -3 Type Weight in lbs Pre/Post Dialysis Refused Weight 197.726145778158 BP Diastolic BP Location Tested BP Systolic BP Type 78 121 Fetus Heart Rate Present A 150 Fetus Movement A Yes Comments Doing well except some back pain. GBS done and discussed. Valtrex to start. Labor precautions given. US todya 56%. Flowsheet Date 05/17/2021 Watts Score Blood Edema Fundus Height Fundus Units Glucose Ketones Leukocytes Nitrite Labor Signs Protein Cervic Dilation Cervic Effacement Cervic Station neg trace trace Type Weight in lbs Pre/Post Dialysis Refused Weight 198.569962484657 BP Diastolic BP Location Tested BP Systolic BP Type 80 129 Fetus Heart Rate Present Fetus Movement A Yes Comments patient states that having b ack pain, pelvic pain and pressure, contractions, discharge, and swelling. Menstrual History Last Menstrual Date Menses Monthly On Bcp Conception Prior Menses Frequency Hcg Plus Date Menarche Onset Age 1108/30/2020 Genetic Screening And Infection History Question Response Note Mental Retardation/Autism false Patient's Age Will Be 35 Years Or Older At Estim ated Date of Delivery false Thalassemia (Samoan, Canadian, Mediterranean, Or Background): MCV < 80 false Neural Tube Defect (Meningomyelocele, Spina Bifi da, Or Anencephaly) false Congenital Heart Defect false Down Syndrome false Blas-Sachs (eg, Sikhism, Cajun, Chinese-Traverse) f alse Eboni Disease false Sickle Cell Disease Or Trait () false Hemophilia Or Other Blood Disorders false Muscular Dystrophy false Cystic Fibrosis false Angelina's Chorea false Intellectual Disability/Autism false If Yes, Was Person Tested For Fragile X? false Other Inherited Genetic Or Chromosomal Disorder false Maternal Metabolic Disorder (eg, Type 1 Diabetes , PKU) false Patient Or Baby's Father Had A Child With Defects Not Listed Above false Recurrent Loss, Or A Stillbirth false Medications (including Suppl ements, Vitamins, Herbs, OTC Drugs), Illicit/Recreational Drugs, Alcohol false If Yes, Agent(s) And Strength/Dosage false Any Other Genetic History false Live With Someone With TB Or Exposed To TB false Patient Or Partner Has History Of Genital Herpes false Rash Or Viral Illness Since Last Menstrual Perio d false History Of STD, Gonorrhea, Chlamydia, HPV, Syphi lis false Other Infection History false History of HIV false History of Hepatitis false Prior GBS-infected child false Hemoglobinopathy Or Carrier false Other Structural Defect false Recent Travel History Outside of Country false Delivery Information Delivery Date Delivery Type Labor Anesthesia Weeks Gestation Incision Type Labor Labor Length Hrs Delivered By Post Complications Tubal Sterilization Discharge Date Comments 1 [facility] idural 37.5 false Delilah Gordon CNM Polyhydra mnios, HSV, TIGG CMV Parvo Discharge Information Feeding Method Contraceptive Method Maternal HG B and HCT Levels Ob Episode Information Episode Created Date Number of Fetuses Patient Bloodtype Patient rh Status Prepregnancy Weight lbs Domestic Partner Domestic Partner Phone Father Name Technical Training Coordinator Status 11/01/19 21 1 CLOSED Fetus Data First Name Last Name Admitted to NICU Weight (g) Sex Living Outcome Pediatric Complications Fetus ID Race Codes Race Delivery Type 2891.64 9 F Full Term 7049 Vaginal Delivery Lukas Calculation Initial Lukas Date [...] Complications Tubal Sterilization Discharge Date Comments 8 38 Discharge Information Feeding Method Contraceptive Method Maternal HG B and HCT Levels
--- OUTSIDE RECORDS SUMMARY | 2025-02-05 15:12 | XMS_ITS | Data Portability ---
Author Organization [place] - [facility] [employer], Main Office Address [address] [place] [address] Assessment Encounter Date Assessment Date Assessment LastModified by Organization Details LastModified Time 07/23/2023 07/23/2023 Assessment: Moderate OSAHS, AHI = 19 PLMD Hypoventilation Plan: The following were reviewed and explained to the patient: primary care/referral note [facility] home sleep study 07/16/23 AHI = 19, supine AHI = 21 General information on sleep disordered breathing, evaluation of sleep disordered breathing, treatment with PAP therapy, and living with PAP therapy were covered. PSG is medically necessary to determine the management of sleep apnea. We discussed with the patient the impact of weight on: Sleep disordered breathing We discussed with the patient the benefit of PAP therapy on: Sleep disordered breathing Educated the patient on sleep hygiene measures. Relaxing rituals to rest easy, understanding foods with positive and negative impact on sleep, creating a peaceful sleep environment, timing of exercise, using herbal sleep aids, and practicing sleep-friendly meditation were covered. To determine how much sleep is needed, the patient will assess where (s)he falls on the spectrum, examine what lifestyle factors such as work schedules and stress are affecting the quality and quantity of sleep. In general, adults need 7-9 hours of sleep. Educated the patient regarding foods that promote sleep. These include but are not limited to cherries, bananas, toast, oatmeal, and warm milk. Educated the patient regarding foods and drinks to avoid before bedtime. These include but are not limited to aged cheese, chocolate, spicy foods, tomato-based sauces, soy, ginseng tea and processed meat. Advocated influenza vaccination annually and pneumonia vaccination in 2053. Advocated weight loss through diet and exercise. Patient's ideal body weight according to height and gender is up to 130 lbs. Encouraged patient to adjust caloric intake to maintain/achieve ideal body weight, emphasizing on fruits, vegetables, whole grains, and fat-free or low-fat products. These include lean meats, poultry, fish, beans, eggs, and nuts and foods that are low in saturated fats, trans-fats, cholesterol, salt (sodium), and glycemic index. Stressed the importance of regular exercise up to the patient's capacity limits. In this case, we recommend 20 min daily walking, 2 days a week of resistance training. Patient to monitor BP daily and bring records to PCP for further management. Follow-up: 1 week after titration sleep study [email or web address] Not available 07/23/2023 15:07:11 Plan of Treatment Reminders Order Date Submit Date Provider Last Modified By Organization Details Last Modified Time Details Appointments None recorded. Lab None recorded. Referral None recorded. Procedures None recorded. Surgeries None recorded. Imaging polysomnog lennox, titration study - no auth required 2022 023 [email or web address] 25 [facility], [address] [place], [address], 14:55:14 Medication Orders None recorded. Patient TargetsNo targets recorded. Patient InstructionsNo instructions recorded. Reason for Referral None Reported. Results Created Date Observation Date Name Description Value Unit Range Abnormal Flag Note LastModifiedBy Organization Detail LastModifiedTime 07/22/2007/16/2023 home sleep study No observ ation record ed. [facility] Not Available 2022 20:18:15 Result Notes None recorded. Problems Name Problem SNOMED Code Status Onset Date Resolution Date Notes Provider Name and Address Organization Details Recorded Time Obstructive sleep apnea syndrome [id number] Active 023 Danish Conroy MD [address] [facility], [address], [place], [address] , [facility] [employer] [facility] 14:55:48 Notes:Medical History: Bilat eral tinnitus Delayed sleep phase syndrome Obesity with mod OSAHS, AHI = 19, 07/16/23 Procedure History: None Occupational History: Student Problem Notes None recorded. Procedures Surgical History None recorded. Imaging Results Imaging Date Name Status LastModified by Organiz ation Details LastModified Time 07/16/2023 home sleep study completed [facility] Information not available 07/22/2023 20:18:15 Procedure Notes None recorded. Medical Equipment None Reported. Allergies No known drug allergies Medications Name Sig Start Date Stop Date Status Note LastModified by Organization Details LastModified Time cetirizine 10 mg tablet 11/14 completed Not Available Not Available Not Available azithromycin 250 mg tablet 11/14 completed Not Available Not Available Not Available fluconazole 150 mg tablet 11/14 completed Not Available Not Available Not Available terconazole 0.8 % vaginal cream 11/14 completed Not Available Not Available Not Available ondansetron 8 mg disintegrati ng tablet 11/14 completed Not Available Not Available Not Available fluticasone propionate 50 mcg/actuatio n nasal spray,suspen bhanu SPRAY 2 SPRAYS INTO EACH NOSTRIL DAILY 07/23 completed Not Available Not Available Not Available topiramate 50 mg tablet 07/23 completed Not Available Not Available Not Available Tylenol active Not Available Not Avail able Not Available multivitamin active Not Available Not Available Not Available Vitals Date Recorded Body mass index (BMI) Body height Body temperature Body weight Provider Name and Address Organization Details Last Updated DateTime 11/14/2021 35.5 kg/m2 162.56 cm 97.9 [degF] 14103.62 g Not Available [facility] 12/19/2022 22:06:02 Date Recorded Body height Body mass index (BMI) Body weight Body temperature Heart rate Oxygen saturation Oxygen saturation in Arterial blood by Pulse oximetry Systolic blood pressure Diastolic blood pressure Provider Name and Address Organization Details Last Updated DateTime 162.56 cm 35.7 kg/m2 40403.2 1 g 97.9 [degF] 63 /min 97 % 97 % 108 mm[Hg] 72 mm[Hg] Fátima Rosenberg MA H[facility]anna [facility] 14:39:40 Date Recorded Heart rate Respiratory rate Provider N amelia and Address Organization Details Last Updated DateTime 07/23/2023 63 /min 15 /min Danish Conroy MD [address] [place] [address], [facility] [address], [place], [address], [place] [facility] [employer] 07/23/2023 14:47:38 Social History Question Answer Notes LastModified by Organizat ion Details LastModified Time Tobacco Smoking Status Never Smoker Not Available [facility] 12/19/2022 22:05:42 What Is Your Level Of Alcohol Consumption? None Information not available 07/23/2023 What Is Your Level Of Caffeine Consumption? None Information not available 07/23/2023 In The 14 Days Before Symptom Onset, Have You Had Close Contact With A Laboratory-confir med COVID-19 While That Case Was Ill? No [id number] Information not available 12/19/2022 In The 14 Days Before Symptom Onset, Have You Had Close Contact With A Person Who Is Under Investigation For COVID-19 While That Person Was Ill? No [id number] Information not available 12/19/2022 Are You Currently Employed? No Information not available 07/23/2023 What Type Of Diet Are You Following? REGULAR Currently Fasting Information not available 07/23/2023 Do You Have An Electrostatic Air Filter? No Information not available 07/23/2023 Have You Been Exposed To Chemicals Or Toxins? No Information not available 07/23/2023 Do You Have A Humidifier? Yes Information not available 07/23/2023 Do You Have Moisture Problems In Your Home? No Information not available 07/23/2023 What Was The Date Of Your Most Recent Tobacco Screening? 07/23/2023 Information not available 07/23/2023 Do You Have Any Pets? No Information not available 07/23/2023 Do You Use Your Seat Belt Or Car Seat Routinely? Yes Information not available 07/23/2023 Do You Have Smoke And Carbon Monoxide Detectors In Your Home? Yes Information not available 07/23/2023 Are You Passively Exposed To Smoke? No Neighbors Smoke, Can Smell It At Home Information not available 07/23/2023 Do You Feel Stressed (tense, Restless, Nervous, Or Anxious, Or Unable To Sleep At Night)? [id number] Information not available 07/23/2023 Do You Use Any Illicit Or Recreational Drugs? No [id number] Information not available 12/19/2022 Do You Use Sunscreen Routinely? No Information not available 07/23/2023 Have You Recently Traveled Abroad? No [id number] Information not available 12/19/2022 Do You Have Any Dietary Restrictions? No Information not available 07/23/2023 Sex: Unknown Functional Status Question Answer Note LastModified by Organizat ion Details LastModified Time What is your exercise level? Occasional Information not available 07/23/2023 Mental Status None recorded. Family History Relationship Description Onset Age of this Age Resolved Age Notes LastModified by Organization Details LastModified Time Mother Hypertensive disorder [email or web address] Not available 2022 14:59:36 Mother Depressive disorder [email or web address] Not available 2022 14:59:44 Medical History Condition Response MRSA N SLEEP APNEA N ALLERGIES/HAYFEVER N LUNG DISEASE/DISORDER N HISTORY OF DRUG ABUSE N INSOMNIA N COPD N RADIATION / CHEMOTHERAPY N HIGH CHOLESTEROL / HYPERLIPIDEMIA N HYPERTHYROIDISM N BLOOD DISEASES N EAR OR HEARING PROBLEMS N HYPOTHYROIDISM N SHINGLES N DEPRESSION (INCLUDING POST ) N HAVE YOU BEEN HOSPITALIZED OR SEEN IN E ER IN THE PAST YEAR ? N STROKE/TIA N ULCERS N OBESITY N ANEURYSM N HISTORY WITH COMPLICATIONS WITH ANESTHES IA ? N USE OF BLOOD THINNERS N NO SIGNIFICANT PAST MEDICAL HISTORY N DIABETES, TYPE N PARATHYROID DISEASE N ENT N SEASONAL ALLERGIES N HEARTBURN / REFLUX N HEPATITIS / LIVER DISEASE N SLEEP DISORDER N SEIZURES/EPILEPSY N HEADACHES/MIGRAINES N CHF N PACEMAKER N DIZZINESS N HEART DISEASE/HEART PROBLEMS N AIDS/HIV N FRACTURES N HYPERTENSION N CANCER: SPECIFY N TOURETTE'S N BLOOD TRANSFUSION N ANEMIA/BLOOD DISORDER N ANESTHESIA COMPLICATIONS N CHRONIC EAR INFECTIONS N TUBERCULOSIS N Gynecological HistoryNo gynecological history recorded. Obstetrics History GPAL:G 0 P 0 0 0 0 Past Encounters Encounter ID Performer Location Encounter Start Date Encounter Closed Date Diagnosis/Indication Diagnosis SNOMED-CT Code Diagnosis ICD10 Code Diagnosis Note [id number] [facility] [place] [address] [place] [address] 11/14/2021 00:00:00 11/14/2021 10:54:21 [id number] Danish Conroy MD [facility] [place] [address] [facility] [address] [place] [address] 07/23/2023 13:59:21 07/23/2023 15:11:01 Obstructive sleep apnea syndrome 60125308 G47.33 G47.30 G47.36 G47.61 Health Concerns Section Related Observation LastModified by Organization Detai ls LastModified Time None Recorded Concern Status LastModified by Organization Details LastModified Time None Recorded Advance Directives Directive None Recorded Payers Encounter Date Sequence Insurance Name Policy Number Policy Bright Covered Member ID Bright Member ID Guarantor Name 07/23/2023 1 [employer] BETTER HE[employer] OF [place] ON OR AFTER 09/20/2020 (MEDICAID REPLACEMENT - HMO) Ysabel Disu [id number] Ysabel Disu Notes Date Note Type Note Provider Name and Address Organization Details Recorded Time 07/23/2023 text/html Primary care/Referring provider: Ruddy Jones MD During the [facility] home sleep study on 07/16/23, AHI = 19, supine AHI = 21. At home, the patient sleeps from 1 am to 5 am and wakes up with an alarm. Snoring: moderate, since . Snorting: no Choking: no Coughing: no Gasping: no Gagging: no Sighing: no Witnessed apnea: yes Twitching or jerking of leg(s), arm(s), body, head: yes Teeth grinding: no Teeth clenching: no Sleeptalking: no Sleepwalking: no Sleep crying: no Bedwetting: no Tongue/lip/gum/reece k biting: no Sleeping with open mouth: yes Sleep paralysis: no Hypnagogic hallucinations: no Hypnopompic hallucinations: no Vivid dreams: yes Difficulty with sleep onset: no Difficulty with sleep maintenance: yes Sleep interruptions: nocturia x 3 Patient wakes up with: fatigue, dexterity impairment Daytime cataplexy: no Morning hypersomnolence: no Afternoon hypersomnolence: yes Caffeine sources in diet: none Associated medical and psychiatric conditions: Congestive heart failure: no Coronary artery disease: no Myocardial infarction: no Hypertension: no Stroke: no Bronchial asthma: no Chronic obstructive pulmonary disease: no Depression: no Bipolar disorder: no Anxiety: no Panic disorder: no Posttraumatic stress disorder: no Attention deficit and hyperactivity disorder: no Obsessive Compulsive disorder: no Schizophrenia: no Schizoaffective disorder: no Personality disorder: no Chronic analgesic use: no Chronic sedative/hypnotic use: no EPWORTH SLEEPINESS SCALE (ESS) CHANCE OF DOZING SCORE 0 = would never doze 1 = slight chance of dozing 2 = moderate chance of dozing 3 = high chance of dozing SITUATION AND CHANCE OF DOZING Sitting and reading - 3 Watching television - 3 Sitting inactive in a public place (e.g. a theater or meeting) - 2 As a passenger in a car for an hour without a break - 3 Lying down to rest in the afternoon when circumstances permit - 3 Sitting and talking to someone - 2 Sitting quietly after lunch without alcohol - 2 In a car, while stopped for a few minutes in the traffic - 0 TOTAL SCORE 18 Subjectively, patient has a high chance of dozing. Danish Conroy MD [address] [address], [place], [address], [place] [facility] 07/23/2023 15:07:56 OBGyn Episode No OBEpisode recorded.
--- OUTSIDE RECORDS SUMMARY | 2025-02-05 15:12 | XMS_ITS | Data Portability ---
Author Organization [place] [facility]- Address # [address] [facility] [place] [address] Assessment No assessment recorded. Plan of Treatment Reminders Order Date Submit Date Provider Last Modified By Organization Details Last Modified Time Details Appointments None record ed. Lab None record ed. Referral None record ed. Procedures None record ed. Surgeries None record ed. Imaging None record ed. Medication Orders None record ed. Patient TargetsNo targets recorded. Patient InstructionsNo instructions recorded. Reason for Referral None Reported. Problems No Known Problems Medical Equipment None Reported. Allergies No known drug allergies Medications Not known to be on any medication Vitals None Recorded Social History None recorded. Functional Status None recorded. Mental Status None recorded. Family History Nothing Reported. Medical History No medical history recorded. Gynecological HistoryNo gynecological history recorded. Obstetrics History GPAL:G 0 P 0 0 0 0 Past Encounters Encounter ID Performer Location Encounter Start Date Encounter Closed Date Diagnosis/Indication Diagnosis SNOMED-CT Code Diagnosis ICD10 Code Diagnosis Note [id number] Elise Martin [facility] [address] [place] [id number] 10/23/2024 11:58:33 11/23/2024 15:16:00 support 153077575 Z39.1 Health Concerns Section Related Observation LastModified by Organization Detai ls LastModified Time None Recorded Concern Status LastModified by Organization Details LastModified Time None Recorded Advance Directives Directive None Recorded Payers Encounter Date Sequence Insurance Name Policy Number Policy Bright Covered Member ID Bright Member ID Guarantor Name 10/23/2024 1 [employer] [facility]TER [facility] ON OR AFTER 09/20/2020 (MEDICAID REPLACEMENT - HMO) Ysabel Roy [id number] Ysabel Roy Notes Date Note Type Note Provider Name and Address Organization Details Recorded Time 10/23/2024 text/html LactationReporte d bypatient.Notes: s name and : Yanira Roy, 07/10/2024. Infant's household appliances service technician: Dr. Black, [facility] complications during ? None. Any complications during delivery? none, vaginal, 39 weeks gestation, AMH. Infant's weight gain as of now? Per mom, is gaining weight well.For mom: Any medical conditions? Since delivery, mom has had two episodes of chest pain resulting in ED visits. Mom states she has cardiology appt today. On any prescribed or OTC medication? MVI. Any previous injuries or surgeries to either breasts or spine? None. Previous BF hx? Two older children, BF to two yrs old. Pump use? None. At the beginning of today s consultation, mom expressed wanting to breastfeed again. She is concerned her infant is refusing breast. She states infant nursed fairly well the first 2 weeks after delivery, however formula was being supplemented at that time. Per mom, was brought to breast one month ago. Mom last expressed BM one month ago as well. Mom then attempted to nurse on L breast in cross cradle position. Mom first hand expressed some milk for infant, however, infant did not latch. Education on expressing breastmilk was given, stating the more the milk is expressed, the more it will signal her body to create more. Education on power pumping was given. It was advised to pump for an average of 15 minutes every 2 hours to build milk supply and power pump once a day. Building supply will take time and patience. Mom expressed understanding. Dad stated mom is eating cookies and asked if there was anything else mom could consume to build supply. It was stated the [place] to building milk supply was to continue expressing milk and expressing milk often. Both mom and dad expressed understanding. It was asked if mom has previously used a nipple shield. She replied no. It was stated it may help the transition from bottle to breast and may only be temporary use. To occasionally offer breast without shield. Education was given on proper nipple shield application and the need to pump for 10 minutes after to ensure proper emptying. Mom expressed understanding. Dad stated they are aware of the importance of BM for , however, was any research on the use of formula being okay. I directed him to [facility] for website for research articles. Dad expressed gratitude. Upon leaving, mom wanted to speak with me privately. She expressed concern for her BF and baby. She reported her MIL has been staying with them since delivery and is completely against . ? Ysabel stated if she were to go into another room to BF,, LAURA would follow, take baby and feed the baby formula. She states she tried talking with her about her concerns, however he becomes angry with her. She recently discovered LAURA has been feeding infant piping hot bottles of formula, too hot for an adult to consume. Ysabel reported infant has sores in her mouth and would like infant s throat assessed, however, she has not brought this to the household appliances service technician s attn as the dad is at [facility] and she knows he would quickly become upset. Empathy was expressed. Mom aware to call our office with any other questions, concerns, or statements. She expressed gratitude and understanding. For infant s safety, Dr. Black was called and made aware of mom s concerns. Time spent with parents and : 60 minutes. Time spent chartin minutes Elise briones [facility], 11/19/2024 14:32:01 OBGyn Episode No OBEpisode recorded.
--- NOTE | 2025-02-05 15:14 | ECG_ITS ---
Test Date: 2025-02-05 15:22:58 Measurements Intervals [place] Rate: 76 P: 31 NM: 155 QRS: 8 QRSD: 105 T: 4 QT: 355 QTc: 400 Interpretive Statements SINUS RHYTHM VOLTAGE CRITERIA FOR LVH ST ELEVATION IN HIGH LATERAL LEADS- PROBABLY EARLY REPOLARIZATION ABNORMALITY BORDERLINE ST-T WAVE ABNORMALITY- INFERIOR LEADS BASELINE WANDER- I, II, AVR, AVL, AVF BORDERLINE ECG Compared to ECG 07/25/2024 03:18:40 Early repolarization STILL PRESENT Electronically Signed On 02-06-2025 07:11:29 CDT by Kane Mike D.O.
[2025-02-05 15:28] VITALS: BP 110/68; PULSE 84; RESP 18; TEMP 36.4; O2SAT 100
[2025-02-05 15:35] LABS: Basophils Percent Auto 0.5 % (0.2-1.2); Eosinophils Absolute Auto 0.4 K/mm3 (0-0.3); Eosinophils Percent Auto 4.6 % (0-4.4); Hematocrit 40.5 % (37.0-47.0); Hemoglobin 12.4 g/dL (12.0-15.0); Immature Granulocyte Absolute 0.02 K/mm3 (0.00-0.031); Immature Granulocyte Percent A 0.2 % (0-0.5); Lymphocytes Absolute Auto 2.47 K/mm3 (0.9-3.2); Lymphocytes Percent Auto 28.3 % (18.3-44.2); Mean Corpuscular HGB Conc 30.6 g/dl (32-36); Mean Corpuscular Hemoglobin 27.4 pg (26-34); Mean Corpuscular Volume 89.4 fl (80-100); Mean Platelet Volume 8.8 fl (7.4-10.4); Monocytes Absolute Auto 0.8 K/mm3 (0.1-0.6); Monocytes Percent Auto 9.3 % (2.6-8.5); Neutrophils Percent Auto 57.1 % (45.5-73.1); Platelet Count Result 466 k/mm3 (150-375); Red Blood Count 4.53 M/mm3 (4.2-5.4); Red Cell Distribution Width 15.1 % (11.5-14.5); White Blood Count 8.7 K/mm3 (4.5-10.0)
[2025-02-05 15:47] LABS: Alanine Aminotransferase 26 U/L (6-35); Albumin Level 4.4 g/dL (3.5-5.1); Alkaline Phosphatase 76 U/L (38-126); Anion Gap 8 mmol/L (4-12); Aspartate Amino Transferase 29 U/L (14-36); Bilirubin,Total 0.2 mg/dL (0.2-1.3); Blood Urea Nitrogen 11 mg/dL (7-17); Calcium 9.1 mg/dL (8.4-10.2); Carbon Dioxide 27 mmol/L (22-30); Chloride 103 mmol/L (98-107); Estimated CRCL calculation 110 ml/min; Estimated Glomerular Filt Rate > 60; Glucose 81 mg/dL (65-110); Lipase 54 U/L (23-300); Potassium 4.2 mmol/L (3.4-5.0); Sodium 138 mmol/L (137-145)
[2025-02-05 15:53] LABS: Prothrombin Time 13.2 Seconds (11.1-14.7)
[2025-02-05 15:54] LABS: Partial Thromboplastin Time 29.4 Seconds (22.3-36.8)
[2025-02-05 15:59] LABS: Troponin I < 0.012 ng/mL (0.000-0.034)
--- NOTE | 2025-02-05 16:58 | ED.CHESTPAIN ---
HPI - Chest Pain General Chief Complaint: Chest Pain Stated Complaint: chest and low back pain, weakness Time Seen by Provider: 02/05/25 16:48 Source: patient Mode of arrival: ambulatory Limitations: no limitations History of Present Illness HPI narrative: 35-year-old otherwise healthy here with the complaints of chest pain low back pain . Bilateral feet pain for quite some time. Patient states that she has seen house painting instructor several times for this pain and now she is wearing a loop monitor she denies any shortness of breath. Denies any fever or chills. complaint: chest pain Onset (ago): week(s) Timing of current episode: constant Pain radiation: none Severity: moderate Quality: aching Relieving factors: nothing Exacerbating factors: nothing Risk Factors Coronary artery disease risk factors: none Related Data Home Medications ?Medication ?Instructions ?Recorded ?Confirmed ?Last Taken ?Type docusate sodium 100 mg capsule 100 mg PO Q12H 07/25/24 07/25/24 Unknown History Allergies Allergy/AdvReac Type Severity Reaction Status Date / Time No Known Allergies Allergy Verified 02/05/25 15:10 Review of Systems Review of Systems: All systems reviewed & are unremarkable except as noted in HPI and below Constitutional: Constitutional: Reports no additional constitutional complaints Eyes: Eyes: Reports no additional eye complaints ENT: Reports system reviewed and no additional complaints, except as documented Cardiovascular: Cardiovascular: Reports no additional cardiovascular complaints Gastrointestinal: Gastrointestinal: Reports no additional gastrointestinal complaints Musculoskeletal: Musculoskeletal: Reports as per HPI Neurologic: Reports system reviewed and no additional complaints, except as documented PMFSH Past Medical History Medical History Patient denies significant medical history Family History Family History Other Unknown family medical history Social History Social History Smoking status: Never smoker Second hand tobacco smoke exposure: No Substance use: never Substance use type: does not use Gender identity (if verbalized by the patient): Female Sexual Orientation (if Verbalized by the Patient): Straight or Heterosexual Spiritual care concerns: No Exam Narrative: GENERAL: Well-appearing, well-nourished, and in no acute distress. HEAD: Normocephalic, atraumatic. EYES: PERRLA and EOMI. ENT: Nares clear, no rhinorrhea or epistaxis. Mucous membranes moist. NECK: Supple. CHEST: Clear to auscultation. No respiratory distress. HEART: Regular rate and rhythm. No murmur heard. Normal peripheral pulses. ABDOMEN: Soft, nontender, nondistended, normal active bowel sounds. EXTREMITIES: Normal range of motion. No edema. SKIN: Warm, dry, no rash. NEURO: No focal deficits. Alert and oriented x3. PSYCH: Normal mood and affect. Course Course Emergency Course: Informed patient about her lab work, EKG and chest x-ray findings cause of her pain is unknown at this time. Advised her to continue go to follow-up with house painting instructor. Recommended her to take ibuprofen for low back pain Vital Signs Vital signs: Vital Signs Temperature 36.4 C L 02/05/25 15:28 Pulse Rate 84 02/05/25 15:28 Respiratory Rate 18 02/05/25 15:28 Blood Pressure 110/68 02/05/25 15:28 Pulse Oximetry 100 02/05/25 15:28 Temperature 36.4 C L 02/05/25 15:28 Pulse Rate 84 02/05/25 15:28 Respiratory Rate 18 02/05/25 15:28 Blood Pressure 110/68 02/05/25 15:28 Pulse Oximetry 100 02/05/25 15:28 MDM - Chest Pain Lab Data 02/05/25 15:28 02/05/25 15:28 Labs: Lab Results 02/05/25 Range/Units 15:28 WBC 8.7 (4.5-10.0) K/mm3 RBC 4.53 (4.2-5.4) M/mm3 Hgb 12.4 (12.0-15.0) g/dL Hct 40.5 (37.0-47.0) % MCV 89.4 (80-100) fl MCH 27.4 (26-34) pg MCHC 30.6 L (32-36) g/dl RDW 15.1 H (11.5-14.5) % Plt Count 466 H (150-375) k/mm3 MPV 8.8 (7.4-10.4) fl Immature Gran % (Auto) 0.2 (0-0.5) % Neut % (Auto) 57.1 (45.5-73.1) % Lymph % (Auto) 28.3 (18.3-44.2) % Wells % (Auto) 9.3 H (2.6-8.5) % Eos % (Auto) 4.6 H (0-4.4) % Baso % (Auto) 0.5 (0.2-1.2) % Lymph # (Auto) 2.47 (0.9-3.2) K/mm3 Wells # (Auto) 0.8 H (0.1-0.6) K/mm3 Eos # (Auto) 0.4 H (0-0.3) K/mm3 Baso # (Auto) 0.0 (0.0-0.1) K/mm3 Abs Immat Gran (auto) 0.02 (0.00-0.031) K/mm3 Absolute Neuts (auto) 5.0 (1.3-6.7) K/mm3 Absolute Nucleated RBC 0.000 (0.0-0.012) K/mm3 Nucleated RBC % 0.0 (0.0-0.2) % PT 13.2 (11.1-14.7) Seconds INR 1.0 APTT 29.4 (22.3-36.8) Seconds Sodium 138 (137-145) mmol/L Potassium 4.2 (3.4-5.0) mmol/L Chloride 103 (98-107) mmol/L Carbon Dioxide 27 (22-30) mmol/L Anion Gap 8 (4-12) mmol/L BUN 11 D (7-17) mg/dL Creatinine 0.68 L (0.7-1.0) mg/dL Estim Creat Clear Calc 110 ml/min Estimated GFR > 60 (59 - ) Glucose 81 (65-110) mg/dL Calcium 9.1 (8.4-10.2) mg/dL Total Bilirubin 0.2 (0.2-1.3) mg/dL AST 29 (14-36) U/L ALT 26 (6-35) U/L Alkaline Phosphatase 76 (38-126) U/L Troponin I < 0.012 (0.000-0.034) ng/mL Total Protein 8.0 (6.3-8.2) g/dL Albumin 4.4 (3.5-5.1) g/dL Lipase 54 (23-300) U/L Imaging Data Radiologist's impression: ITS Impressions Chest X-Ray 02/05/25 15:37 IMPRESSION: 1: NO ACUTE CARDIOPULMONARY DISEASE. ECG Data EKG #1: ECG completion date: 02/05/25 ECG completion time: 15:22 EKG Interpretation: normal rate (76), sinus rhythm, no ectopy, NL axis and no acute changes Discharge Plan Discharge Clinical Impression: Atypical chest pain Patient Disposition: Home Condition: Stable Instructions: Chest Pain (ED) Additional Instructions: Can take ibuprofen for low back pain. Continue home medications. , follow-up with your house painting instructor . Patient Language: Kazakh Prescriptions: No Action PNV-DHA 27 mg iron-1 mg -300 mg capsule 1 cap PO DAILY Qty: 90 0RF docusate sodium 100 mg capsule 100 mg PO Q12H cephalexin 500 mg capsule 500 mg PO Q12H Qty: 10 0RF Follow-up/Referrals: Ruddy Jones MD [Primary Care Provider] -
[2025-02-05 17:01] VITALS: PULSE 84; O2SAT 100
[2025-02-05 17:03] VITALS: BP 124/65; PULSE 85; RESP 25; O2SAT 100
--- OUTSIDE RECORDS SUMMARY | 2025-02-05 17:20 | XMS_ITS | Clinical Summary ---
Author Organization [facility] at the [facility] Address [address] [place] [address] Care Team Providers Care Group Counselor Name Role Phone Ruddy Jones MD Primary Care Provider [phone] Allergies No known active allergies Medications multivitamin [...] Description 02/02/2025 11:30 AM CDT Anc[address] Procedure [facility] Cardiology [address] [facility] [address] [place] [address] Palpitations 02/02/2025 10:30 AM CDT Office Visit [facility] Cardiology [address] [facility] [address] [place] [address] Betty Bishop NP Need for lipid screening (Primary Dx); Other chest pain; Palpitations; Shortness of breath 11/16/[address] [facility] Medical [facility] Cardiology [facility] [facility] [address], [place] [address] Jc Lazaro MD from Last [...] often do you attend chur ch or gnosticism services? More than 4 times per year 06/29/2024 Do you belong to any clubs o r organizations such as jainism groups, unions, fraternal or athletic groups, or [...] staff should administer the PHQ-9) 0 07/10/2024 [facility] [place] of Occupat ional Health - Occupational Stress [...] any time in the past 12 m [facility], were you homeless or living in a mcc (including now)? No 07/10/2024 Personal Safety Answer [...] Last [address] [place] [address] [facility] Advance Directives For more information, please contact: [phone] * Full Code (Latest Code Status on [...] ca se of cardiopulmonary arrest Care Teams Group Counselor Relationship Specialty Start Date End Date Ruddy Jones MD [address] [facility] [place] [address] PCP - General Internal Medicine 04/10/23
--- OUTSIDE RECORDS SUMMARY | 2025-02-05 17:20 | XMS_ITS | Referral Summary ---
Author Organization [facility] at the [facility] Address [address] [place] [address] Care Team Providers Care Commercial Litigation Paralegal Name Role Phone Ruddy Jones MD Primary Care Provider Encounters Date Type Department Care Team Description 02/02/2025 11:30 AM CDT Ancillary Procedure [facility] Cardiology [address] [place] [address] [place] [phone] Palpitations 02/02/2025 10:30 AM CDT Office Visit [facility] Cardiology [address] [place] [address] [place] [phone] Betty Bishop NP Need for lipid screening (Primary Dx); Other chest pain; Palpitations; Shortness of breath 11/16/2024 Telephone [facility] Cardiology [address] [facility] [address] [place] [phone] Jc Lazaro MD from Last 3 [...] How often do you attend chur or sikhism services? More than 4 times per year 06/29/2024 Do you belong to any clubs o r organizations such as protestant groups, unions, fraternal or athletic groups, or [...] staff should administer the PHQ-9) 0 07/10/2024 [facility] [place] of Occupat ional Health - Occupational Stress [...] any time in the past 12 m [facility], were you homeless or living in a m[facility]p (including now)? No 07/10/2024 Personal Safety Answer [...] Last [address] [place] [address] [facility] [employer] [facility] Advance Directives For more information, please contact: [phone] * Full Code (Latest Code Status on [...] ca se of cardiopulmonary arrest Care Teams Commercial Litigation Paralegal Relationship Specialty Start Date End Date Ruddy Jones MD [address] [place] [place] [address] PCP - General Internal Medicine 04/10/23
--- OUTSIDE RECORDS SUMMARY | 2025-02-05 17:21 | XMS_ITS | Clinical Summary ---
Author Organization [employer] Address [address] [facility] [place] [address] Care Team Providers Care Nail Cutter Name Role Phone Unavailable Primary Care Provider Unavailabl e Source Comments [facility] [employer],non-owned Affiliates and Associated Physician Practices is amultiple site organization consisting of ambulatory clinics and hospital sitesin [place], [place], [place] and [place]. This disclosure is being madepursuant to the Care Everywhere program and may not contain all information available regarding this patient. Last updated 18.[employer] Allergies No known active allergies Medications * [...] Roy was screened for depression using the [place] Depression Scale (EPDS) at her [facility] initial evaluation on 03/16/2021. Her initial score at baseline was 1. Based off of her score of 1, Ysabel does not warrant follow up. Patient will continue to be screened throughout , at intervals no closer than two weeks, for continued surveillance and early identification of depression until delivery. Patient denies mental health history. LONG-TERM: abnormality in pr egnancy, ventriculomegaly 02/16/2021 06/07/2021 Overview (03/17/2021): Images from the original note were not included. LONG-TERM PATIENT--PLEASE CALL [phone] (ex 2) IF TRIAGED OR ADMITTED Care Provider: Dr. Moeller [facility] consultants involved: Nurse coordinator-Mayra Mcdonald; [facility]-Dr. Childers Diagnosis: Previous concern for ventriculomegaly; lateral ventricles of the brain measure within normal limits on ultrasound from 03/16/2021 Planned surveillance: Continue routine OB care; ultrasound in [facility] weeks at [facility] for growth and fluid check; Released from LONG-TERM after initial visit on 03/16/2021 Delivery location: [facility] Delivery mode: Per usual OB indications Desired Delivery GA: No indication for delivery before 39 weeks at this time follow up: Routine care Purification Operator Helper: Undecided Autopsy indicated: Genetics note: Low risk NIPT (predicted male) Silk Screen Printer Helper Concerns: 03/16/2021- There are no social service [...] age to complete this topic Insurance [facility]
== END 2025-02-05 18:06 | disposition home or self-care (01) ==
LOC: ANHED 17:19
PROVIDERS: Emergency Medicine; Emergency Provider Family Medicine; PCP Internal Medicine
DX: R07.89 Other chest pain (principal); R94.31 Abnormal electrocardiogram [ECG] [EKG]
CPT/HCPCS: 36415; 71046; 80053; 83690; 84484; 85025; 85610; 85730; 93005; 99284

== ENCOUNTER 2025-05-22 16:41 | Emergency (ER) | payer OTHER, SELFPAY ==
--- NOTE | ~2025-05-22 | CT_ITS ---
EXAMINATION: CT brain wo con DATE: 05/22/2025 19:24 INDICATION: dizziness, headache . TECHNIQUE: Computed tomography (CT) of the head was performed without intravenous contrast. The mA wa s adjusted according to patient size. Iterative reconstruction technique was employed. The dose-lengt h product was 681.00 mGy-cm. COMPARISON: 05/26/2020. FINDINGS: No acute intracranial hemorrhage or extra-axial fluid collection. No hydrocephalus, mass, or herniation. No acute ischemic infarct. Unremarkable dural venous sinus attenuation. No acute osseous abnormality. Ethmoid mucosal thickening, the remaining aerated spaces are clear. IMPRESSION: No acute intracranial process. Reviewed, dictated and finalized at location K.
--- NOTE | ~2025-05-22 | XR_ITS ---
EXAMINATION: XR chest 2V Exam Date/Time: 05/22/2025 17:40 CDT HISTORY: CP Comparison: 02/05/2025. RESULT: Lines, tubes, and devices: None. Lungs and pleura: Clear. Cardiomediastinal silhouette: Stable. Other: No acute osseous or upper abdominal finding. IMPRESSION: No acute cardiopulmonary process. Reviewed, dictated and finalized at location K.
--- NOTE | 2025-05-22 16:43 | ECG_ITS ---
Test Date: 2025-05-22 16:57:22 Measurements Intervals [place] Rate: 83 P: 35 MN: 149 QRS: 10 QRSD: 103 T: -2 QT: 330 QTc: 389 Interpretive Statements SINUS RHYTHM VOLTAGE CRITERIA FOR LVH BORDERLINE ST-T WAVE ABNORMALITY- INFERIOR LEADS BORDERLINE ECG Compared to ECG 02/05/2025 15:22:58 NO SIGNIFICANT CHANGE Electronically Signed On 05-22-2025 18:27:29 CDT by Kane iMke D.O.
--- OUTSIDE RECORDS SUMMARY | 2025-05-22 16:43 | XMS_ITS | Clinical Summary ---
Author Organization [facility] at the [facility] Address [address] [place] [address] Care Team Providers Care Contract Driver Name Role Phone Ruddy Jones MD Primary Care Provider [phone] Allergies No known active allergies Medications multivitamin [...] week 06/29/2024 How often do you attend [facility] or rastafari services? More than 4 times per year 06/29/2024 Do you belong to any clubs o r organizations such as yazidi groups, unions, fraternal or athletic groups, or [...] staff should administer the PHQ-9) 0 07/10/2024 [facility] of Occupat ional Health - Occupational Stress [...] any time in the past 12 m [place], were you homeless or living in a residential (including now)? No 07/10/2024 Personal Safety Answer [...] al N Livin g 8 9 Yosol a Eunic e Disu Jose magallon, Cristhian Lee MD Complications:None Delivery Location:This Facil [...] 11:44 AM CDT Height 162.6 cm (5' 4) 02/02/2025 11:44 AM CDT Body Mass Index 36.3 02/02/2025 11:44 AM CDT Plan of Treatment Health Maintenance Due Date Last Done Comments Cervical Cancer Screening 1989 Hepatitis C Screening 1989 DTaP/Tdap/Td Vaccine (1 - Tdap) 01/08/2000 Hepatitis B Screening 2007 Regular Well Visit/Exam 18-64 2007 HPV Vaccines (1 - 3-dose SCDM series) 01/08/2016 Varicella Vaccines (2 of 2 - 13+ 2-dose series) 08/09/2024 07/12/2024 Influenza Vaccine (#1) 2025 Depression Screening 07/04/2025 07/04/2024, 06/27/2024, 05/25/2024, Additional history exists Pneumococcal vaccine <65 Aged Out No longer eligible based on patient's age to complete this topic Insurance [address] [place] [address] [facility] Advance Directives For more information, please contact: [phone] * Full Code (Latest Code Status on [...] ca se of cardiopulmonary arrest Care Teams Contract Driver Relationship Specialty Start Date End Date Ruddy Jones MD [address] [place] [address] PCP - General Internal Medicine 04/10/23
--- OUTSIDE RECORDS SUMMARY | 2025-05-22 16:44 | XMS_ITS | Clinical Summary ---
Author Organization [facility] Address [address] [place] [address] Care Team Providers Care Ceo Name Role Phone Unavailable Primary Care Provider Unavailabl e Source Comments [facility],non-owned Affiliates and Associated Physician Practices is amultiple site organization consisting of ambulatory clinics and hospital sitesin [place], [place], [place] and [place]. This disclosure is being madepursuant to the Care Everywhere program and may not contain all information available regarding this patient. Last updated 18.[employer] Allergies No known active allergies Medications * [...] Roy was screened for depression using the [place] Depression Scale (EPDS) at her [facility] initial evaluation on 03/16/2021. Her initial score at baseline was 1. Based off of her score of 1, Ysabel does not warrant follow up. Patient will continue to be screened throughout , at intervals no closer than two weeks, for continued surveillance and early identification of depression until delivery. Patient denies mental health history. NURSING HOME: abnormality in pr egnancy, ventriculomegaly 02/16/2021 06/07/2021 Overview (03/17/2021): Images from the original note were not included. NURSING HOME PATIENT--PLEASE CALL [phone] (ex 2) IF TRIAGED OR ADMITTED Care Provider: Dr. Moeller [facility] consultants involved: Nurse coordinator-Mayra Mcdonald; [facility]-Dr. Childers Diagnosis: Previous concern for ventriculomegaly; lateral ventricles of the brain measure within normal limits on ultrasound from 03/16/2021 Planned surveillance: Continue routine OB care; ultrasound in four weeks at [facility] for growth and fluid check; Released from NURSING HOME after initial visit on 03/16/2021 Delivery location: [facility] Delivery mode: Per usual OB indications Desired Delivery GA: No indication for delivery before 39 weeks at this time follow up: Routine care Dike Supervisor: Undecided Autopsy indicated: Genetics note: Low risk NIPT (predicted male) Home Visits Nurse Concerns: 03/16/2021- There are no social service [...] Health Maintenance Due Date Last Done Comments HEPATITIS C SCREENING 01/03/2007 DTAP/TDAP/TD VACCINES (1 - Tdap) 01/08/2008 HEPATITIS B VACCINE (1 of 3 - 19+ 3-dose series) 01/08/2008 PAP SMEAR 2010 HPV VACCINE (1 - 3-dose SCDM series) 01/08/2016 COVID-19 VACCINE ( - 2023-2 5 season) 2024 DEPRESSION SCREENING 10/21/2024 INFLUENZA VACCINE (#1) 2025 ZOSTER VACCINE (1 of 2) 2039 [...] age to complete this topic Insurance [facility]
--- OUTSIDE RECORDS SUMMARY | 2025-05-22 16:44 | XMS_ITS | Referral Summary ---
Author Organization [facility] at the [facility] Address [address] [place] [address] Care Team Providers Care Environmental Studies Faculty Member Name Role Phone Ruddy Jones MD Primary Care Provider [phone] Allergies No known active allergies Medications multivitamin [...] often do you attend chur ch or mormon services? More than 4 times per year 06/29/2024 Do you belong to any clubs o r organizations such as congregation groups, unions, fraternal or athletic groups, or [...] staff should administer the PHQ-9) 0 07/10/2024 [facility] - Occupational Stress [...] any time in the past 12 m [facility], were you homeless or living in a senior care (including now)? No 07/10/2024 Personal Safety Answer [...] CDT Plan of Treatment Not on file Insurance [address] [place] [id number] [employer] [facility] AETNA BETTER [facility] [place] Advance Directives For more information, please contact: [phone] * Full Code (Latest Code Status on [...] ca se of cardiopulmonary arrest Care Teams Environmental Studies Faculty Member Relationship Specialty Start Date End Date Ruddy Jones MD [address] [facility] [place] [address] PCP - General Internal Medicine 04/10/23
[2025-05-22 16:46] VITALS: BP 129/71; PULSE 90; RESP 18; TEMP 36.3; O2SAT 99
[2025-05-22 17:23] LABS: Hematocrit 40.0 % (37.0-47.0); Hemoglobin 12.4 g/dL (12.0-15.0); Immature Granulocyte Percent A 0.3 % (0-0.5); Lymphocytes Absolute Auto 2.32 K/mm3 (0.9-3.2); Mean Corpuscular HGB Conc 31.0 g/dl (32-36); Mean Corpuscular Hemoglobin 26.8 pg (26-34); Mean Corpuscular Volume 86.4 fl (80-100); Nucleated Red Blood Cells Absolute Auto 0.000 K/mm3 (0.0-0.012); Nucleated Red Blood Cells Perc 0.0 % (0.0-0.2); Platelet Count Result 428 k/mm3 (150-375); Red Blood Count 4.63 M/mm3 (4.2-5.4); White Blood Count 10.8 K/mm3 (4.5-10.0)
[2025-05-22 17:46] LABS: Alanine Aminotransferase 18 U/L (6-35); Albumin Level 4.7 g/dL (3.5-5.1); Alkaline Phosphatase 70 U/L (38-126); Anion Gap 11 mmol/L (4-12); Aspartate Amino Transferase 33 U/L (14-36); Bilirubin,Total 0.4 mg/dL (0.2-1.3); Blood Urea Nitrogen 8 mg/dL (7-17); Calcium 10.1 mg/dL (8.4-10.2); Carbon Dioxide 22 mmol/L (22-30); Chloride 103 mmol/L (98-107); Estimated Glomerular Filt Rate > 60; Glucose 104 mg/dL (65-110); Lipase 45 U/L (23-300); Potassium 3.6 mmol/L (3.4-5.0); Sodium 136 mmol/L (137-145); Total Protein 8.1 g/dL (6.3-8.2)
--- OUTSIDE RECORDS SUMMARY | 2025-05-22 17:53 | XMS_ITS | Referral Summary ---
Author Organization [facility] at the [facility] Address [address] [place] [address] Care Team Providers Care Photo Optics Technician Name Role Phone Ruddy Jones MD Primary Care Provider [phone] Allergies No known active allergies Medications multivitamin [...] often do you attend chur ch or alevism services? More than 4 times per year 06/29/2024 Do you belong to any clubs o r organizations such as cheondoism groups, unions, fraternal or athletic groups, or [...] staff should administer the PHQ-9) 0 07/10/2024 [facility] Occupat ional Health - Occupational Stress [...] any time in the past 12 m [facility], were you homeless or living in a halfway (including now)? No 07/10/2024 Personal Safety Answer [...] of Treatment Not on file Insurance [address] [place] [id number] AETNA [facility] AETNA BETTER [facility] [place] Advance Directives For more information, please contact: [phone] * Full Code (Latest Code Status on [...] ca se of cardiopulmonary arrest Care Teams Photo Optics Technician Relationship Specialty Start Date End Date Ruddy Jones MD [address] [facility] [place] [address] PCP - General Internal Medicine 04/10/23
--- OUTSIDE RECORDS SUMMARY | 2025-05-22 17:53 | XMS_ITS | Clinical Summary ---
Author Organization [facility] Address [address] [place] [address] Care Team Providers Care Sterilizer Machine Operator Name Role Phone Unavailable Primary Care Provider Unavailabl e Source Comments [facility],non-owned Affiliates and Associated Physician Practices is amultiple site organization consisting of ambulatory clinics and hospital sitesin [place], [place], [place] and [place]. This disclosure is being madepursuant to the Care Everywhere program and may not contain all information available regarding this patient. Last updated 18.[employer] Allergies No known active allergies Medications * [...] Roy was screened for depression using the [place] Depression Scale (EPDS) at her [facility] initial evaluation on 03/16/2021. Her initial [...] note were not included. LONG-TERM PATIENT--PLEASE CALL [phone] (ex 2) IF TRIAGED OR ADMITTED Care Provider: Dr. Moeller [facility] consultants involved: Nurse coordinator-Mayra Mcdonald; [facility]-Dr. Childers Diagnosis: Previous concern for ventriculomegaly; lateral ventricles of the brain measure within normal limits on ultrasound from 03/16/2021 Planned surveillance: Continue routine OB care; ultrasound in four weeks at [facility] for growth and fluid check; Released from LONG-TERM after initial visit on 03/16/2021 Delivery location: [facility] Delivery mode: Per usual OB indications Desired Delivery GA: No indication for delivery before 39 weeks at this time follow up: Routine care Finish Grinder: Undecided Autopsy indicated: Genetics note: Low risk NIPT (predicted male) Data Governance Analyst Concerns: 03/16/2021- There are no social service [...] age to complete this topic [facility]
--- OUTSIDE RECORDS SUMMARY | 2025-05-22 17:53 | XMS_ITS | Clinical Summary ---
Author Organization [facility] at the [facility] Address [address] [place] [address] Care Team Providers Care Systems Mgr Name Role Phone Ruddy Jones MD Primary Care Provider [phone] Allergies No known active allergies Medications multivitamin [...] week 06/29/2024 How often do you attend caro center or temple services? More than 4 times per year 06/29/2024 Do you belong to any clubs o r organizations such as religion groups, unions, fraternal or athletic groups, or [...] staff should administer the PHQ-9) 0 07/10/2024 [facility] Occupat ional Health - Occupational Stress [...] were you homeless or living in a half-way (including now)? No 07/10/2024 Personal Safety Answer [...] complete this topic Insurance [address] [place] [address] [facility] Advance Directives For more information, please contact: [phone] * Full Code (Latest Code Status on [...] ca se of cardiopulmonary arrest Care Teams Systems Mgr Relationship Specialty Start Date End Date Ruddy Jones MD [address] [facility] [place] [address] PCP - General Internal Medicine 04/10/23
[2025-05-22 17:57] LABS: Troponin I < 0.012 ng/mL (0.000-0.034)
[2025-05-22 17:58] LABS: INR 1.1; Prothrombin Time 13.9 Seconds (11.1-14.7)
[2025-05-22 17:59] LABS: Partial Thromboplastin Time 34.3 Seconds (22.3-36.8)
[2025-05-22 19:01] LABS: Magnesium 2.1 mg/dL (1.6-2.3)
[2025-05-22] MEDS: ACETAMINOPHEN 500 MG TABLET 1000 MG PO (19:10)
[2025-05-22 19:26] VITALS: BP 132/73; PULSE 62
[2025-05-22 19:28] VITALS: BP 120/72; PULSE 63
[2025-05-22 19:30] VITALS: BP 118/74; PULSE 65
--- NOTE | 2025-05-22 19:38 | ECG_ITS ---
Test Date: 2025-05-22 19:46:23 Measurements Intervals [place] Rate: 62 P: 5 ID: 162 QRS: 1 QRSD: 99 T: -4 QT: 367 QTc: 375 Interpretive Statements SINUS RHYTHM DELAYED PRECORDIAL R/S TRANSITION VOLTAGE CRITERIA FOR LVH BORDERLINE ST-T WAVE ABNORMALITY- INFERIOR LEADS BORDERLINE ECG Compared to ECG 05/22/2025 16:57:22 No significant changes Electronically Signed On 05-23-2025 08:05:32 CDT by Kane Mike D.O.
--- NOTE | 2025-05-22 19:46 | ECG_ITS ---
Test Date: 2025-05-22 19:46:05 Measurements Intervals [place] Rate: 62 P: 5 DC: 155 QRS: 0 QRSD: 105 T: -4 QT: 362 QTc: 368 Interpretive Statements SINUS RHYTHM DELAYED PRECORDIAL R/S TRANSITION VOLTAGE CRITERIA FOR LLEFT VENTRICULAR HYPERTROPHY MINIMAL Q WAVES- HIGH LATERAL LEADS BORDERLINE ST-T WAVE ABNORMALITY- INFERIOR LEADS BASELINE ARTIFACT- I, II, III BORDERLINE ECG Compared to ECG 05/22/2025 16:57:22 No significant changes Electronically Signed On 05-23-2025 16:16:31 CDT by Kane Mike D.O.
[2025-05-22] MEDS: SODIUM CHLORIDE 0.9% IV 1,000 ML 999 ML IV CONT (19:48)
[2025-05-22 20:43] LABS: Troponin I < 0.012 ng/mL (0.000-0.034)
--- NOTE | 2025-05-22 20:47 | ED.CHESTPAIN ---
HPI - Chest Pain General Chief Complaint: Chest Pain Stated Complaint: Left chest pain, dizziness Time Seen by Provider: 05/22/25 17:29 Source: patient Mode of arrival: ambulatory Limitations: no limitations History of Present Illness HPI narrative: Patient is a 35-year-old female who presents the ED with report of chest pain and lightheadedness. Patient reports she has had intermittent chest pain since giving to her daughter 10 months ago. States it did seem to become more severe today. Present in midsternal chest. No significant aggravating or relieving factors. She also reported having lightheadedness today, worse with movement. She states she has been eating and drinking normally. Complains of mild headache. Denies shortness of breath. Denies recent cough or cold symptoms. Denies fevers. Related Data Home Medications ?Medication ?Instructions ?Recorded ?Confirmed ?Last Taken ?Type docusate sodium 100 mg capsule 100 mg PO Q12H 07/25/24 07/25/24 Unknown History Allergies Allergy/AdvReac Type Severity Reaction Status Date / Time No Known Allergies Allergy Verified 05/22/25 16:42 Review of Systems Review of Systems: All systems reviewed & are unremarkable except as noted in HPI. All systems reviewed & are unremarkable except as noted in HPI and below PMFSH Past Medical History Medical History Patient denies significant medical history Family History Family History Other Unknown family medical history Social History Social History Smoking status: Never smoker Second hand tobacco smoke exposure: No Substance use: never Substance use type: does not use Gender identity (if verbalized by the patient): Female Sexual Orientation (if Verbalized by the Patient): Straight or Heterosexual Spiritual care concerns: No Exam Narrative: GENERAL: Well appearing, well-nourished, non-toxic, in no acute distress. HEAD: Normocephalic, atraumatic. RESPIRATORY: Airway patent, respirations nonlabored. Clear to auscultation bilaterally, no rales, rhonchi, wheezing. No focal lung sounds. CARDIOVASCULAR: Regular rate and rhythm without murmurs, rubs, or gallops. ABDOMINAL: Soft, nontender, nondistended. Normoactive BS. MUSCULOSKELETAL: Moves all extremities. No gross deformities. No significant midsternal chest wall tenderness. No peripheral edema. No calf tenderness. SKIN: Warm, dry, normal color. NEURO: A&O X3. Speech clear. Cranial nerves II-XII grossly intact. Steady gait. No ataxic movements. PSYCHIATRIC: Mildly anxious appearing. Normal interaction. Course Vital Signs Vital signs: Vital Signs Temperature 97.3 F L 05/22/25 16:46 Pulse Rate 90 05/22/25 16:46 Respiratory Rate 18 05/22/25 16:46 Blood Pressure 129/71 05/22/25 16:46 Pulse Oximetry 99 05/22/25 16:46 Temperature 97.3 F L 05/22/25 16:46 Pulse Rate 65 05/22/25 19:30 Respiratory Rate 18 05/22/25 16:46 Blood Pressure 118/74 05/22/25 19:30 Pulse Oximetry 99 05/22/25 16:46 MDM - Chest Pain MDM Narrative Medical decision making narrative: EKG with T-wave inversion in lead 3. Otherwise fairly unremarkable. Sinus rhythm. Baseline troponin undetectable. D-dimer within normal range. Denying any shortness of breath. No tachycardia or hypoxia. No evidence of DVT on exam. Chest x-ray is clear. CT brain negative. Stable electrolytes. Heart score = 1 based on EKG. No other significant risk factors for CAD. 3 hour EKG without interval changes. 3 hour troponin also undetectable. Low suspicion for ACS at this time. Overall reassuring workup. Orthostatic vital signs were evaluated and patient did have slight drop with each position change. She is given a L of fluids. On re-evaluation, she does report feeling much improved. Feel overall safe for discharge home at this time. Advised to stay very well hydrated. Recommended close follow-up with PCP for further evaluation. Given strict return precautions. She is in agreement with plan. Discharged in stable condition. Medical Records Data Attestation: I reviewed the patient's medical records. Lab Data Attestation: I reviewed the patient's lab results. 05/22/25 17:05 05/22/25 17:05 Labs: Lab Results 05/22/25 05/22/25 05/22/25 Range/Units 17:05 17:06 19:48 WBC 10.8 H (4.5-10.0) K/mm3 RBC 4.63 (4.2-5.4) M/mm3 Hgb 12.4 (12.0-15.0) g/dL Hct 40.0 (37.0-47.0) % MCV 86.4 (80-100) fl MCH 26.8 (26-34) pg MCHC 31.0 L (32-36) g/dl RDW 13.9 (11.5-14.5) % Plt Count 428 H (150-375) k/mm3 MPV 8.9 (7.4-10.4) fl Immature Gran % (Auto) 0.3 (0-0.5) % Neut % (Auto) 69.2 (45.5-73.1) % Lymph % (Auto) 21.5 (18.3-44.2) % [place] % (Auto) 5.1 (2.6-8.5) % Eos % (Auto) 3.4 (0-4.4) % Baso % (Auto) 0.5 (0.2-1.2) % Lymph # (Auto) 2.32 (0.9-3.2) K/mm3 [place] # (Auto) 0.6 (0.1-0.6) K/mm3 Eos # (Auto) 0.4 H (0-0.3) K/mm3 Baso # (Auto) 0.1 (0.0-0.1) K/mm3 Abs Immat Gran (auto) 0.03 (0.00-0.031) K/mm3 Absolute Neuts (auto) 7.5 H (1.3-6.7) K/mm3 Absolute Nucleated RBC 0.000 (0.0-0.012) K/mm3 Nucleated RBC % 0.0 (0.0-0.2) % PT 13.9 (11.1-14.7) Seconds INR 1.1 APTT 34.3 (22.3-36.8) Seconds D-Dimer < 0.27 (<0.48) ug/mL Sodium 136 L (137-145) mmol/L Potassium 3.6 (3.4-5.0) mmol/L Chloride 103 (98-107) mmol/L Carbon Dioxide 22 (22-30) mmol/L Anion Gap 11 (4-12) mmol/L BUN 8 (7-17) mg/dL Creatinine 0.59 L (0.7-1.0) mg/dL Estim Creat Clear Calc Not Reportable Estimated GFR > 60 (59 - ) Glucose 104 (65-110) mg/dL Calcium 10.1 (8.4-10.2) mg/dL Magnesium 2.1 (1.6-2.3) mg/dL Total Bilirubin 0.4 (0.2-1.3) mg/dL AST 33 (14-36) U/L ALT 18 (6-35) U/L Alkaline Phosphatase 70 (38-126) U/L Troponin I < 0.012 < 0.012 (0.000-0.034) ng/mL Total Protein 8.1 (6.3-8.2) g/dL Albumin 4.7 (3.5-5.1) g/dL Lipase 45 (23-300) U/L Imaging Data Attestation: I personally reviewed and interpreted this imaging study as follows: Radiologist's impression: ITS Impressions Chest X-Ray 05/22/25 17:55 IMPRESSION: No acute cardiopulmonary process. Head CT 05/22/25 19:25 IMPRESSION: No acute intracranial process. ECG Data EKG #1: Attestation: I personally reviewed and interpreted this ECG as follows: ECG completion date: 05/22/25 ECG completion time: 16:57 EKG Interpretation: normal rate (83), sinus rhythm and non-specific ST changes Discharge Plan Discharge Clinical Impression: Atypical chest pain, Orthostatic hypotension Patient Disposition: Home Condition: Stable Instructions: Antibiotic Form, Chest Pain (ED), Dehydration (ED), Hypotension (ED) Additional Instructions: Your workup here was reassuring. There is no evidence of injury to your heart. Recommend staying very well hydrated as this could be contributing to your lightheadedness. Follow-up with your primary care doctor for further evaluation. Return to the ED if you experience worsening or severe pain, worsening or severe dizziness, unable to keep down food or drink, difficulty breathing, or any other symptoms of concern. Patient Language: Prydeinig Prescriptions: No Action PNV-DHA 27 mg iron-1 mg -300 mg capsule 1 cap PO DAILY Qty: 90 0RF docusate sodium 100 mg capsule 100 mg PO Q12H cephalexin 500 mg capsule 500 mg PO Q12H Qty: 10 0RF Follow-up/Referrals: Ruddy Jones MD [Primary Care Provider] - Time of Disposition: 20:57 Quality HEART score for chest pain patients History: slightly suspicious ECG: non specific repolarization disturbance/LBTB/PM Age: < or = to 45 years Risk factors: no risk factors known Troponin: < or = to 1x normal limit Heart score: 1
== END 2025-05-22 21:20 | disposition home or self-care (01) ==
PROVIDERS: Student in an Organized Health Care Education/Training Program; Emergency Provider Physician Assistant; PCP Internal Medicine
DX: I95.1 Orthostatic hypotension (principal); R07.89 Other chest pain; R94.31 Abnormal electrocardiogram [ECG] [EKG]
CPT/HCPCS: 36415; 70450; 71046; 80053; 83690; 83735; 84484; 85025; 85380; 85610; 85730; 93005; 96360; 99284; A9270; J7030

== ENCOUNTER 2025-09-10 21:44 | Emergency (ER) | payer OTHER, SELFPAY ==
[2025-09-10] VITALS (15 sets, daily range): BP systolic 107–122; BP diastolic 65–73; PULSE 65–78; RESP 15–24; TEMP 36.6; O2SAT 98–100
--- NOTE | ~2025-09-10 | XR_ITS ---
Examination: XR chest 2V Clinical History: CHEST PAIN Comparison: 05/22/2025 Technique: PA and Lateral Findings: Cardiomediastinal silhouette normal size and configuration. Lungs clear. No acute bony abnormality. IMPRESSION: 1. No acute cardiopulmonary findings. Reviewed, dictated and finalized at location R. ING INSTRUMENT SPECIALIST
[2025-09-10 22:03] LABS: Hematocrit 37.2 % (37.0-47.0); Hemoglobin 11.6 g/dL (12.0-15.0); Immature Granulocyte Percent A 0.2 % (0-0.5); Lymphocytes Absolute Auto 2.89 K/mm3 (0.9-3.2); Mean Corpuscular HGB Conc 31.2 g/dl (32-36); Mean Corpuscular Hemoglobin 26.9 pg (26-34); Mean Corpuscular Volume 86.3 fl (80-100); Nucleated Red Blood Cells Absolute Auto 0.000 K/mm3 (0.0-0.012); Nucleated Red Blood Cells Perc 0.0 % (0.0-0.2); Platelet Count Result 457 k/mm3 (150-375); Red Blood Count 4.31 M/mm3 (4.2-5.4); White Blood Count 10.8 K/mm3 (4.5-10.0)
[2025-09-10] MEDS: ASPIRIN 81 MG CHEWABLE TABLET 324 MG PO (22:06)
[2025-09-10 22:14] LABS: Alanine Aminotransferase 16 U/L (6-35); Albumin Level 4.3 g/dL (3.5-5.1); Alkaline Phosphatase 64 U/L (38-126); Anion Gap 9 mmol/L (4-12); Aspartate Amino Transferase 28 U/L (14-36); Bilirubin,Total 0.3 mg/dL (0.2-1.3); Blood Urea Nitrogen 10 mg/dL (7-17); Calcium 9.6 mg/dL (8.4-10.2); Carbon Dioxide 24 mmol/L (22-30); Chloride 103 mmol/L (98-107); Estimated CRCL calculation 118 ml/min; Estimated Glomerular Filt Rate > 60; Glucose 102 mg/dL (65-110); INR 1.0; Potassium 3.8 mmol/L (3.4-5.0); Prothrombin Time 13.7 Seconds (11.1-14.7); Sodium 136 mmol/L (137-145); Total Protein 7.4 g/dL (6.3-8.2)
[2025-09-10 22:15] LABS: Partial Thromboplastin Time 34.3 Seconds (22.3-36.8)
[2025-09-10 22:26] LABS: NT Pro B Type Natriuretic Pept < 20 pg/mL (19.9-100); Troponin I < 0.012 ng/mL (0.000-0.034)
--- NOTE | 2025-09-10 23:02 | ED_ITS ---
HPI - Chest Pain General Chief Complaint: Chest Pain Stated Complaint: chest pain Time Seen by Provider: 09/10/25 22:32 History of Present Illness HPI narrative: 35-year-old female presenting to the emergency department with chest pain. She states she has been having longstanding chest discomfort for last 10 months and has an outpatient cardiology appointment for a 2nd opinion coming up in September. Today she was having some chest discomfort that she describes as a burning sharp pain in the center of her chest sometimes into her left upper abdomen. Denies any nausea, vomiting. No diaphoresis or back pain. No traumatic injuries. No difficulty breathing. States it feels very similar to her usual pain it just got up to an 8/10 so she was concerned. Prior to my initial evaluation pain is already subsiding without any interventions. Patient denies any complaints and is resting comfortably and even sleeping during my initial encounter. Denies any new symptoms and states she has some mild chest discomfort now. Has not tried anything besides a Tylenol at home for symptoms. No recent surgical procedures or history of thromboembolic disease. She was otherwise in her normal state of health recently. Has been seen here several times for noncardiac related chest pains with referral to Cardiology given. Related Data Home Medications ?Medication ?Instructions ?Recorded ?Confirmed ?Last Taken ?Type docusate sodium 100 mg capsule 100 mg PO Q12H 07/25/24 07/25/24 Unknown History Allergies Allergy/AdvReac Type Severity Reaction Status Date / Time No Known Allergies Allergy Verified 09/10/25 23:15 Review of Systems 2 Review of Systems: As reviewed above in HPI All systems reviewed & are unremarkable except as noted in HPI and below PMFSH Past Medical History Medical History Patient denies significant medical history Family History Family History Other Unknown family medical history Social History Social History Smoking status: Never smoker Second hand tobacco smoke exposure: No Substance use: never Substance use type: does not use Gender identity (if verbalized by the patient): Female Sexual Orientation (if Verbalized by the Patient): Straight or Heterosexual Spiritual care concerns: No Exam 2 Narrative: GENERAL: [Well-appearing, well-nourished, and in no acute distress.] HEAD: [Normocephalic, atraumatic.] EYES: [PERRLA and EOMI.] ENT: Nares clear, no rhinorrhea or epistaxis. Mucous membranes moist. NECK: Supple. CHEST: [Clear to auscultation. No respiratory distress.] HEART: [Regular rate and rhythm]. No murmur heard. [Normal peripheral pulses.] ABDOMEN: [Soft, nondistended], [nontender], [No rigidity or guarding] EXTREMITIES: Normal range of motion. [No edema.] SKIN: Warm, dry, no rash. NEURO: [No focal deficits]. Alert and oriented [x3.] PSYCH: [Normal mood and affect.] Course Vital Signs Vital signs: Vital Signs Temperature 36.6 C 09/10/25 21:46 Pulse Rate 78 09/10/25 21:46 Respiratory Rate 18 09/10/25 21:46 Blood Pressure 107/65 09/10/25 21:46 Pulse Oximetry 100 09/10/25 21:46 Oxygen Delivery Room Air 09/10/25 21:46 Temperature 36.6 C 09/10/25 21:46 Pulse Rate 76 09/11/25 01:30 Respiratory Rate 23 H 09/10/25 22:15 Blood Pressure 122/73 09/10/25 23:01 Pulse Oximetry 100 09/11/25 01:30 Oxygen Delivery Room Air 09/10/25 21:54 MDM - Chest Pain MDM Narrative Medical decision making narrative: 35-year-old female presenting to the emergency department with chest pain. She states she has been having longstanding chest discomfort for last 10 months and has an outpatient cardiology appointment for a 2nd opinion coming up in September. Today she was having some chest discomfort that she describes as a burning sharp pain in the center of her chest sometimes into her left upper abdomen. Denies any nausea, vomiting. No diaphoresis or back pain. No traumatic injuries. No difficulty breathing. States it feels very similar to her usual pain it just got up to an 8/10 so she was concerned. Prior to my initial evaluation pain is already subsiding without any interventions. Patient denies any complaints and is resting comfortably and even sleeping during my initial encounter. Denies any new symptoms and states she has some mild chest discomfort now. Has not tried anything besides a Tylenol at home for symptoms. No recent surgical procedures or history of thromboembolic disease. She was otherwise in her normal state of health recently. Has been seen here several times for noncardiac related chest pains with referral to Cardiology given. Patient has normal vital signs with any tachycardia, fever, hypoxemia or blood pressure concerns. She has a benign physical examination. Clear breath sounds throughout. Strong symmetric pulses. Most likely musculoskeletal chest pain versus GI related chest discomfort. Low suspicion ACS aortic syndrome or thromboembolic disease such as PE. Dimer used to rule out vascular causes of concern as well as a troponin for potential ACS but low likelihood. Serial delta troponin ordered given timeline of events and basic laboratory studies ordered as well as an EKG and chest x-ray. EKG shows chronic lead [address] inversion [address] segment elevations or depressions. No interval change compared to prior EKG. No ectopy. Patient was given Toradol and Pepcid for symptom control and placed on cardiac technologist. Patient's initial and 3 hour troponin were both negative. D-dimer and BNP are negative. EKG is nonischemic in nature. No significant leukocytosis or significant levels of anemia. Patient remains hemodynamically stable on repeat vital signs. Symptoms subsided and pain improved with treatments. Chest x-ray unremarkable. No pneumonia or pneumothorax. Already has cardiology follow-up next month and given strict return precautions prior to safe discharge home. Medical Records Data Attestation: I reviewed the patient's medical records. Lab Data Attestation: I reviewed the patient's lab results. 09/10/25 21:58 09/10/25 21:58 Labs: Lab Results 09/10/25 09/11/25 Range/Units 21:58 01:01 WBC 10.8 H (4.5-10.0) K/mm3 RBC 4.31 (4.2-5.4) M/mm3 Hgb 11.6 L (12.0-15.0) g/dL Hct 37.2 (37.0-47.0) % MCV 86.3 (80-100) fl MCH 26.9 (26-34) pg MCHC 31.2 L (32-36) g/dl RDW 14.3 (11.5-14.5) % Plt Count 457 H (150-375) k/mm3 MPV 8.5 (7.4-10.4) fl Immature Gran % (Auto) 0.2 (0-0.5) % Neut % (Auto) 60.8 (45.5-73.1) % Lymph % (Auto) 26.8 (18.3-44.2) % [place] % (Auto) 8.0 (2.6-8.5) % Eos % (Auto) 3.6 (0-4.4) % Baso % (Auto) 0.6 (0.2-1.2) % Lymph # (Auto) 2.89 (0.9-3.2) K/mm3 [place] # (Auto) 0.9 H (0.1-0.6) K/mm3 Eos # (Auto) 0.4 H (0-0.3) K/mm3 Baso # (Auto) 0.1 (0.0-0.1) K/mm3 Abs Immat Gran (auto) 0.02 (0.00-0.031) K/mm3 Absolute Neuts (auto) 6.6 (1.3-6.7) K/mm3 Absolute Nucleated RBC 0.000 (0.0-0.012) K/mm3 Nucleated RBC % 0.0 (0.0-0.2) % PT 13.7 (11.1-14.7) Seconds INR 1.0 APTT 34.3 (22.3-36.8) Seconds D-Dimer < 0.27 (<0.48) ug/mL Sodium 136 L (137-145) mmol/L Potassium 3.8 (3.4-5.0) mmol/L Chloride 103 (98-107) mmol/L Carbon Dioxide 24 (22-30) mmol/L Anion Gap 9 (4-12) mmol/L BUN 10 (7-17) mg/dL Creatinine 0.62 L (0.7-1.0) mg/dL Estim Creat Clear Calc 118 ml/min Estimated GFR > 60 (59 - ) Glucose 102 (65-110) mg/dL Calcium 9.6 (8.4-10.2) mg/dL Total Bilirubin 0.3 (0.2-1.3) mg/dL AST 28 (14-36) U/L ALT 16 (6-35) U/L Alkaline Phosphatase 64 (38-126) U/L Troponin I < 0.012 < 0.012 (0.000-0.034) ng/mL NT-Pro-B Natriuret Pep < 20 (19.9-100) pg/mL Total Protein 7.4 (6.3-8.2) g/dL Albumin 4.3 (3.5-5.1) g/dL Imaging Data Attestation: I personally reviewed and interpreted this imaging study as follows: My impression: no acute pneumonia or pneumothorax Discharge Plan Discharge Clinical Impression: Atypical chest pain Patient Disposition: Home Condition: Stable Instructions: Antibiotic Form, Chest Pain (ED) Additional Instructions: Laboratory studies EKG and chest x-ray were all normal in reassuring. No identifiable cause but no urgent or emergent concerns were identified today. Follow-up with your cardiology appointment in September. Return with any recurrent symptoms or emergent concerns at any time. Patient Language: [place] Prescriptions: No Action PNV-DHA 27 mg iron-1 mg -300 mg capsule 1 cap PO DAILY Qty: 90 0RF docusate sodium 100 mg capsule 100 mg PO Q12H cephalexin 500 mg capsule 500 mg PO Q12H Qty: 10 0RF Follow-up/Referrals: Ruddy Jones MD [Primary Care Provider, Hospitalist] Time of Disposition: 01:09
[2025-09-10] MEDS: KETOROLAC 15 MG/ML VIAL (*BKC) IV PUSH (23:15)
[2025-09-10] MEDS: FAMOTIDINE 20 MG/2 ML VIAL IV PUSH (23:16)
[2025-09-11] VITALS (7 sets, daily range): PULSE 68–76; O2SAT 99–100
--- NOTE | 2025-09-11 01:10 | ECG_ITS ---
Test Date: 2025-09-11 01:10:22 Measurements Intervals [place] Rate: 65 P: 36 VA: 160 QRS: 10 QRSD: 101 T: 3 QT: 367 QTc: 383 Interpretive Statements SINUS RHYTHM MINIMAL VOLTAGE CRITERIA FOR LVH, CONSIDER NORMAL VARIANT [MEETS CRITERIA IN ONE OF: R(aVL), S(V1), R(V5), R(V5/V6)+S(V1)] Compared to ECG 05/22/2025 19:46:23 No significant changes Electronically Signed On 09-11-2025 12:06:16 [employer] AND RECREATION MANAGER by Messi Ibrahim M.D.
[2025-09-11 01:28] LABS: Troponin I < 0.012 ng/mL (0.000-0.034)
== END 2025-09-11 02:12 | disposition home or self-care (01) ==
PROVIDERS: Emergency Provider Student in an Organized Health Care Education/Training Program; PCP Internal Medicine
DX: R07.89 Other chest pain (principal)
CPT/HCPCS: 36415; 71046; 80053; 83880; 84484; 85025; 85380; 85610; 85730; 93005; 96374; 96375; 99284; A9270; J1885